=== PATIENT | female | born 1975 | race African-American/Black ===

== ENCOUNTER 2019-07-18 19:41 | Inpatient (IN) | payer OTHER ==
[~2019-07-18 19:41] MED LIST: PROPOFOL 10 MG/ML 20 ML VIAL IV ONE; SUCCINYLCHOLINE CHLORIDE VIAL 200 MG/10 ML VIAL IV ONE
[2019-07-18] MEDS ORDERED: KETOROLAC 30 MG/ML 1 ML VIAL IVP STA (23:50)
--- NOTE | 2019-07-19 00:37 | P.HPIM ---
History of Present Illness H&P Date: 07/18/19 Chief Complaint: cough SOB I was wearing full PPE during this encounter including N95 mask, face shield, double gloves, gown, and head cover. patient had a surgical mask on during my entire interview. i maintained 6 feet distance with the patient who verbalized understanding about these precautionary measures. except for during my physical exam where i had to be close to the patient. 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 Patient denies any recent traveling. Patient was hospitalized briefly on July 05 when she initially presented to [facility]. No recent surgeries no history of blood clots She went back to the hospital today due to increased work of breathing she was found to be hypoxic 87% on room air she was started on supplemental oxygen and currently satting 100% on 5 L nasal cannula Otherwise patient denies any other medical history Patient doesn't take any medications at home Significant blood work from [facility] Covid positive Chest x-ray showed diffuse bilateral infiltrates White BC count 16 Platelets 511 Lymphocytes 3.14 D-dimer 2.7 this is for prognostic evaluation of Covid and this is not done due to suspicion of underlying blood clots ProBNP negative Troponins negative Review of Systems Pertinent positives as noted in HPI. All other systems were reviewed and are negative Past Medical History Past Medical History: Fibromyalgia History of Any Multi-Drug Resistant Organisms: None Reported Past Surgical History: Hysterectomy, Tonsillectomy Additional Past Surgical History / Comment(s): Tubes tied, emergency D+C, breast reduction Past Anesthesia/Blood Transfusion Reactions: No Reported Reaction Past Psychological History: No Psychological Hx Reported Smoking Status: Never smoker Past Alcohol Use History: None Reported Past Drug Use History: None Reported - Past Family History Family Family Medical History: No Reported History Medications and Allergies Allergies Allergy/AdvReac Type Severity Reaction Status Date / Time No Known Allergies Allergy Verified 07/18/19 23:49 Physical Exam Vitals: Vital Signs Temp Pulse Resp BP Pulse Ox 07/18/19 22:14 102.7 F H 134 H 14 125/71 94 L Intake and Output 07/18/19 07/18/19 07/19/19 14:59 22:59 06:59 Output Total 200 Balance -200 Output: Urine 200 Other: # Voids 1 Weight 78 kg Limited exam was done during this encounter, to decrease spread of the disease and infection health care workers as patient is confirmed Kovic positive patient Constitutional: No acute distress, conversant, pleasant, and nasal cannula Eyes: Anicteric sclerae, Pupils equal round ENMT: NC/AT Neck: Supple, FROM, Lungs: Normal respiratory effort, no accessory muscle use Cardiovascular: No peripheral edema Abdominal: Soft Nontender, no guarding, rebound or rigidity Abdomen moving with respiration No palpable mass Skin: Visible portion of the skin Normal temperature, tone, texture, turgor Extremities: No digital cyanosis Capillary refill immediate No calf tenderness Psychiatric: Alert and oriented to person, place and time Appropriate affect fair judgement Neuro patient is moving all extremities Lymphatics: Deferred Thrombosis Risk Factor Assmnt - Choose All That Apply Any of the Below Risk Factors Present?: No Other Risk Factors: No Other congenital or acquired thrombophilia - If yes, enter type in comment: No Thrombosis Risk Factor Assessment Level: Very Low Risk Assessment and Plan Assessment: 44-year-old female with fibromyalgia Patient was transferred from [facility] for covid 19 pneumonia, this was confirmed by blood work resulted on July 16. Anticipated length of stay more than 2 midnights Acute hypoxic respiratory failure Atypical Pneumonia secondary to Covid positive cannot rule out underlying bacterial infection D-dimer is elevated this is of poor prognostic factor with Covid patient's Start patient on plaque renal Rocephin for suspected bacterial infection pneumonia Doxycycline for suspected atypical pneumonia Check CRP, LDH, pro calcitonin, CPK, check ferritin. This is for prognostic evaluation Check blood culture Check influenza Fever control with Tylenol Pain control with Toradol zinc pO Preformed a thorough record review from recent hospitalization [facility] reviewed transfer paper work Supplemental oxygen to keep both sides more than 92% CODE STATUS:ful code DVT prophylaxis: heparin sc tid Discussed with: Patient, ER, RN Anticipated length of stay > than [address]: [facility] A total of 60 minutes was spent on the care of this complex patient more than 50% of the time was spent in counseling and care coordination.
[2019-07-19] MEDS ORDERED: ACETAMINOPHEN TAB 325 MG TAB PO PRN (00:38)
[2019-07-19] MEDS ORDERED: NALOXONE 0.4 MG/ML 1 ML VIAL IV PRN (00:38)
--- NOTE | 2019-07-19 01:46 | XR ---
EXAMINATION TYPE: XR chest 1V DATE OF EXAM: 07/19/2019 COMPARISON: NONE HISTORY: Fever. Short of breath TECHNIQUE: FINDINGS: Heart and mediastinum appear normal. There is patchy pulmonary edema. There is coalescent d ensity in both lower lobes. There are chest leads. IMPRESSION: Patchy pulmonary edema could relate to RDS or acute heart failure.
[2019-07-19] MEDS: DOXYCYCLINE 100 MG CAP PO SCH ×3 (02:09→21:48)
[2019-07-19] MEDS: HYDROXYCHLOROQUINE SULFATE 200 MG TAB PO SCH ×3 (02:09→21:48)
[2019-07-19 03:24] LABS: C Reactive Protein 188.9 mg/L (<10.0)
[2019-07-19] MEDS: HEPARIN SODIUM,PORCINE 5,000 UNIT/ML 1 ML VIAL SQ SCH ×2 (07:06→16:34)
[2019-07-19] MEDS: KETOROLAC 30 MG/ML 1 ML VIAL IVP PRN (07:06)
[2019-07-19] MEDS: ZINC SULFATE 220 MG CAP PO SCH (07:06)
[2019-07-19 10:22] LABS: Basophils % (A) 0 %; Eosinophils # (A) 0.1 k/uL (0-0.7); Eosinophils % (A) 1 %; HCT 36.6 % (34.0-46.0); HGB 11.4 gm/dL (11.4-16.0); Lymphocytes # (A) 1.3 k/uL (1.0-4.8); Lymphocytes % (A) 7 %; MCH 30.1 pg (25.0-35.0); MCHC 31.3 g/dL (31.0-37.0); MCV 96.2 fL (80.0-100.0); Mean Platelet Volume 7.6; Monocytes # (A) 1.3 k/uL (0-1.0); Monocytes % (A) 6 %; Neutrophils # (A) 16.7 k/uL (1.3-7.7); Neutrophils % (A) 84 %; Platelet Count 510 k/uL (150-450); RDW 12.6 % (11.5-15.5); WBC 19.9 k/uL (3.8-10.6)
[2019-07-19 11:25] LABS: Ferritin 953.2 ng/mL (10.0-291.0)
[2019-07-19 11:47] LABS: ABG Base Excess 2.6 mmol/L; ABG HCO3 27 mmol/L (21-25); ABG Oxygen Saturation 96.7 % (94-97); ABG PCO2 40 mmHg (35-45); ABG PH 7.44 (7.35-7.45); ABG PO2 86 mmHg (83-108); ABG TCO2 28 mmol/L (19-24); Allen Test Performed? Yes
[2019-07-19] MEDS ORDERED: ACETAMINOPHEN IV (For NPO) 1,000 MG in EMPTY BAG 1 BAG IVPB ONE (12:12)
--- NOTE | 2019-07-19 13:58 | P.CNPUL ---
<Dominga Roman M - Last Filed: 07/19/19 13:58> History of Present Illness Consult date: 07/19/19 Reason for consult: dyspnea History of present illness: 44-year-old -[place] female a resident of [place], who was a transfer from [facility] yesterday on 07/18/2019. Patient presented with 2 week history of progressive worsening coughing, generalized weakness, intermittent fevers, generalized body aches and chest discomfort across the chest, mainly on the left side. Patient was unsure about loss of taste or smell sensation. Denied any GI symptoms, no abdominal pain, denied any known Clovid exposure. However patient started a new job and she had some traveling back and forth from [place]. She had a recent visit to the hospital o n July 05 and she was tested for COVID and the test came back positive on July 16. On presentation yesterday on 07/18/2019 patient was hypoxic, short of breath, with increased work of breathing, her pulse ox was 87% on room air, x- ray showing diffuse bilateral infiltrates, labs showing leukocytosis with white blood cell count of 19.9 hemoglobin of 11.4, lactic acid was 1.2, ferritin was 953.2, LDH was 1327, CK was 67, CRP was 188.9, influenza screen was negative. Chest x-ray shows patchy pulmonary infiltrates that could relate to ARDS. Possibility of pulmonary edema, heart failure is less likely given the positive history of Covid 19 infection. Review of Systems All systems: negative Constitutional: Denies chills, Denies fever Eyes: denies blurred vision, denies pain Ears, nose, mouth and throat: Denies headache, Denies sore throat Cardiovascular: Denies chest pain, Denies shortness of breath Respiratory: Reports dyspnea, Denies cough Gastrointestinal: Denies abdominal pain, Denies diarrhea, Denies nausea, Denies vomiting Genitourinary: Denies dysuria, Denies hematuria Musculoskeletal: Denies myalgias Integumentary: Denies pruritus, Denies rash Neurological: Denies numbness, Denies weakness Psychiatric: Denies anxiety, Denies depression Endocrine: Denies fatigue, Denies weight change Past Medical History Past Medical History: Fibromyalgia History of Any Multi-Drug Resistant Organisms: None Reported Past Surgical History: Hysterectomy, Tonsillectomy Additional Past Surgical History / Comment(s): Tubes tied, emergency D+C, breast reduction Past Anesthesia/Blood Transfusion Reactions: No Reported Reaction Past Psychological History: No Psychological Hx Reported Smoking Status: Never smoker Past Alcohol Use History: None Reported Past Drug Use History: None Reported - Past Family History Family Family Medical History: No Reported History Medications and Allergies Home Medications Medication Instructions Recorded Confirmed Type Albuterol Inhaler [Ventolin Hfa 1 - 2 puff INHALATION RT-Q4H PRN 07/19/19 07/19/19 History Inhaler] Ipratropium-Albuterol Nebulize 3 ml INHALATION RT-QID PRN 07/19/19 07/19/19 History [Duoneb 0.5 mg-3 mg/3 ml Soln] Allergies Allergy/AdvReac Type Severity Reaction Status Date / Time No Known Allergies Allergy Verified 07/19/19 08:59 Physical Exam Vitals: Vital Signs Temp Pulse Resp BP Pulse Ox 07/19/19 10:58 97.9 F 54 L 26 H 109/71 100 07/19/19 08:00 54 L 22 07/19/19 07:00 98.5 F 126 H 22 100/69 98 07/19/19 03:26 98.2 F 112 H 14 101/61 98 07/18/19 22:14 102.7 F H 134 H 14 125/71 94 L Intake and Output 07/18/19 07/19/19 07/19/19 22:59 06:59 14:59 Intake Total 50 Output Total 400 Balance -350 Intake: Intake, IV Titration 50 Amount cefTRIAXone 1 gm In 50 Sodium Chloride 0.9% 50 ml @ 100 mls/hr IVPB Q24H [facility] Rx#:[id number] Output: Urine 400 Other: Voiding Method Toilet Toilet # Voids 1 Weight 78 kg GENERAL EXAM: Alert, very pleasant, 42 mechanical female, mildly tachypneic, on 5 L of oxygen comfortable in no apparent distress. Mildly dyspneic, and complaining of some discomfort in her left chest with deep breathing and coughing HEAD: Normocephalic/atraumatic. EYES: Normal reaction of pupils, equal size. Conjunctiva pink, sclera white. NOSE: Clear with pink turbinates. THROAT: No erythema or exudates. NECK: No masses, no JVD, no thyroid enlargement, no adenopathy. CHEST: No chest wall deformity. Symmetrical expansion. LUNGS: Equal air entry with no crackles, wheeze, rhonchi or dullness. CVS: Regular rate and rhythm, normal S1 and S2, no gallops, no murmurs, no rubs ABDOMEN: Soft, nontender. No hepatosplenomegaly, normal bowel sounds, no guarding or rigidity. EXTREMITIES: No clubbing, no edema, no cyanosis, 2+ pulses and upper and lower extremities. MUSCULOSKELETAL: Muscle strength and tone normal. SPINE: No scoliosis or deformity SKIN: No rashes CENTRAL NERVOUS SYSTEM: Alert and oriented -3. No focal deficits, tone is normal in all 4 extremities. PSYCHIATRIC: Alert and oriented -3. Appropriate affect. Intact judgment and insight. Results - Laboratory Findings CBC and BMP: 07/19/19 09:52 ABG ABG pH 7.44 (7.35-7.45) 07/19/19 11:43 ABG pCO2 40 mmHg (35-45) 07/19/19 11:43 ABG pO2 86 mmHg (83-108) 07/19/19 11:43 ABG O2 Saturation 96.7 % (94-97) 07/19/19 11:43 Abnormal lab findings: Abnormal Labs 07/19/19 07/19/19 07/19/19 01:31 09:52 11:43 WBC 19.9 H Plt Count 510 H Neutrophils # 16.7 H Monocytes # 1.3 H ABG HCO3 27 H ABG Total CO2 28 H Ferritin 953.2 H Lactate Dehydrogenase 1327 H C-Reactive Protein 188.9 H - Diagnostic Findings Chest x-ray: report reviewed, image reviewed Assessment and Plan Plan: Assessment: #1. Acute hypercapnic respiratory failure related to acute COVID19 infection related ARDS, possibility of acute congestive heart failure is less likely given the history of COVID 19 infection #2. Elevated d-dimer, LDH, CRP, ferritin, related to acute Covid 19 infection #3. Intermittent fevers, cough, shortness of breath related to the above #4. History of fibromyalgia #5. Never smoker #6. History of tubal ligation, breast reduction, and emergency D&C Plan: Blood gas has been obtained and reviewed, patient has been seen and evaluated by Dr. Hough. She is mildly dyspneic, she is currently on 5 L of oxygen, we will continue to monitor her on selective care, in case her oxygen demand increases, we will transfer to the intensive care unit, and likely place her on mechanical ventilator, she is mildly dyspneic, but no acute distress right now, she can continue to be monitored on the floor. Her lab work has been reviewed, she is already on a combination of hydroxychloroquine, Rocephin, doxycycline and zinc. Chest x-ray has been reviewed, findings are consistent with ARDS limited to Covid 19 infection. Continue to closely monitor her clinical course I performed a history & physical examination of the patient and discussed their management with my nurse practitioner, Dominga Roman. I reviewed the nurse practitioner's note and agree with the documented findings and plan of care. Lung sounds are positive for diminished breath sounds. The findings and the impression was discussed with the patient. I attest to the documentation by the nurse practitioner. Time with Patient: Greater than 30 <Ida Hough - Last Filed: 07/19/19 13:59> Physical Exam Vitals: Vital Signs Temp Pulse Resp BP Pulse Ox 07/19/19 10:58 97.9 F 54 L 26 H 109/71 100 07/19/19 08:00 54 L 22 07/19/19 07:00 98.5 F 126 H 22 100/69 98 07/19/19 03:26 98.2 F 112 H 14 101/61 98 07/18/19 22:14 102.7 F H 134 H 14 125/71 94 L Intake and Output 07/18/19 07/19/19 07/19/19 22:59 06:59 14:59 Intake Total 50 Output Total 400 Balance -350 Intake: Intake, IV Titration 50 Amount cefTRIAXone 1 gm In 50 Sodium Chloride 0.9% 50 ml @ 100 mls/hr IVPB Q24H [facility] Rx#:[id number] Output: Urine 400 Other: Voiding Method Toilet Toilet # Voids 1 Weight 78 kg Results - Laboratory Findings CBC and BMP: 07/19/19 09:52 ABG ABG pH 7.44 (7.35-7.45) 07/19/19 11:43 ABG pCO2 40 mmHg (35-45) 07/19/19 11:43 ABG pO2 86 mmHg (83-108) 07/19/19 11:43 ABG O2 Saturation 96.7 % (94-97) 07/19/19 11:43 Abnormal lab findings: Abnormal Labs 07/19/19 07/19/19 07/19/19 01:31 09:52 11:43 WBC 19.9 H Plt Count 510 H Neutrophils # 16.7 H Monocytes # 1.3 H ABG HCO3 27 H ABG Total CO2 28 H Ferritin 953.2 H Lactate Dehydrogenase 1327 H C-Reactive Protein 188.9 H Assessment and Plan Plan: This is a joint evaluation that was done with the nurse practitioner. The patient we will monitored very closely. She is on 4 L of oxygen by nasal cannula. Blood gases was noted. Chest x-ray was noted. She will likely need to be transferred to the intensive care unit if her condition gets worse. We'll follow.
[2019-07-19] MEDS: ACETAMINOPHEN TAB 500 MG TAB PO PRN ×2 (16:34→21:45)
--- NOTE | 2019-07-19 20:44 | P.PN ---
Subjective Progress Note Date: 07/19/19 (delayed charting seen at 1115) Principal diagnosis: shortness of breath Patient is a 44-year-old -[place] female past medical history of fibromyalgia who presented as a transfer from [facility] as part of the Covid 19 relief process. Patient had been having symptoms starting on July 05 and she was tested for Covid which came back on July 16 as positive. She init ially been hospitalized for one day. She went back to the hospital on 07/18/2019 due to increased work of breathing. She was found to be hypoxic at 87% on room air, chest x-ray showed diffuse bilateral infiltrates, white blood cell count 16, platelets 511, lymphocytes 3.14, d-dimer 2.5 and BNP and troponins were negative. She was subsequently transferred here. She was started on hydroxychloroquine, doxycycline for possible atypical pneumonia and Rocephin for possible secondary bacterial infection. Patient seen and examined at bedside. She complains of shortness of breath, fatigue, chest pain. She states she is just feeling tired and having a hard time staying awake. She states that her chest discomfort is increasing. She denies any nausea, vomiting, or diarrhea. Objective - Vital Signs Vital signs: Vital Signs Temp 98.7 F 07/19/19 15:00 Pulse 112 H 07/19/19 15:49 Resp 24 07/19/19 15:49 BP 99/60 07/19/19 15:00 Pulse Ox 96 07/19/19 15:00 Intake & Output 07/19/19 07/19/19 07/20/19 06:59 18:59 06:59 Intake Total 50 500 Output Total 400 200 Balance -350 300 Weight 78 kg Intake: Intake, IV Titration 50 100 Amount ACETAMINOPHEN IV (For NPO 100 ) 1,000 mg In Empty Bag 1 bag @ 400 mls/hr IVPB ONCE ONE Rx#:[id number] cefTRIAXone 1 gm In 50 Sodium Chloride 0.9% 50 ml @ 100 mls/hr IVPB Q24H [facility] Rx#:[id number] Oral 400 Output: Urine 400 200 Other: Voiding Method Toilet Toilet # Voids 1 3 - Exam General: ill appearing, mild distress, appears at stated age Derm: warm, dry Head: atraumatic, normocephalic, symmetric Eyes: EOMI, no lid lag, anicteric sclera Mouth: no lip lesion, mucus membranes moist Cardiovascular: S1S2 reg, no murmur, positive posterior tibial pulse bilateral, Lungs: course bs bilateral, + accessory muscle use, + 2 word conversation dyspnea Abdominal: soft, nontender to palpation, no guarding, no appreciable organomegaly Ext: no gross muscle atrophy, no edema, no contractures Neuro: CN II-XI grossly intact, no focal neuro deficits Psych: Alert, oriented, appropriate affect - Labs CBC & Chem 7: 07/19/19 09:52 Labs: Abnormal Lab Results - Last 24 Hours (Table) 07/19/19 07/19/19 07/19/19 Range/Units 01:31 01:31 09:52 WBC 19.9 H (3.8-10.6) k/uL Plt Count 510 H (150-450) k/uL Neutrophils # 16.7 H (1.3-7.7) k/uL Monocytes # 1.3 H (0-1.0) k/uL ABG HCO3 (21-25) mmol/L ABG Total CO2 (19-24) mmol/L Ferritin 953.2 H (10.0-291.0) ng/mL Lactate Dehydrogenase 1327 H (313-618) U/L C-Reactive Protein 188.9 H (<10.0) mg/L Procalcitonin >100.00 H (0.02-0.09) ng/mL 07/19/19 Range/Units 11:43 WBC (3.8-10.6) k/uL Plt Count (150-450) k/uL Neutrophils # (1.3-7.7) k/uL Monocytes # (0-1.0) k/uL ABG HCO3 27 H (21-25) mmol/L ABG Total CO2 28 H (19-24) mmol/L Ferritin (10.0-291.0) ng/mL Lactate Dehydrogenase (313-618) U/L C-Reactive Protein (<10.0) mg/L Procalcitonin (0.02-0.09) ng/mL Assessment and Plan Assessment: Bilateral pneumonia which is atypical, COVID-19 positive infection, acute hypoxic respiratory failure, sepsis -Cannot rule out secondary bacterial infection currently on Doxy and Rocephin -Follow CRP, LDH, pro-calcitonin, CPK, and ferritin. -Influenza negative -Procalcitonin greatly positive -Chest x-ray shows patchy pulmonary edema related to acute heart failure or RDS - BNP in AM - Stat ABG obtained - Pulm consulted - hydorxychloriquine, zinc Costochondritis -Tylenol and Toradol for pain control Fibromyalgia Supportive care DVT prophylaxis: Heparin Discussed with: patient, nursing, Dr Hough Anticipated discharge: 5-[address]: home A total of 45 minutes was spent on the care of this complex patient more than 50% of the time was spent in counseling and care coordination.
[2019-07-19] MEDS: SODIUM CHLORIDE 0.9% 1,000 ML IV SCH (21:49)
--- NOTE | 2019-07-19 23:19 | P.CONS ---
History of Present Illness - Reason for Consult Consult date: 07/19/19 COVID 19 PNEUMONIA Requesting physician: John Paul Johnson - Chief Complaint Shortness of breath and cogh x days - History of Present Illness Patient is a 44-year-old female with a past medical history significant for fibromyalgia presented to [facility] with worsening cough generalized weakness and body aches patient was noticed to be hypoxic with an O2 sats of 87% on room air requiring supplemental oxygen patient had did have a COVID-19 testing which came back positive chest x-ray shows diffuse bilateral infiltrate patient subsequently has been transferred to [facility] for further management of underlying COVID-19 infection. On examination patient T-max is 102 F she is currently satting 96% on 5 L nasal cannula Lung examination did shows decrease intensity of breath sounds with mild wheeze Chest x-ray with patchy pulmonary infiltrate A/P--- patient with acute COVID-19 pneumonia patient will be treated with Plaquenil zinc may benefit from low-dose steroids along with supplemental oxygen prognosis remains to be guarded with concern for worsening respiratory distress and ARDS that need to be monitored closely Past Medical History Past Medical History: Fibromyalgia History of Any Multi-Drug Resistant Organisms: None Reported Past Surgical History: Hysterectomy, Tonsillectomy Additional Past Surgical History / Comment(s): Tubes tied, emergency D+C, breast reduction Past Anesthesia/Blood Transfusion Reactions: No Reported Reaction Past Psychological History: No Psychological Hx Reported Smoking Status: Never smoker Past Alcohol Use History: None Reported Past Drug Use History: None Reported - Past Family History Family Family Medical History: No Reported History Medications and Allergies Home Medications Medication Instructions Recorded Confirmed Type Albuterol Inhaler [Ventolin Hfa 1 - 2 puff INHALATION RT-Q4H PRN 07/19/19 07/19/19 History Inhaler] Ipratropium-Albuterol Nebulize 3 ml INHALATION RT-QID PRN 07/19/19 07/19/19 History [Duoneb 0.5 mg-3 mg/3 ml Soln] Allergies Allergy/AdvReac Type Severity Reaction Status Date / Time No Known Allergies Allergy Verified 07/19/19 08:59 Physical Exam Vitals: Vital Signs Temp Pulse Resp BP Pulse Ox 07/19/19 10:58 97.9 F 54 L 26 H 109/71 100 07/19/19 08:00 54 L 22 07/19/19 07:00 98.5 F 126 H 22 100/69 98 07/19/19 03:26 98.2 F 112 H 14 101/61 98 07/18/19 22:14 102.7 F H 134 H 14 125/71 94 L Intake and Output 07/19/19 07/19/19 07/19/19 06:59 14:59 22:59 Intake Total 50 Output Total 400 Balance -350 Intake: Intake, IV Titration 50 Amount cefTRIAXone 1 gm In 50 Sodium Chloride 0.9% 50 ml @ 100 mls/hr IVPB Q24H [facility] Rx#:[id number] Output: Urine 400 Other: Voiding Method Toilet Toilet # Voids 1 Results CBC & Chem 7: 07/19/19 09:52 Labs: Abnormal Lab Results - Last 24 Hours (Table) 07/19/19 07/19/19 07/19/19 Range/Units 01:31 01:31 09:52 WBC 19.9 H (3.8-10.6) k/uL Plt Count 510 H (150-450) k/uL Neutrophils # 16.7 H (1.3-7.7) k/uL Monocytes # 1.3 H (0-1.0) k/uL ABG HCO3 (21-25) mmol/L ABG Total CO2 (19-24) mmol/L Ferritin 953.2 H (10.0-291.0) ng/mL Lactate Dehydrogenase 1327 H (313-618) U/L C-Reactive Protein 188.9 H (<10.0) mg/L Procalcitonin >100.00 H (0.02-0.09) ng/mL 07/19/19 Range/Units 11:43 WBC (3.8-10.6) k/uL Plt Count (150-450) k/uL Neutrophils # (1.3-7.7) k/uL Monocytes # (0-1.0) k/uL ABG HCO3 27 H (21-25) mmol/L ABG Total CO2 28 H (19-24) mmol/L Ferritin (10.0-291.0) ng/mL Lactate Dehydrogenase (313-618) U/L C-Reactive Protein (<10.0) mg/L Procalcitonin (0.02-0.09) ng/mL
[2019-07-20] MEDS ORDERED: SODIUM CHLORIDE 0.9% 500 ML 500 ML IV ONE (00:08)
[2019-07-20] MEDS: KETOROLAC 30 MG/ML 1 ML VIAL IVP PRN ×3 (00:13→19:35)
[2019-07-20] MEDS: HEPARIN SODIUM,PORCINE 5,000 UNIT/ML 1 ML VIAL SQ SCH ×4 (00:14→23:54)
[2019-07-20 07:53] LABS: Basophils % (A) 0 %; Eosinophils # (A) 0.1 k/uL (0-0.7); Eosinophils % (A) 1 %; HCT 32.5 % (34.0-46.0); Hypochromasia Slight; Lymphocytes # (A) 1.1 k/uL (1.0-4.8); Lymphocytes % (A) 5 %; MCH 29.7 pg (25.0-35.0); MCHC 30.7 g/dL (31.0-37.0); MCV 96.6 fL (80.0-100.0); Mean Platelet Volume 7.7; Monocytes % (A) 4 %; Neutrophils # (A) 20.4 k/uL (1.3-7.7); Neutrophils % (A) 89 %; Platelet Count 474 k/uL (150-450); RBC 3.36 m/uL (3.80-5.40); RDW 12.9 % (11.5-15.5)
[2019-07-20 08:10] LABS: ALT 18 U/L (4-34); AST 24 U/L (14-36); African American GFR (CKD) >90 (>60 ml/min/1.73 sqM); Albumin 2.8 g/dL (3.5-5.0); Alkaline Phosphatase 84 U/L (38-126); Anion Gap 6 mmol/L; Blood Urea Nitrogen 12 mg/dL (7-17); Calcium 8.5 mg/dL (8.4-10.2); Carbon Dioxide 25 mmol/L (22-30); Chloride 105 mmol/L (98-107); Creatine Kinase 63 U/L (30-135); Glucose 101 mg/dL (74-99); LDH 995 U/L (313-618); Non-African American GFR(CKD) >90 (>60 ml/min/1.73 sqM); Potassium 4.4 mmol/L (3.5-5.1); Sodium 136 mmol/L (137-145); Total Bilirubin 0.7 mg/dL (0.2-1.3); Total Protein 6.1 g/dL (6.3-8.2)
[2019-07-20] MEDS: DOXYCYCLINE 100 MG CAP PO SCH (08:12)
[2019-07-20] MEDS: ZINC SULFATE 220 MG CAP PO SCH (08:12)
[2019-07-20] MEDS: HYDROXYCHLOROQUINE SULFATE 200 MG TAB PO SCH ×2 (08:12→21:05)
[2019-07-20 08:52] LABS: C Reactive Protein 349.8 mg/L (<10.0)
--- NOTE | 2019-07-20 10:01 | XR ---
EXAMINATION TYPE: XR chest 1V portable DATE OF EXAM: 07/20/2019 HISTORY: PNEUMONIA, covid. REFERENCE: Previous study dated 07/19/2019. FINDINGS: There are patchy peripheral infiltrates. There is lobar consolidation in the left lower lob e. Heart size is upper limits of normal. There is blunting of the left CP angle. I could not exclude a left effusion. The overall appearance may have worsened slightly from previous. IMPRESSION: SLIGHT WORSENING IN THE APPEARANCE OF THE CHEST COMPARED TO THE PREVIOUS STUDY.
[2019-07-20] MEDS ORDERED: SODIUM CHLORIDE 0.9% 1,000 ML IV ONE ×2 (10:13→11:40)
[2019-07-20] MEDS: ACETAMINOPHEN TAB 500 MG TAB PO PRN ×2 (11:08→19:45)
[2019-07-20] MEDS ORDERED: VANCOMYCIN IV PER PHARMACY 1 EACH MISC MISCELLANE PRN (11:29)
[2019-07-20] MEDS: PIPERACILLIN-TAZOBACTAM 3.375 GM in SODIUM CHLORIDE 0.9% 100 ML IVPB SCH ×2 (11:40→21:05)
[2019-07-20] MEDS ORDERED: VANCOMYCIN 1,500 MG in SODIUM CHLORIDE 0.9% 250 ML IVPB ONE (12:00)
--- NOTE | 2019-07-20 13:13 | P.PN ---
Subjective Progress Note Date: 07/20/19 Principal diagnosis: Acute hypoxemic respiratory failure secondary to an acute covert 19 infection related to ARDS 44-year-old -[place] female a resident of [place], who was a transfer from [facility] yesterday on 07/18/2019. Patient presented with 2 week history of progressive worsening coughing, generalized weakness, intermittent fevers, generalized body aches and chest discomfort across the chest, mainly on the left side. Patient was unsure about loss of taste or smell sensation. Denied any GI symptoms, no abdominal pain, denied any known Clovid exposure. However patient started a new job and she had some traveling back and forth from [place]. She had a recent visit to the hospital on July 05 and she was tested for COVID and the test came back positive on July 16. On presentation yesterday on 07/18/2019 patient was hypoxic, short of breath, with increased work of breathing, her pulse ox was 87% on room air, x- ray showing diffuse bilateral infiltrates, labs showing leukocytosis with white blood cell count of 19.9 hemoglobin of 11.4, lactic acid was 1.2, ferritin was 953.2, LDH was 1327, CK was 67, CRP was 188.9, influenza screen was negative. Chest x-ray shows patchy pulmonary infiltrates that could relate to ARDS. Pos sibility of pulmonary edema, heart failure is less likely given the positive history of Covid 19 infection. The patient is seen today 07/20/2019 in follow-up on the regular medical floor. She is currently resting fairly comfortably in bed. She is still short of breath with exertion. Still with a dry nonproductive cough. She is currently on 3 L/m per nasal cannula and maintaining O2 saturations at 97%. She is febrile this morning at 100.3. Tachycardic. Blood pressure stable. White count 23.0. Hemoglobin 10.0. D-dimer 2.36. Sodium 136. Potassium 4.4. Creatinine 0.61. AST 24. ALT 18. C-reactive protein 350. Albumin 2.8. Chest x-ray shows worsening consolidation in the left lower lobe. Blood culture reveals no growth. She is currently on ceftriaxone. She is being treated with Plaquenil and zinc. Objective - Vital Signs Vital signs: Vital Signs Temp 100.3 F H 07/20/19 11:00 Pulse 145 H 07/20/19 11:00 Resp 17 07/20/19 11:00 BP 127/70 07/20/19 11:00 Pulse Ox 97 07/20/19 11:00 Intake & Output 07/19/19 07/20/19 07/20/19 18:59 06:59 18:59 Intake Total 500 Output Total 200 Balance 300 Intake: Intake, IV Titration 100 Amount ACETAMINOPHEN IV (For NPO 100 ) 1,000 mg In Empty Bag 1 bag @ 400 mls/hr IVPB ONCE ONE Rx#:[id number] Oral 400 Output: Urine 200 Other: Voiding Method Toilet Toilet # Voids 3 1 - Exam GENERAL EXAM: Alert, very pleasant, 44 year-old -[place] female, mildly tachypneic, on 3 L of oxygen comfortable in no acute distress. Mildly dyspneic, and complaining of some discomfort in her left chest with deep breathing and co ughing HEAD: Normocephalic/atraumatic. EYES: Normal reaction of pupils, equal size. Conjunctiva pink, sclera white. NOSE: Clear with pink turbinates. THROAT: No erythema or exudates. NECK: No masses, no JVD, no thyroid enlargement, no adenopathy. CHEST: No chest wall deformity. Symmetrical expansion. LUNGS: Equal air entry with bilateral rhonchi, crackles in the left base. CVS: Regular rate and rhythm, normal S1 and S2, no gallops, no murmurs, no rubs ABDOMEN: Soft, nontender. No hepatosplenomegaly, normal bowel sounds, no guarding or rigidity. EXTREMITIES: No clubbing, no edema, no cyanosis, 2+ pulses and upper and lower extremities. MUSCULOSKELETAL: Muscle strength and tone normal. SPINE: No scoliosis or deformity SKIN: No rashes CENTRAL NERVOUS SYSTEM: No focal deficits, tone is normal in all 4 extremities. PSYCHIATRIC: Alert and oriented -3. Appropriate affect. Intact judgment and insight. - Labs CBC & Chem 7: 07/20/19 07:24 07/20/19 07:24 Labs: Abnormal Lab Results - Last 24 Hours (Table) 07/19/19 07/20/19 07/20/19 Range/Units 01:31 07:24 07:24 WBC 23.0 H (3.8-10.6) k/uL RBC 3.36 L (3.80-5.40) m/uL Hgb 10.0 L (11.4-16.0) gm/dL Hct 32.5 L (34.0-46.0) % MCHC 30.7 L (31.0-37.0) g/dL Plt Count 474 H (150-450) k/uL Neutrophils # 20.4 H (1.3-7.7) k/uL D-Dimer (<0.60) mg/L FEU Sodium 136 L (137-145) mmol/L Glucose 101 H (74-99) mg/dL Lactate Dehydrogenase 995 H (313-618) U/L C-Reactive Protein 349.8 H (<10.0) mg/L Total Protein 6.1 L (6.3-8.2) g/dL Albumin 2.8 L (3.5-5.0) g/dL Procalcitonin >100.00 H (0.02-0.09) ng/mL 07/20/19 Range/Units 07:24 WBC (3.8-10.6) k/uL RBC (3.80-5.40) m/uL Hgb (11.4-16.0) gm/dL Hct (34.0-46.0) % MCHC (31.0-37.0) g/dL Plt Count (150-450) k/uL Neutrophils # (1.3-7.7) k/uL D-Dimer 2.36 H (<0.60) mg/L FEU Sodium (137-145) mmol/L Glucose (74-99) mg/dL Lactate Dehydrogenase (313-618) U/L C-Reactive Protein (<10.0) mg/L Total Protein (6.3-8.2) g/dL Albumin (3.5-5.0) g/dL Procalcitonin (0.02-0.09) ng/mL Microbiology - Last 24 Hours (Table) 07/19/19 01:31 Blood Culture - Preliminary Blood No Growth after 24 hours Assessment and Plan Assessment: #1. Acute hypercapnic respiratory failure related to acute COVID19 infection related ARDS, possibility of acute congestive heart failure is less likely given the history of COVID 19 infection. Today's chest x-ray shows worsening consolidation in the left lower lung #2. Elevated d-dimer, LDH, CRP, ferritin, related to acute Covid 19 infection #3. Intermittent fevers, cough, shortness of breath related to the above #4. History of fibromyalgia #5. Never smoker #6. History of tubal ligation, breast reduction, and emergency D&C Plan: The patient was seen and evaluated by Dr. Hough Chest x-ray does show worsening left lower lobe consolidation Probable secondary infection on top of Covid 19 Antibiotics changed from ceftriaxone and doxycycline to vancomycin and Zosyn Continue Plaquenil and zinc Repeat chest x-ray in a.m. Monitor oxygenation closely We will continue to follow make further recommendations based on her clinical status I, the cosigning physician, performed a history & physical examination of the patient. Lungs sounds with bilateral scattered rhonchi crackles in left base. Maintaining good O2 saturations in the 90s on 3 L/m per nasal cannula. I discussed the assessment and plan of care with my nurse practitioner, Antonieta Murguia. I attest to the above note as dictated by her.
--- NOTE | 2019-07-20 17:12 | P.PN ---
Subjective Progress Note Date: 07/20/19 (delayed charting see at 0900) Principal diagnosis: shortness of breath Patient is a 44-year-old -[place] female past medical history of fibromyalgia who presented as a transfer from [facility] as part of the Covid 19 relief process. Patient had been having symptoms starting on July 05 and she was tested for Covid which came back on July 16 as positive. She initi ally been hospitalized for one day. She went back to the hospital on 07/18/2019 due to increased work of breathing. She was found to be hypoxic at 87% on room air, chest x-ray showed diffuse bilateral infiltrates, white blood cell count 16, platelets 511, lymphocytes 3.14, d-dimer 2.5 and BNP and troponins were negative. She was subsequently transferred here. She was started on hydroxychloroquine, doxycycline for possible atypical pneumonia and Rocephin for possible secondary bacterial infection. On her O2 requirements increased and pul was consulted they agreed with plan of care. On the morning of she was having increased work of breathing and her heart rate was up to 154. She was given 2 1L bolus with good result. WBC increasing and CXR with more consolidation her ABX were changed to zosyn and vanco. Patient seen and examined at bedside. She complains of shortness of breath, fatigue, chest pain. She states she is just feeling tired and having a hard time staying awake. She states that her chest discomfort is increasing. She denies any nausea, vomiting, or diarrhea. Objective - Vital Signs Vital signs: Vital Signs Temp 97.7 F 07/20/19 15:00 Pulse 114 H 07/20/19 15:00 Resp 17 07/20/19 15:00 BP 112/76 07/20/19 15:00 Pulse Ox 100 07/20/19 15:00 Intake & Output 07/19/19 07/20/19 07/20/19 18:59 06:59 18:59 Intake Total 500 2470 Output Total 200 Balance 300 2470 Intake: Intake, IV Titration 100 2350 Amount ACETAMINOPHEN IV (For NPO 100 ) 1,000 mg In Empty Bag 1 bag @ 400 mls/hr IVPB ONCE ONE Rx#:[id number] Piperacillin-Tazobactam 3 100 .375 gm In Sodium Chloride 0.9% 100 ml @ 25 mls/hr IVPB Q8H [facility] Rx#: [id number] Sodium Chloride 0.9% 1, 1000 000 ml @ 999 mls/hr IV . Q1H1M ONE Rx#:[id number] Sodium Chloride 0.9% 1, 1000 000 ml @ 999 mls/hr IV . Q1H1M ONE Rx#:[id number] Vancomycin 1,500 mg In 250 Sodium Chloride 0.9% 250 ml @ 125 mls/hr IVPB Q12HR [facility] Rx#:[id number] Oral 400 120 Output: Urine 200 Other: Voiding Method Toilet Toilet # Voids 3 1 - Exam General: ill appearing, mild distress, appears at stated age Derm: warm, diaphoretic Head: atraumatic, normocephalic, symmetric Eyes: EOMI, no lid lag, anicteric sclera Mouth: no lip lesion, mucus membranes moist Cardiovascular: S1S2 tachy, no murmur, positive posterior tibial pulse bilateral, Lungs: course bs bilateral, + accessory muscle use, + 2 word conversational dyspnea Abdominal: soft, nontender to palpation, no guarding, no appreciable organomeg torrey Ext: no gross muscle atrophy, no edema, no contractures Neuro: CN II-XI grossly intact, no focal neuro deficits Psych: Alert, oriented, appropriate affect - Labs CBC & Chem 7: 07/20/19 07:24 07/20/19 07:24 Labs: Abnormal Lab Results - Last 24 Hours (Table) 07/20/19 07/20/19 07/20/19 Range/Units 07:24 07:24 07:24 WBC 23.0 H (3.8-10.6) k/uL RBC 3.36 L (3.80-5.40) m/uL Hgb 10.0 L (11.4-16.0) gm/dL Hct 32.5 L (34.0-46.0) % MCHC 30.7 L (31.0-37.0) g/dL Plt Count 474 H (150-450) k/uL Neutrophils # 20.4 H (1.3-7.7) k/uL D-Dimer 2.36 H (<0.60) mg/L FEU Sodium 136 L (137-145) mmol/L Glucose 101 H (74-99) mg/dL Lactate Dehydrogenase 995 H (313-618) U/L C-Reactive Protein 349.8 H (<10.0) mg/L Total Protein 6.1 L (6.3-8.2) g/dL Albumin 2.8 L (3.5-5.0) g/dL Microbiology - Last 24 Hours (Table) 07/19/19 01:31 Blood Culture - Preliminary Blood No Growth after 24 hours Assessment and Plan Assessment: left lower lobe pneumonia with bilateral pneumonitis suspect secondary bacterial infection with COVID-19 positive infection, acute hypoxic respiratory failure, sepsis -Cannot rule out secondary bacterial infection Doxy and Rocephin increased to vanco and zosyn -Follow CRP, LDH, pro-calcitonin, CPK, and ferritin. -Influenza negative -Procalcitonin greatly positive - follow CXR - BNP in AM - Pulm recs appreciated - hydorxychloriquine, zinc - 2L bolus Costochondritis -Tylenol and Toradol for pain control Fibromyalgia Supportive care DVT prophylaxis: Heparin Discussed with: patient, nursing, Dr Hough Anticipated discharge: 5-[address]: home A total of 35 minutes was spent on the care of this complex patient more than 50% of the time was spent in counseling and care coordination.
[2019-07-20] MEDS ORDERED: guaiFENesin-Coden 100-10MG/5ML 10 ML CUP PO PRN (17:47)
[2019-07-20 18:34] LABS: ABG Base Excess -2.1 mmol/L; ABG HCO3 22 mmol/L (21-25); ABG Oxygen Saturation 94.2 % (94-97); ABG PCO2 33 mmHg (35-45); ABG PH 7.43 (7.35-7.45); ABG PO2 70 mmHg (83-108); ABG TCO2 23 mmol/L (19-24); Allen Test Performed? Yes
[2019-07-20] MEDS: SODIUM CHLORIDE 0.9% 1,000 ML IV SCH ×2 (19:34→23:54)
[2019-07-20 20:06] LABS: Glucose,Whole Blood 99 mg/dL (75-99)
--- NOTE | 2019-07-20 20:54 | XR ---
EXAMINATION TYPE: XR chest 1V DATE OF EXAM: 07/20/2019 COMPARISON: Today HISTORY: Pneumonia. Chest pain TECHNIQUE: FINDINGS: There is airspace consolidation left lower lobe involving entire left lower lobe. There is also mild infiltrate right lower lobe. There is pulmonary vascular congestion. Heart is enlarged. The re are chest leads. IMPRESSION: Bilateral pneumonia much worse on the left side unchanged compared to exam this morning. Congestive heart failure is possible.
[2019-07-20] MEDS: VANCOMYCIN 1,500 MG in SODIUM CHLORIDE 0.9% 250 ML IVPB SCH (21:05)
[2019-07-20 23:22] LABS: Ferritin 787.5 ng/mL (10.0-291.0)
[2019-07-21] MEDS: PIPERACILLIN-TAZOBACTAM 3.375 GM in SODIUM CHLORIDE 0.9% 100 ML IVPB SCH ×3 (04:50→19:47)
[2019-07-21 05:29] LABS: Basophils % (A) 0 %; Eosinophils % (A) 0 %; HCT 23.6 % (34.0-46.0); HGB 8.7 gm/dL (11.4-16.0); Hypochromasia Marked; Lymphocytes # (A) 1.3 k/uL (1.0-4.8); Lymphocytes % (A) 6 %; MCH 37.1 pg (25.0-35.0); MCHC 36.9 g/dL (31.0-37.0); MCV 100.6 fL (80.0-100.0); Mean Platelet Volume 7.6; Monocytes # (A) 1.2 k/uL (0-1.0); Monocytes % (A) 6 %; Neutrophils # (A) 18.2 k/uL (1.3-7.7); Neutrophils % (A) 86 %; Platelet Count 458 k/uL (150-450); RBC 2.35 m/uL (3.80-5.40)
[2019-07-21 05:34] LABS: ALT 15 U/L (4-34); AST 32 U/L (14-36); African American GFR (CKD) >90 (>60 ml/min/1.73 sqM); Albumin 2.6 g/dL (3.5-5.0); Alkaline Phosphatase 136 U/L (38-126); Anion Gap 8 mmol/L; Blood Urea Nitrogen 8 mg/dL (7-17); Calcium 7.8 mg/dL (8.4-10.2); Carbon Dioxide 19 mmol/L (22-30); Chloride 110 mmol/L (98-107); Creatine Kinase 120 U/L (30-135); Glucose 81 mg/dL (74-99); LDH 1877 U/L (313-618); Magnesium 2.1 mg/dL (1.6-2.3); Non-African American GFR(CKD) >90 (>60 ml/min/1.73 sqM); Potassium 4.8 mmol/L (3.5-5.1); Sodium 137 mmol/L (137-145); Total Bilirubin 0.8 mg/dL (0.2-1.3)
--- NOTE | 2019-07-21 06:53 | XR ---
EXAMINATION TYPE: XR chest 1V DATE OF EXAM: 07/21/2019 HISTORY: LLL pneumonia. REFERENCE: Previous study dated 07/20/2019. FINDINGS: There is continuing bilateral airspace disease, worse on the left than the right. This may have worsened slightly on the right. Heart size is obscured. I suspect a left effusion. IMPRESSION: 1. BIBASILAR INFILTRATES. 2. I CANNOT EXCLUDE SLIGHT WORSENING IN THE PATIENT'S RIGHT BASILAR AIRSPACE DISEASE.
[2019-07-21 07:13] LABS: C Reactive Protein 414.9 mg/L (<10.0)
--- NOTE | 2019-07-21 08:05 | PN ---
PROGRESS NOTE DATE OF SERVICE: 07/20/2019 REASON FOR FOLLOWUP: Acute COVID-19 pneumonia. INTERVAL HISTORY: The patient has been running a fever in this patient noticed to have slightly increased shortness of breath this morning. The patient denies having any chest pain. She did have a cough, not bringing up any sputum. No nausea, no vomiting. No abdominal pain or any diarrhea. PHYSICAL EXAMINATION: Blood pressure is 130/73 with a pulse of 150, temperature 102.7. She is 98% on 6 L nasal cannula. General description is a middle-aged female lying in bed in no distress. Respiratory system: Unlabored breathing, decreased breath sounds in the base, with no wheeze. Heart S1, S2. Regular rate and rhythm. Abdomen soft, no tenderness. LABS: Hemoglobin is 10, white count 3000, BUN of 12, creatinine 0.61. DIAGNOSTIC IMPRESSION AND PLAN: Patient with acute respiratory failure which is likely multifactorial in this patient who did have a component of acute COVID-19 pneumonia, positive, now with worsening infiltrate with concern for possibly pneumonia. The patient has been started on broad spectrum antibiotic, vanco with Zosyn to continue. Will try to obtain a sputum to narrow down antibiotics and monitor clinical course closely. Overall prognosis remains to be guarded. MMODL / IJN: [id number] /
[2019-07-21] MEDS ORDERED: ACETAMINOPHEN IV (For NPO) 1,000 MG in EMPTY BAG 1 BAG IVPB STA (08:41)
[2019-07-21] MEDS: fentaNYL (PF) 1,000 MCG in SODIUM CHLORIDE 0.9% 80 ML IV SCH ×3 (08:59→22:06)
[2019-07-21] MEDS: CISATRACURIUM 2 MG/ML 5 ML VIAL IV ONE ×2 (09:01→09:28)
[2019-07-21] MEDS: KETOROLAC 30 MG/ML 1 ML VIAL IVP PRN (09:17)
[2019-07-21 09:52] LABS: ABG Base Excess -5.1 mmol/L; ABG HCO3 20 mmol/L (21-25); ABG PCO2 32 mmHg (35-45); ABG PO2 320 mmHg (83-108); ABG TCO2 21 mmol/L (19-24); Allen Test Performed? Yes
[2019-07-21] MEDS: HEPARIN SODIUM,PORCINE 5,000 UNIT/ML 1 ML VIAL SQ SCH ×3 (09:54→23:49)
--- NOTE | 2019-07-21 09:54 | XR ---
EXAMINATION TYPE: XR chest 1V portable DATE OF EXAM: 07/21/2019 HISTORY: intubated. REFERENCE: Previous study dated 07/21/2019. FINDINGS: The patient has been intubated.R ET tube is in satisfactory position 6 cm above the guillermo. There are patchy infiltrates throughout both lungs. There is confluent airspace disease the left lung base. There are small bilateral effusions, greater on the left than the right. Heart size is obscure d. IMPRESSION: 1. SATISFACTORY ET TUBE PLACEMENT. 2. DIFFUSE INFILTRATES THROUGHOUT BOTH LUNGS MOST MARKED AT THE LEFT LUNG BASE WITH SMALL, CONCOMITAN T EFFUSIONS.
[2019-07-21] MEDS: HYDROXYCHLOROQUINE SULFATE 200 MG TAB PO SCH ×2 (09:55→19:52)
[2019-07-21] MEDS: VANCOMYCIN 1,500 MG in SODIUM CHLORIDE 0.9% 250 ML IVPB SCH ×3 (09:55→23:56)
[2019-07-21] MEDS: ZINC SULFATE 220 MG CAP PO SCH (09:56)
[2019-07-21] MEDS ORDERED: CISATRACURIUM 2 MG/ML 5 ML VIAL IV ONE (10:38)
[2019-07-21] MEDS ORDERED: ARTIFICIAL TEARS-HYPROMELLOSE DROPS 15 ML BTL BOTH EYES PRN (10:38)
[2019-07-21] MEDS ORDERED: PROPOFOL 1,000 MG in EMPTY BAG 1 BAG IV SCH (11:00)
[2019-07-21] MEDS: CISATRACURIUM 200 MG in SODIUM CHLORIDE 0.9% 180 ML IV SCH (11:05)
[2019-07-21] MEDS: PROPOFOL 1,000 MG in EMPTY BAG 1 BAG IV SCH ×2 (11:08→15:42)
[2019-07-21] MEDS: SODIUM CHLORIDE 0.9% 1,000 ML IV SCH ×2 (13:37→19:50)
--- NOTE | 2019-07-21 13:55 | P.PN ---
Subjective Progress Note Date: 07/21/19 44-year-old -Citizen Of [place] female a resident of [place], who was a transfer from [facility] yesterday on 07/18/2019. Patient presented with 2 week history of progressive worsening coughing, generalized weakness, intermittent fevers, generalized body aches and chest discomfort acr oss the chest, mainly on the left side. Patient was unsure about loss of taste or smell sensation. Denied any GI symptoms, no abdominal pain, denied any known Clovid exposure. However patient started a new job and she had some traveling back and forth from [place]. She had a recent visit to the hospital on July 05 and she was tested for COVID and the test came back positive on July 16. On pr esentation yesterday on 07/18/2019 patient was hypoxic, short of breath, with increased work of breathing, her pulse ox was 87% on room air, x-ray showing diffuse bilateral infiltrates, labs showing leukocytosis with white blood cell count of 19.9 hemoglobin of 11.4, lactic acid was 1.2, ferritin was 953.2, LDH was 1327, CK was 67, CRP was 188.9, influenza screen was negative. Chest x-ray shows patchy pulmonary infiltrates that could relate to ARDS. Possibility of pulmonary edema, heart failure is less likely given the positive history of Covid 19 infection. The patient is seen today 07/20/2019 in follow-up on the regular medical floor. She is currently resting fairly comfortably in bed. She is still short of breath with exertion. Still with a dry nonproductive cough. She is currently on 3 L/m per nasal cannula and maintaining O2 saturations at 97%. She is febrile this morning at 100.3. Tachycardic. Blood pressure stable. White count 23.0. Hemoglobin 10.0. D-dimer 2.36. Sodium 136. Potassium 4.4. Creatinine 0.61. AST 24. ALT 18. C-reactive protein 350. Albumin 2.8. Chest x-ray shows worsening consolidation in the left lower lobe. Blood culture reveals no growth. She is currently on ceftriaxone. She is being treated with Plaquenil and zinc. On 07/21/2019, the patient's breathing decompensated and the patient became progressively more tachypneic and she was brought into the intensive care unit with severe respiratory distress and hypoxemia earlier this morning. Note that the patient is a case of acute Covid 19 pneumonia and the patient is suspected t o have a left lower lobe bacterial pneumonia at the left lower lobe was quite consolidated and the patient had elevated for pro-calcitonin level and the patient was being cheered for a hospital-acquired pneumonia utilizing a combination of Zosyn and vancomycin. The patient was on 6 L of oxygen by nasal cannula and progressively her oxygen requirements went up and she ultimately had to be intubated and placed on a mechanical ventilator. She is still spiking high-grade fever with a temperature max of 103 earlier today. In terms of Covid 19 treatment, the patient is on a combination of Plaquenil and zinc sulfate. The patient is also on Zosyn and Levaquin regarding left lower lobe pneumonia. Cultures are still pending for now. Meanwhile, the white cell count is elevated at 21 with a 86% neutrophilia. The LDH level is 1877. CPK is at 120. CRP level is at 414 which is elevated compared to yesterday. Pro-calcitonin level was more than 100. Ferritin level is pending for now. Based on all this, the patient was brought into the ICU and the patient was intubated and placed on a mechanical ventilator. I put this patient on assist control mode with a rate of 26 with a tidal volume of 400 and FiO2 of 100% with a PEEP of 15. Peptic. Pressure was 35 with a steady given a pressure of 33. Post intubation blood gas showed improvement in the patient's oxygenation. Her pH is at 7.4 with a pCO2 of 32 and pO2 of 320. The chest x-ray post intubation showed satisfactory ET tube placement. There was diffuse infiltrates throughout both lungs most markedly in left lower lobe which seems to be more consolidated. An effusion in the left lower lobe cannot be completely ruled out. The patient was given IV fluid boluses the patient was becoming hypotensive. Her overall fluid balance is 3.7 L positive for now. Triple-lumen catheter was established in the right femoral vein and an outlying catheter was also established. Sputum Gram stain and culture is to be collected. The d-dimer today is at 2.25. Objective - Vital Signs Vital signs: Vital Signs Temp 99.9 F H 07/21/19 12:00 Pulse 94 07/21/19 12:15 Resp 26 H 07/21/19 12:15 BP 85/54 07/21/19 12:15 Pulse Ox 98 04/05/20 12:15 Intake & Output 07/20/19 07/21/19 07/21/19 18:59 06:59 18:59 Intake Total 2470 1900 589.478 Output Total 600 480 Balance 2470 1300 109.478 Weight 81 kg Intake: IV 900 500 .9 900 500 Intake, IV Titration 2350 1000 89.478 Amount Piperacillin-Tazobactam 3 100 .375 gm In Sodium Chloride 0.9% 100 ml @ 25 mls/hr IVPB Q8H [facility] Rx#: [id number] Propofol 1,000 mg In 46.008 Empty Bag 1 bag @ Titrate IV .Q0M [facility] Rx#: [id number] Sodium Chloride 0.9% 1, 1000 000 ml @ 999 mls/hr IV . Q1H1M [facility] Rx#:[id number] Sodium Chloride 0.9% 1, 1000 1000 000 ml @ 999 mls/hr IV . Q1H1M [facility] Rx#:[id number] Vancomycin 1,500 mg In 250 Sodium Chloride 0.9% 250 ml @ 125 mls/hr IVPB Q12HR [facility] Rx#:[id number] fentaNYL (PF) 1,000 mcg 43.470 In Sodium Chloride 0.9% 80 ml @ 1 MCG/KG/HR 8.1 mls/hr IV .[id number] [facility] Rx #:[id number] Oral 120 Output: Urine 600 480 ABP, PAP, CO, CI - Last Documented Arterial Blood Pressure 92/47 - Exam Gen. appearance the patient is currently sedated and calm and comfortable intubated on a mechanical ventilator and orogastric and orotracheal tube are both in place. HEAD: Normocephalic/atraumatic. EYES: Normal reaction of pupils, equal size. Conjunctiva pink, sclera white. NOSE: Clear with pink turbinates. THROAT: No erythema or exudates. NECK: No masses, no JVD, no thyroid enlargement, no adenopathy. CHEST: No chest wall deformity. Symmetrical expansion. LUNGS: Equal air entry with bilateral rhonchi, crackles in the left base. The patient symptoms the mechanical ventilator for now. CVS: Regular rate and rhythm, normal S1 and S2, no gallops, no murmurs, no rubs ABDOMEN: Soft, nontender. No hepatosplenomegaly, normal bowel sounds, no guarding or rigidity. EXTREMITIES: No clubbing, no edema, no cyanosis, 2+ pulses and upper and lower extremities. MUSCULOSKELETAL: Muscle strength and tone normal. SPINE: No scoliosis or deformity SKIN: No rashes CENTRAL NERVOUS SYSTEM: The patient is well sedated and the patient is calm and comfortable for now. She was moving all 4 extremities prior to the intubation process. Pupils are equal and reactive to light. No focal neurological deficit. - Labs CBC & Chem 7: 07/21/19 04:11 07/21/19 04:11 Labs: Abnormal Lab Results - Last 24 Hours (Table) 07/20/19 07/20/19 07/21/19 Range/Units 07:24 18:30 04:11 WBC 21.0 H (3.8-10.6) k/uL RBC 2.35 L (3.80-5.40) m/uL Hgb 8.7 L (11.4-16.0) gm/dL Hct 23.6 L (34.0-46.0) % MCV 100.6 H (80.0-100.0) fL MCH 37.1 H (25.0-35.0) pg Plt Count 458 H (150-450) k/uL Neutrophils # 18.2 H (1.3-7.7) k/uL Monocytes # 1.2 H (0-1.0) k/uL D-Dimer (<0.60) mg/L FEU ABG pCO2 33 L (35-45) mmHg ABG pO2 70 L (83-108) mmHg ABG HCO3 (21-25) mmol/L ABG O2 Saturation (94-97) % Chloride (98-107) mmol/L Carbon Dioxide (22-30) mmol/L Creatinine (0.52-1.04) mg/dL Calcium (8.4-10.2) mg/dL Ferritin 787.5 H (10.0-291.0) ng/mL Alkaline Phosphatase (38-126) U/L Lactate Dehydrogenase (313-618) U/L C-Reactive Protein (<10.0) mg/L Total Protein (6.3-8.2) g/dL Albumin (3.5-5.0) g/dL 07/21/19 07/21/19 07/21/19 Range/Units 04:11 04:11 09:45 WBC (3.8-10.6) k/uL RBC (3.80-5.40) m/uL Hgb (11.4-16.0) gm/dL Hct (34.0-46.0) % MCV (80.0-100.0) fL MCH (25.0-35.0) pg Plt Count (150-450) k/uL Neutrophils # (1.3-7.7) k/uL Monocytes # (0-1.0) k/uL D-Dimer 2.25 H (<0.60) mg/L FEU ABG pCO2 32 L (35-45) mmHg ABG pO2 320 H (83-108) mmHg ABG HCO3 20 L (21-25) mmol/L ABG O2 Saturation 100.0 H (94-97) % Chloride 110 H (98-107) mmol/L Carbon Dioxide 19 L (22-30) mmol/L Creatinine 0.50 L (0.52-1.04) mg/dL Calcium 7.8 L (8.4-10.2) mg/dL Ferritin (10.0-291.0) ng/mL Alkaline Phosphatase 136 H (38-126) U/L Lactate Dehydrogenase 1877 H (313-618) U/L C-Reactive Protein 414.9 H (<10.0) mg/L Total Protein 6.0 L (6.3-8.2) g/dL Albumin 2.6 L (3.5-5.0) g/dL Microbiology - Last 24 Hours (Table) 07/19/19 01:31 Blood Culture - Preliminary Blood No Growth after 48 hours Assessment and Plan Plan: 1 acute hypoxic respiratory failure, currently intubated on a mechanical ventilator. The patient was on 6 L of oxygen by nasal cannula and the patient progressive decompensated and she became quite short of breath or Neck and tachycardic and hypoxic, placed in the 100% nonrebreather facemask and subsequently she was intubated and placed on mechanical ventilator. 2 acute COVID 19 pneumonia with elevated LDH, CRP and ferritin. D-dimer is also elevated at 2.25 3 left lower lobe bacterial pneumonia is suspected as the patient has developed a new onset consolidation of left lung base and addition to significant elevation of the pro-calcitonin level and the white cell count came up to 21. Note that the patient was in the hospital where she stayed around a week prior to her arriving to our hospital. As such, healthcare acid pneumonia cannot be completely ruled out and the patient is covered with a combination of Zosyn and vancomycin pending further cultures. 4 leukocytosis 5 anemia with a drop in hemoglobin down to 8.7, normocytic, no evidence of any acute bleed 6 fever secondary to above 7 fibromyalgia, history of Plan Continue vent support and keep the patient on tidal volume of 400 with a rate of 26 and drop the FiO2 down to 40% Monitor PF ratio Monitor inflammatory markers including LDH, CRP, and d-dimer was Continue Zosyn and vancomycin for hospital-acquired pneumonia Continue Plaquenil and zinc sulfate IV Solu-Medrol 1 mg per KG divided 2 different doses for the next 3-7 days Heparin subcu for DVT prophylaxis IV Protonix Combination of sedation including propofol and fentanyl Established a lumen catheter Establish arterial line Initiate enteral feeding for nutritional support Condition is critical We'll continue to follow make further recommendations based on her progress. Physical to care evaluation that was on a more than 30 minutes. Time with Patient: Greater than 30
--- NOTE | 2019-07-21 13:57 | P.PCN ---
Date of Procedure: 07/21/19 Preoperative Diagnosis: Acute bilateral pneumonia, acute hypoxic respiratory failure Postoperative Diagnosis: Same Procedure(s) Performed: Insertion of a central line catheter and arterial line catheter Anesthesia: local Surgeon: Ida Hough Estimated Blood Loss (ml): 0 Pathology: none sent Condition: critical Disposition: ICU Operative Findings: Indication: Hemodynamic monitoring/Intravenous access. A time-out was completed verifying correct patient, procedure, site, positioning, and implant(s) or special equipment if applicable. The patient was placed in a dependent position appropriate for central line placement based on the vein to be cannulated. The patient right groin was prepped and draped in sterile fashion. 1% Lidocaine was used to anesthetize the surrounding skin area. A triple lumen 9F Cordis catheter was introduced into the right common femoral vein using Seldinger technique. The catheter was threaded smoothly over the guide wire and appropriate blood return was obtained. Each lumen of the catheter was evacuated of air and flushed with sterile saline. The catheter was then sutured in place to the skin and a sterile dressing applied. Perfusion to the extremity distal to the point of catheter insertion was checked and found to be adequate. The patient tolerated the procedure well and there were no complications. Indication: Hemodynamic monitoring. A time-out was completed verifying correct patient, procedure, site, positioni ng, and implant(s) or special equipment if applicable. Allens test was performed to ensure adequate perfusion. The patient right groin was prepped and draped in sterile fashion. 1% Lidocaine was used to anesthetize the area. An 18G Arrow arterial line was introduced into the femoral artery. The catheter was threaded over the guide wire and the needle was removed with appropriate pulsatile blood return. Blood loss was minimal. The catheter was then sutured in place to the skin and a sterile dressing applied. Perfusion to the extremity distal to the point of catheter insertion was checked and found to be adequate. The patient tolerated the procedure well and there were no complications.
[2019-07-21] MEDS: methylPREDNISolone SOD SUCCI 40 MG/ML 1 ML VIAL IV SCH ×2 (16:39→19:49)
[2019-07-21] MEDS: CHLORHEXIDINE GLUCONATE 15 ML CUP MUCOUS MEM SCH (19:47)
--- NOTE | 2019-07-21 20:18 | P.PN ---
Subjective Progress Note Date: 07/21/19 Principal diagnosis: shortness of breath Patient is a 44-year-old -Portuguese female past medical history of fibromyalgia who presented as a transfer from [facility] as part of the Covid 19 relief process. Patient had been having symptoms starting on July 05 and she was tested for Covid which came back on July 16 as positive. She initially been hospitalized for one day. She went back to the hospital on 07/18/2019 due to increased work of breathing. She was found to be hypoxic at 87% on room air, chest x-ray showed diffuse bilateral infiltrates, white blood cell count 16, platelets 511, lymphocytes 3.14, d-dimer 2.5 and BNP and troponins were negative. She was subsequently transferred here. She was started on hydroxychloroquine, doxycycline for possible atypical pneumonia and Rocephin for possible secondary bacterial infection. On her O2 requirements increased and pul was consulted they agreed with plan of care. On the morning of she was having increased work of breathing and her heart rate was up to 154. She was given 2 1L bolus with good result. WBC increasing and CXR with more consolidation her ABX were changed to zosyn and vanco. She had worsening respiratory distress. She was subsequently transferred to the ICU. She was int ubated on the morning of 07/21/2019. She was started on a Nimbex, propofol, and fentanyl. She was requiring large amounts of sedation. Patient seen and examined at bedside. Currently sedated and paralyzed on vent. Discussed with nursing. Patient intubated this morning at approximately 9:30. Had central line and arterial line placed. Objective - Vital Signs Vital signs: Vital Signs Temp 98.1 F 07/21/19 17:00 Pulse 84 07/21/19 19:15 Resp 26 H 07/21/19 19:15 BP 115/81 07/21/19 19:15 Pulse Ox 100 07/21/19 19:15 Intake & Output 07/21/19 07/21/19 07/22/19 06:59 18:59 06:59 Intake Total 1900 1827.143 100 Output Total 600 760 100 Balance 1300 1067.143 0 Weight 81 kg Intake: IV 900 1700 100 .9 900 1100 100 Zosyn 100 vancomycin 500 Intake, IV Titration 1000 127.143 Amount Propofol 1,000 mg In 81.243 Empty Bag 1 bag @ Titrate IV .Q0M [facility] Rx#: [id number] Sodium Chloride 0.9% 1, 1000 000 ml @ 999 mls/hr IV . Q1H1M [facility] Rx#:[id number] fentaNYL (PF) 1,000 mcg 45.900 In Sodium Chloride 0.9% 80 ml @ 1 MCG/KG/HR 8.1 mls/hr IV .[id number] [facility] Rx #:[id number] Output: Urine 600 760 100 Other: Voiding Method Indwelling Catheter ABP, PAP, CO, CI - Last Documented Arterial Blood Pressure 133/62 - Exam General: ill appearing, no distress, appears at stated age Derm: warm, diaphoretic Head: atraumatic, normocephalic, symmetric Eyes: No lip lesion anicteric sclera Mouth: no lip lesion, mucus membranes moist Cardiovascular: S1S2 tachy, no murmur, positive posterior tibial pulse bilateral, Lungs: course bs bilateral, on vent Abdominal: soft, nontender to palpation, no guarding, no appreciable organomegaly Ext: no gross muscle atrophy, no edema, no contractures Neuro: Paralyzed on vent, [id number] intact Psych: Sedated on vent - Labs CBC & Chem 7: 07/21/19 04:11 07/21/19 04:11 Labs: Abnormal Lab Results - Last 24 Hours (Table) 07/20/19 07/21/19 07/21/19 Range/Units 07:24 04:11 04:11 WBC 21.0 H (3.8-10.6) k/uL RBC 2.35 L (3.80-5.40) m/uL Hgb 8.7 L (11.4-16.0) gm/dL Hct 23.6 L (34.0-46.0) % MCV 100.6 H (80.0-100.0) fL MCH 37.1 H (25.0-35.0) pg Plt Count 458 H (150-450) k/uL Neutrophils # 18.2 H (1.3-7.7) k/uL Monocytes # 1.2 H (0-1.0) k/uL D-Dimer 2.25 H (<0.60) mg/L FEU ABG pCO2 (35-45) mmHg ABG pO2 (83-108) mmHg ABG HCO3 (21-25) mmol/L ABG O2 Saturation (94-97) % Chloride (98-107) mmol/L Carbon Dioxide (22-30) mmol/L Creatinine (0.52-1.04) mg/dL Calcium (8.4-10.2) mg/dL Ferritin 787.5 H (10.0-291.0) ng/mL Alkaline Phosphatase (38-126) U/L Lactate Dehydrogenase (313-618) U/L C-Reactive Protein (<10.0) mg/L Total Protein (6.3-8.2) g/dL Albumin (3.5-5.0) g/dL 07/21/19 07/21/19 Range/Units 04:11 09:45 WBC (3.8-10.6) k/uL RBC (3.80-5.40) m/uL Hgb (11.4-16.0) gm/dL Hct (34.0-46.0) % MCV (80.0-100.0) fL MCH (25.0-35.0) pg Plt Count (150-450) k/uL Neutrophils # (1.3-7.7) k/uL Monocytes # (0-1.0) k/uL D-Dimer (<0.60) mg/L FEU ABG pCO2 32 L (35-45) mmHg ABG pO2 320 H (83-108) mmHg ABG HCO3 20 L (21-25) mmol/L ABG O2 Saturation 100.0 H (94-97) % Chloride 110 H (98-107) mmol/L Carbon Dioxide 19 L (22-30) mmol/L Creatinine 0.50 L (0.52-1.04) mg/dL Calcium 7.8 L (8.4-10.2) mg/dL Ferritin (10.0-291.0) ng/mL Alkaline Phosphatase 136 H (38-126) U/L Lactate Dehydrogenase 1877 H (313-618) U/L C-Reactive Protein 414.9 H (<10.0) mg/L Total Protein 6.0 L (6.3-8.2) g/dL Albumin 2.6 L (3.5-5.0) g/dL Microbiology - Last 24 Hours (Table) 07/19/19 01:31 Blood Culture - Preliminary Blood No Growth after 48 hours Assessment and Plan Assessment: left lower lobe pneumonia with bilateral pneumonitis suspect secondary bacterial infection with COVID-19 positive infection, acute hypoxic respiratory failure, sepsis, ARDS -Darvin day #2 -Follow CRP, LDH, pro-calcitonin, CPK, and ferritin. -Influenza negative -Procalcitonin greatly positive - follow CXR -Vent management per pulmonary - hydorxychloriquine, zinc -Gentle IV fluids Anemia, worsening -Suspect dilutional, MCV and MCH increasing -Check B12 and folic acid Thrombocytosis -Suspect reactive -Follow CBC Costochondritis -Tylenol and Toradol for pain control Fibromyalgia -Supportive care DVT prophylaxis: Heparin Discussed with: patient, nursing, Dr Hough Anticipated discharge: Undetermined Anticipated discharge place: home A total of 35 minutes was spent on the care of this complex patient more than 50% of the time was spent in counseling and care coordination.
--- NOTE | 2019-07-21 21:27 | PN ---
PROGRESS NOTE DATE OF SERVICE: 07/21/2019 REASON FOR FOLLOWUP: Acute COVID-19 pneumonia. INTERVAL HISTORY: The patient did go into respiratory distress last night. The patient ended up getting intubated. The patient did spike a fever of 103 around 9 this morning. She is afebrile since then. Hemodynamically stable. Not requiring any pressor support. FiO2 is currently stable at 40% and no significant purulent secretions through the ET or diarrhea has been reported by the nursing staff. PHYSICAL EXAMINATION: Blood pressure 127/59, pulse of 84, temperature 98.1. She is 100% on 40% FiO2. General description is a middle-aged female lying in bed in no distress. Respiratory system: Unlabored breathing, decreased breath sounds at the base. No wheeze. Heart S1, S2. Regular rate and rhythm. Abdomen soft, no tenderness. LABS: Hemoglobin 8.7, white count 21,000. BUN of 8, creatinine 0.50. DIAGNOSTIC IMPRESSION AND PLAN: Patient with acute respiratory failure which is likely multifactorial. Did have Covid- 19 pneumonia, now with persistent fever with concern for underlying bacterial pneumonias. Sputum culture will be ordered. The patient is currently covered with Plaquenil, Solu-Medrol, vancomycin and Zosyn in view of the high risk of nephrotoxicity with vancomycin and Zosyn. Antibiotic adjusted to cefepime and Vanco and adjusted further based on the clinical response and culture. Continue supportive care. MMODL / IJN: [id number] /
[2019-07-21] MEDS: CEFEPIME 2 GM in SODIUM CHLORIDE 0.9% 100 ML IVPB SCH (22:07)
[2019-07-22 05:14] LABS: Basophils % (A) 0 %; Eosinophils % (A) 0 %; HCT 24.5 % (34.0-46.0); HGB 7.4 gm/dL (11.4-16.0); Hypochromasia Moderate; Lymphocytes # (A) 0.7 k/uL (1.0-4.8); Lymphocytes % (A) 3 %; MCH 29.3 pg (25.0-35.0); MCHC 30.4 g/dL (31.0-37.0); MCV 96.7 fL (80.0-100.0); Mean Platelet Volume 7.3; Monocytes # (A) 0.5 k/uL (0-1.0); Monocytes % (A) 2 %; Neutrophils # (A) 20.6 k/uL (1.3-7.7); Neutrophils % (A) 93 %; Platelet Count 521 k/uL (150-450); RBC 2.53 m/uL (3.80-5.40); RDW 13.2 % (11.5-15.5); WBC 22.1 k/uL (3.8-10.6)
[2019-07-22 05:21] LABS: ABG HCO3 19 mmol/L (21-25); ABG Oxygen Saturation 99.6 % (94-97); ABG PCO2 30 mmHg (35-45); ABG PO2 175 mmHg (83-108); ABG TCO2 20 mmol/L (19-24)
[2019-07-22 05:23] LABS: Allen Test Performed? no
[2019-07-22] MEDS: PROPOFOL 1,000 MG in EMPTY BAG 1 BAG IV SCH ×4 (05:43→21:07)
[2019-07-22] MEDS: fentaNYL (PF) 1,000 MCG in SODIUM CHLORIDE 0.9% 80 ML IV SCH ×3 (05:43→22:07)
[2019-07-22] MEDS: CISATRACURIUM 200 MG in SODIUM CHLORIDE 0.9% 180 ML IV SCH ×2 (05:43→21:07)
[2019-07-22 05:53] LABS: ALT 15 U/L (4-34); AST 21 U/L (14-36); African American GFR (CKD) >90 (>60 ml/min/1.73 sqM); Albumin 2.4 g/dL (3.5-5.0); Alkaline Phosphatase 133 U/L (38-126); Anion Gap 10 mmol/L; Blood Urea Nitrogen 9 mg/dL (7-17); Carbon Dioxide 18 mmol/L (22-30); Chloride 111 mmol/L (98-107); Creatine Kinase 57 U/L (30-135); Glucose 113 mg/dL (74-99); LDH 828 U/L (313-618); Non-African American GFR(CKD) >90 (>60 ml/min/1.73 sqM); Potassium 4.2 mmol/L (3.5-5.1); Sodium 139 mmol/L (137-145); Total Bilirubin 0.7 mg/dL (0.2-1.3); Total Protein 5.5 g/dL (6.3-8.2)
[2019-07-22 06:40] LABS: C Reactive Protein 345.2 mg/L (<10.0)
[2019-07-22 06:57] LABS: Glucose,Whole Blood 124 mg/dL (75-99)
[2019-07-22] MEDS ORDERED: VANCOMYCIN TROUGH DUE 1 EACH MISC MISCELLANE ONE (07:00)
--- NOTE | 2019-07-22 08:09 | XR ---
EXAMINATION TYPE: XR chest 1V portable DATE OF EXAM: 07/22/2019 COMPARISON: 07/21/2019 HISTORY: Ventilatory dependent respiratory failure TECHNIQUE: Single frontal view of the chest is obtained. FINDINGS: Improved aeration of the lungs, particularly within the right lung with right infrahilar a nd perihilar interstitial opacity remaining. More confluent airspace disease is seen in the left lung within the left lung base and left midlung silhouetting the hemidiaphragm and obscuring the costophr enic angle. Endotracheal tube is similar in position of the prior and could be advanced approximately 2 cm for more optimal placement. Enteric tube has been placed terminating off the distal end of the [id number], an appropriately positioned. IMPRESSION: 1. Improvement in the right perihilar and infrahilar interstitial airspace disease. 2. Persistent confluent left midlung and left basilar opacity with suspected trace to small left pleu ral effusion. 3. Endotracheal tube appears slightly cephalad in position approximately 6 cm from the guillermo, this c ould be advanced 2 cm for more optimal placement.
[2019-07-22] MEDS: CEFEPIME 2 GM in SODIUM CHLORIDE 0.9% 100 ML IVPB SCH ×2 (08:19→21:06)
[2019-07-22] MEDS: SODIUM CHLORIDE 0.9% 1,000 ML IV SCH ×2 (08:19→21:08)
[2019-07-22] MEDS: HEPARIN SODIUM,PORCINE 5,000 UNIT/ML 1 ML VIAL SQ SCH ×2 (08:19→15:21)
[2019-07-22] MEDS: VANCOMYCIN 1,500 MG in SODIUM CHLORIDE 0.9% 250 ML IVPB SCH ×2 (08:19→15:21)
[2019-07-22] MEDS: CHLORHEXIDINE GLUCONATE 15 ML CUP MUCOUS MEM SCH ×2 (08:20→21:06)
[2019-07-22] MEDS: methylPREDNISolone SOD SUCCI 40 MG/ML 1 ML VIAL IV SCH ×2 (08:20→21:06)
[2019-07-22] MEDS: PANTOPRAZOLE 40 MG/10 ML VIAL IVP SCH (08:20)
[2019-07-22] MEDS: HYDROXYCHLOROQUINE SULFATE 200 MG TAB PO SCH (08:20)
[2019-07-22] MEDS: ZINC SULFATE 220 MG CAP PO SCH (08:20)
[2019-07-22 11:50] LABS: Glucose,Whole Blood 127 mg/dL (75-99)
[2019-07-22 12:42] LABS: Ferritin 1267.7 ng/mL (10.0-291.0)
[2019-07-22 13:14] LABS: Ferritin 1239.4 ng/mL (10.0-291.0)
--- NOTE | 2019-07-22 14:36 | P.PN ---
Subjective Progress Note Date: 07/22/19 Principal diagnosis: Shortness of breath, acute Covid 19 pneumonia, ARDS Patient is a 44-year-old -[place] female past medical history of fibromyalgia who presented as a transfer from [facility] as part of the Covid 19 relief process. Patient had been having symptoms starting on July 05 and she was tested for Covid which came back on July 16 as positive. She ini tiay been hospitalized for one day. She went back to the hospital on 07/18/2019 due to increased work of breathing. She was found to be hypoxic at 87% on room air, chest x-ray showed diffuse bilateral infiltrates, white blood cell count 16, platelets 511, lymphocytes 3.14, d-dimer 2.5 and BNP and troponins were negative. She was subsequently transferred here. She was started on hydroxychloroquine, doxycycline for possible atypical pneumonia and Rocephin for possible secondary bacterial infection. On her O2 requirements increased and pul was consulted they agreed with plan of care. On the morning of she was having increased work of breathing and her heart rate was up to 154. She was given 2 1L bolus with good result. WBC increasing and CXR with more consolidation her ABX were changed to zosyn and vanco. She had worsening respiratory distress. She was subsequently transferred to the ICU. She was intubated on the morning of 07/21/2019. She was started on a Nimbex, propofol, and fentanyl. She was requiring large amounts of sedation. Patient seen and examined at bedside. Currently sedated and paralyzed on vent. Discussed with nursing. Patient intubated this morning at approximately 9:30. Had central line and arterial line placed. On 07/22/2019 patient seen in follow-up in the intensive care unit. She is sedated, intubated, on mechanical ventilator, current vent settings are assist- control with a rate of 26, tidal vital 400, FiO2 40% and PEEP of 5, this morning his blood gases revealed pO2 175, pCO2 of 30, pH of 7.40, this was done on FiO2 of 40%. Today's blood work shows persistent leukocytosis, with white blood cell count of 22.1, hemoglobin is 7.4, lymphopenia with lymphocyte count is 0.7, neutrophilia with neutrophil count of 20.6, d-dimer slightly trending down, 2.04, sodium is 139, potassium is 4.2, chloride is 111, CO2 is 18, BUN of 9, creatinine 0.48. Ferritin remains elevated at 1267, CRP down slightly, at 345, pro-calcitonin was greater than 100. Influenza screen was negative. Blood cultures were negative, sputum culture is pending. Fever pattern has improved, and last episode of fever was yesterday in the afternoon with a temp of 99.9F, afebrile overnight. Patient is currently on combination of cefepime, and vancomycin for antibiotic coverage, continues on IV Solu-Medrol, hydroxychloroquine. Today's chest x-ray shows some improvement in the right perihilar and infrahilar interstitial airspace disease, and persistent confluent left midlung and left basilar opacity with suspected trace to small left pleural effusion. Current IVs include 0.9 normal saline at a rate of 100 ML per hour, Diprivan is a 40 mics per kilo per minute, fentanyl at 1.5 mics per kilo per minute, Nimbex is at 2 mics per kilo per minute. No vasoactive drips. Objective - Vital Signs Vital signs: Vital Signs Temp 98.2 F 07/22/19 08:00 Pulse 80 07/22/19 10:00 Resp 26 H 07/22/19 10:00 BP 115/81 07/21/19 19:15 Pulse Ox 99 07/22/19 10:00 Intake & Output 07/21/19 07/22/19 07/22/19 18:59 06:59 18:59 Intake Total 1592.113 1640.373 713.527 Output Total 760 950 125 Balance 1067.143 921.373 588.527 Weight 84.1 kg 84.1 kg Intake: IV 1700 1200 700 .9 1100 1200 350 Cefepime 2 gm In Sodium 100 Chloride 0.9% 100 ml @ 200 mls/hr IVPB Q12HR [facility] Rx#:[id number] Vancomycin 1,500 mg In 250 Sodium Chloride 0.9% 250 ml @ 125 mls/hr IVPB Q8HR [facility] Rx#:[id number] Zosyn 100 vancomycin 500 Intake, IV Titration 127.143 671.373 13.527 Amount Cefepime 2 gm In Sodium 100 Chloride 0.9% 100 ml @ 200 mls/hr IVPB Q12HR [facility] Rx#:[id number] Cisatracurium 200 mg In 90.558 13.527 Sodium Chloride 0.9% 180 ml @ 1 MCG/KG/MIN 4.86 mls/hr IV .Q24H [facility] Rx#: [id number] Propofol 1,000 mg In 81.243 100 Empty Bag 1 bag @ Titrate IV .Q0M [facility] Rx#: [id number] Vancomycin 1,500 mg In 250 Sodium Chloride 0.9% 250 ml @ 125 mls/hr IVPB Q8HR [facility] Rx#:[id number] fentaNYL (PF) 1,000 mcg 45.900 130.815 In Sodium Chloride 0.9% 80 ml @ 1 MCG/KG/HR 8.1 mls/hr IV .[id number] [facility] Rx #:[id number] Output: Urine 760 950 125 Other: Voiding Method Indwelling Catheter Indwelling Catheter Indwelling Catheter ABP, PAP, CO, CI - Last Documented Arterial Blood Pressure 137/64 - Exam GENERAL EXAM: Sedated, intubated, 44-year-old -[place] female, currently on vent settings of before meals 26, tidal and 400, FiO2 of 40%, and PEEP of 15, comfortable in no apparent distress. HEAD: Normocephalic/atraumatic. EYES: Normal reaction of pupils, equal size. Conjunctiva pink, sclera white. NOSE: Clear with pink turbinates. THROAT: No erythema or exudates. NECK: No masses, no JVD, no thyroid enlargement, no adenopathy. CHEST: No chest wall deformity. Symmetrical expansion. LUNGS: Equal air entry with no crackles, wheeze, rhonchi or dullness. CVS: Regular rate and rhythm, normal S1 and S2, no gallops, no murmurs, no rubs ABDOMEN: Soft, nontender. No hepatosplenomegaly, normal bowel sounds, no guarding or rigidity. EXTREMITIES: No clubbing, no edema, no cyanosis, 2+ pulses and upper and lower extremities. MUSCULOSKELETAL: Muscle strength and tone normal. SPINE: No scoliosis or deformity SKIN: No rashes CENTRAL NERVOUS SYSTEM: Sedated, intubated. No focal deficits, tone is normal in all 4 extremities. - Labs CBC & Chem 7: 07/22/19 04:45 07/22/19 04:45 Labs: Abnormal Lab Results - Last 24 Hours (Table) 07/21/19 07/22/19 07/22/19 Range/Units 04:11 04:45 04:45 WBC 22.1 H (3.8-10.6) k/uL RBC 2.53 L (3.80-5.40) m/uL Hgb 7.4 L (11.4-16.0) gm/dL Hct 24.5 L (34.0-46.0) % MCHC 30.4 L (31.0-37.0) g/dL Plt Count 521 H (150-450) k/uL Neutrophils # 20.6 H (1.3-7.7) k/uL Lymphocytes # 0.7 L (1.0-4.8) k/uL D-Dimer 2.04 H (<0.60) mg/L FEU ABG pCO2 (35-45) mmHg ABG pO2 (83-108) mmHg ABG HCO3 (21-25) mmol/L ABG O2 Saturation (94-97) % Chloride (98-107) mmol/L Carbon Dioxide (22-30) mmol/L Creatinine (0.52-1.04) mg/dL Glucose (74-99) mg/dL POC Glucose (mg/dL) (75-99) mg/dL Calcium (8.4-10.2) mg/dL Ferritin 1239.4 H (10.0-291.0) ng/mL Alkaline Phosphatase (38-126) U/L Lactate Dehydrogenase (313-618) U/L C-Reactive Protein (<10.0) mg/L Total Protein (6.3-8.2) g/dL Albumin (3.5-5.0) g/dL 07/22/19 07/22/19 07/22/19 Range/Units 04:45 05:15 06:55 WBC (3.8-10.6) k/uL RBC (3.80-5.40) m/uL Hgb (11.4-16.0) gm/dL Hct (34.0-46.0) % MCHC (31.0-37.0) g/dL Plt Count (150-450) k/uL Neutrophils # (1.3-7.7) k/uL Lymphocytes # (1.0-4.8) k/uL D-Dimer (<0.60) mg/L FEU ABG pCO2 30 L (35-45) mmHg ABG pO2 175 H (83-108) mmHg ABG HCO3 19 L (21-25) mmol/L ABG O2 Saturation 99.6 H (94-97) % Chloride 111 H (98-107) mmol/L Carbon Dioxide 18 L (22-30) mmol/L Creatinine 0.48 L (0.52-1.04) mg/dL Glucose 113 H (74-99) mg/dL POC Glucose (mg/dL) 124 H (75-99) mg/dL Calcium 8.0 L (8.4-10.2) mg/dL Ferritin 1267.7 H (10.0-291.0) ng/mL Alkaline Phosphatase 133 H (38-126) U/L Lactate Dehydrogenase 828 H (313-618) U/L C-Reactive Protein 345.2 H (<10.0) mg/L Total Protein 5.5 L (6.3-8.2) g/dL Albumin 2.4 L (3.5-5.0) g/dL 07/22/19 Range/Units 11:49 WBC (3.8-10.6) k/uL RBC (3.80-5.40) m/uL Hgb (11.4-16.0) gm/dL Hct (34.0-46.0) % MCHC (31.0-37.0) g/dL Plt Count (150-450) k/uL Neutrophils # (1.3-7.7) k/uL Lymphocytes # (1.0-4.8) k/uL D-Dimer (<0.60) mg/L FEU ABG pCO2 (35-45) mmHg ABG pO2 (83-108) mmHg ABG HCO3 (21-25) mmol/L ABG O2 Saturation (94-97) % Chloride (98-107) mmol/L Carbon Dioxide (22-30) mmol/L Creatinine (0.52-1.04) mg/dL Glucose (74-99) mg/dL POC Glucose (mg/dL) 127 H (75-99) mg/dL Calcium (8.4-10.2) mg/dL Ferritin (10.0-291.0) ng/mL Alkaline Phosphatase (38-126) U/L Lactate Dehydrogenase (313-618) U/L C-Reactive Protein (<10.0) mg/L Total Protein (6.3-8.2) g/dL Albumin (3.5-5.0) g/dL Microbiology - Last 24 Hours (Table) 07/21/19 21:04 Sputum Culture - Preliminary Sputum 07/19/19 01:31 Blood Culture - Preliminary Blood No Growth after 72 hours Assessment and Plan Plan: Assessment: #1. Acute hypoxemic and hypercapnic respiratory failure related to acute COVID19 infection related ARDS, possibility of acute congestive heart failure is less likely given the history of COVID 19 infection. Patient progressively decompensated and required intubation and placement on mechanical ventilator on all 07/21/2019, current vent settings on 07/22/2019 are assist-control with a rate of 26, 400, FiO2 40% and PEEP of 15 #2. Acute Covid 19 pneumonia with elevated LDH, CRP and ferritin, d-dimer was also elevated at 2.25 #3. Left lower lobe bacterial pneumonia, patient developed a new onset consoli dation of left lung base in addition to significant elevation of the pro- calcitonin level and the white blood cell count of 22,000. Consideration is being given to healthcare acquired pneumonia as the patient was recently hospitalized a week ago, and she is being treated with a combination of cefepime and vancomycin pending further cultures #4. Leukocytosis related to the above #5. Anemia with a drop in hemoglobin, with no evidence of acute bleeding, and patient remains hemodynamics are stable #6. Fever secondary to acute pneumonia and Covid 19 infection #7. History of fibromyalgia #8. Never smoker #9. History of tubal ligation, breast reduction, and emergency D&C Plan: Continue current medical treatments, antibiotics per ID service recommendation, patient is on a combination of cefepime and vancomycin, sputum and blood cultures are pending, fever pattern has improved, today's chest x-ray still shows left lower lobe consolidation. Today's blood gas has been reviewed and PEEP will be dropped down to 12 cm of water. Continue with tube feedings, patient was given a paralytic holiday, and with that she developed cough and dyssynchrony with the ventilator, and she will be placed back on paralytic with [id number] monitoring. Continue with sedation including Diprivan and fentanyl. Patient is on IV Solu-Medrol, antibiotics, Plaquenil. Repeat chest x-ray, blood work in the morning. Repeat pro-calcitonin in the morning. We'll continue to closely follow I performed a history & physical examination of the patient and discussed their management with my nurse practitioner, Dominga Roman. I reviewed the nurse practitioner's note and agree with the documented findings and plan of care. Lung sounds are positive for diminished breath sounds. The findings and the impression was discussed with the patient. I attest to the documentation by the nurse practitioner. Time with Patient: Greater than 30
--- NOTE | 2019-07-22 17:14 | P.PN ---
Subjective Progress Note Date: 07/22/19 Principal diagnosis: COVID 19 pneumonia Patient is a 44-year-old -[place] female past medical history of fibromyalgia who presented as a transfer from [facility] as part of the Covid 19 relief process. Patient had been having symptoms starting on July 05 and she was tested for Covid which came back on July 16 as positive. She initially been hospitalized for one day. She went back to the hospital on 07/18/2019 due to increased work of breathing. She was found to be hypoxic at 87% on room air, chest x-ray showed diffuse bilateral infiltrates, white blood cell count 16, platelets 511, lymphocytes 3.14, d-dimer 2.5 and BNP and troponins were negative. She was subsequently transferred here. She was started on hydroxychloroquine, doxycycline for possible atypical pneumonia and Rocephin for possible secondary bacterial infection. On her O2 requirements increased and pul was consulted they agreed with plan of care. On the morning of she was having increased work of breathing and her heart rate was up to 154. She was given 2 1L bolus with good result. WBC increasing and CXR with more consolidation her ABX were changed to zosyn and vanco. She had worsening respiratory distress. She was subsequently transferred to the ICU. She was in tubated on the morning of 07/21/2019. She was started on a Nimbex, propofol, and fentanyl. She was requiring large amounts of sedation. Patient was seen and examined. Currently sedated on ventilator. Discussed with nursing, no reported events. Rate is 26. Tidal volume 400. FiO2 40%. PEEP of 12. Objective - Vital Signs Vital signs: Vital Signs Temp 99.0 F 07/22/19 12:00 Pulse 77 07/22/19 16:00 Resp 26 H 07/22/19 16:00 BP 126/77 07/22/19 13:00 Pulse Ox 98 07/22/19 16:00 Intake & Output 07/21/19 07/22/19 07/22/19 18:59 06:59 18:59 Intake Total 2666.359 0395.373 1163.527 Output Total 760 950 385 Balance 1067.143 921.373 778.527 Weight 84.1 kg 84.1 kg Intake: IV 1700 1200 950 .9 1100 1200 600 Cefepime 2 gm In Sodium 100 Chloride 0.9% 100 ml @ 200 mls/hr IVPB Q12HR [facility] Rx#:[id number] Vancomycin 1,500 mg In 250 Sodium Chloride 0.9% 250 ml @ 125 mls/hr IVPB Q8HR [facility] Rx#:[id number] Zosyn 100 vancomycin 500 Intake, IV Titration 127.143 671.373 213.527 Amount Cefepime 2 gm In Sodium 100 Chloride 0.9% 100 ml @ 200 mls/hr IVPB Q12HR [facility] Rx#:[id number] Cisatracurium 200 mg In 90.558 13.527 Sodium Chloride 0.9% 180 ml @ 1 MCG/KG/MIN 4.86 mls/hr IV .Q24H [facility] Rx#: [id number] Propofol 1,000 mg In 81.243 100 100 Empty Bag 1 bag @ Titrate IV .Q0M [facility] Rx#: [id number] Vancomycin 1,500 mg In 250 Sodium Chloride 0.9% 250 ml @ 125 mls/hr IVPB Q8HR [facility] Rx#:[id number] fentaNYL (PF) 1,000 mcg 45.900 130.815 100.000 In Sodium Chloride 0.9% 80 ml @ 1 MCG/KG/HR 8.1 mls/hr IV .[id number] [facility] Rx #:[id number] Output: Urine 760 950 385 Other: Voiding Method Indwelling Catheter Indwelling Catheter Indwelling Catheter ABP, PAP, CO, CI - Last Documented Arterial Blood Pressure 138/65 - Exam General: [non toxic], [intubated], [appears at stated age] Derm: [warm], [dry] Head: [atraumatic], [normocephalic], [symmetric] Eyes: [EOMI], [no lid lag], [anicteric sclera] Mouth: [no lip lesion], [mucus membranes moist] Cardiovascular: [S1S2 reg], [no murmur], [positive DP pulse bilateral], Lungs: [Coarse breath sounds bilateral], [no rhonchi, no rales] , [no accessory muscle use] Abdominal: [soft], [ nontender to palpation], [no guarding], [no appreciable organomegaly] Ext: [no gross muscle atrophy], [no edema], [no contractures] Neuro: [Unable to determine] Psych: [Unable to determine] - Labs CBC & Chem 7: 07/22/19 04:45 07/22/19 04:45 Labs: Abnormal Lab Results - Last 24 Hours (Table) 07/21/19 07/22/19 07/22/19 Range/Units 04:11 04:45 04:45 WBC 22.1 H (3.8-10.6) k/uL RBC 2.53 L (3.80-5.40) m/uL Hgb 7.4 L (11.4-16.0) gm/dL Hct 24.5 L (34.0-46.0) % MCHC 30.4 L (31.0-37.0) g/dL Plt Count 521 H (150-450) k/uL Neutrophils # 20.6 H (1.3-7.7) k/uL Lymphocytes # 0.7 L (1.0-4.8) k/uL D-Dimer 2.04 H (<0.60) mg/L FEU ABG pCO2 (35-45) mmHg ABG pO2 (83-108) mmHg ABG HCO3 (21-25) mmol/L ABG O2 Saturation (94-97) % Chloride (98-107) mmol/L Carbon Dioxide (22-30) mmol/L Creatinine (0.52-1.04) mg/dL Glucose (74-99) mg/dL POC Glucose (mg/dL) (75-99) mg/dL Calcium (8.4-10.2) mg/dL Ferritin 1239.4 H (10.0-291.0) ng/mL Alkaline Phosphatase (38-126) U/L Lactate Dehydrogenase (313-618) U/L C-Reactive Protein (<10.0) mg/L Total Protein (6.3-8.2) g/dL Albumin (3.5-5.0) g/dL 07/22/19 07/22/19 07/22/19 Range/Units 04:45 05:15 06:55 WBC (3.8-10.6) k/uL RBC (3.80-5.40) m/uL Hgb (11.4-16.0) gm/dL Hct (34.0-46.0) % MCHC (31.0-37.0) g/dL Plt Count (150-450) k/uL Neutrophils # (1.3-7.7) k/uL Lymphocytes # (1.0-4.8) k/uL D-Dimer (<0.60) mg/L FEU ABG pCO2 30 L (35-45) mmHg ABG pO2 175 H (83-108) mmHg ABG HCO3 19 L (21-25) mmol/L ABG O2 Saturation 99.6 H (94-97) % Chloride 111 H (98-107) mmol/L Carbon Dioxide 18 L (22-30) mmol/L Creatinine 0.48 L (0.52-1.04) mg/dL Glucose 113 H (74-99) mg/dL POC Glucose (mg/dL) 124 H (75-99) mg/dL Calcium 8.0 L (8.4-10.2) mg/dL Ferritin 1267.7 H (10.0-291.0) ng/mL Alkaline Phosphatase 133 H (38-126) U/L Lactate Dehydrogenase 828 H (313-618) U/L C-Reactive Protein 345.2 H (<10.0) mg/L Total Protein 5.5 L (6.3-8.2) g/dL Albumin 2.4 L (3.5-5.0) g/dL 07/22/19 Range/Units 11:49 WBC (3.8-10.6) k/uL RBC (3.80-5.40) m/uL Hgb (11.4-16.0) gm/dL Hct (34.0-46.0) % MCHC (31.0-37.0) g/dL Plt Count (150-450) k/uL Neutrophils # (1.3-7.7) k/uL Lymphocytes # (1.0-4.8) k/uL D-Dimer (<0.60) mg/L FEU ABG pCO2 (35-45) mmHg ABG pO2 (83-108) mmHg ABG HCO3 (21-25) mmol/L ABG O2 Saturation (94-97) % Chloride (98-107) mmol/L Carbon Dioxide (22-30) mmol/L Creatinine (0.52-1.04) mg/dL Glucose (74-99) mg/dL POC Glucose (mg/dL) 127 H (75-99) mg/dL Calcium (8.4-10.2) mg/dL Ferritin (10.0-291.0) ng/mL Alkaline Phosphatase (38-126) U/L Lactate Dehydrogenase (313-618) U/L C-Reactive Protein (<10.0) mg/L Total Protein (6.3-8.2) g/dL Albumin (3.5-5.0) g/dL Microbiology - Last 24 Hours (Table) 07/21/19 21:04 Gram Stain - Preliminary Sputum Sputum Culture - Preliminary 07/19/19 01:31 Blood Culture - Preliminary Blood No Growth after 72 hours Assessment and Plan Assessment: left lower lobe pneumonia with bilateral pneumonitis suspect secondary bacterial infection with COVID-19 positive infection, acute hypoxic respiratory failure, sepsis, ARDS -Vanco and cefepime for concerns of hospital-acquired pneumonia -Trend CRP, LDH, pro-calcitonin, CPK, and ferritin. -Influenza negative -Procalcitonin greatly positive -Daily CXR -Vent management per pulmonary, will attempt to wean off sedation - hydorxychloriquine, zinc -Gentle IV fluids Anemia, worsening -Suspect dilutional, MCV and MCH increasing Thrombocytosis -Suspect reactive -Follow CBC Costochondritis -Tylenol and Toradol for pain control Fibromyalgia -Supportive care DVT prophylaxis: Heparin Discussed with: nursing Anticipated discharge: Undetermined Anticipated discharge place: home A total of 35 minutes was spent on the care of this complex patient more than 50% of the time was spent in counseling and care coordination.
[2019-07-22 17:26] LABS: Glucose,Whole Blood 114 mg/dL (75-99)
[2019-07-22] MEDS: HYDROXYCHLOROQUINE ORAL SUSP 200 MG/8 ML ORAL.SYRG PO SCH (21:07)
[2019-07-23] MEDS: VANCOMYCIN 1,500 MG in SODIUM CHLORIDE 0.9% 250 ML IVPB SCH ×4 (00:09→23:31)
[2019-07-23] MEDS: PROPOFOL 1,000 MG in EMPTY BAG 1 BAG IV SCH ×7 (00:10→23:21)
[2019-07-23] MEDS: HEPARIN SODIUM,PORCINE 5,000 UNIT/ML 1 ML VIAL SQ SCH ×4 (00:10→23:30)
[2019-07-23 00:21] LABS: Glucose,Whole Blood 151 mg/dL (75-99)
[2019-07-23] MEDS: fentaNYL (PF) 1,000 MCG in SODIUM CHLORIDE 0.9% 80 ML IV SCH ×4 (04:38→21:23)
[2019-07-23 05:12] LABS: HCT 22.4 % (34.0-46.0); Hypochromasia Slight; MCH 29.6 pg (25.0-35.0); MCHC 31.3 g/dL (31.0-37.0); MCV 94.4 fL (80.0-100.0); Mean Platelet Volume 7.3; Platelet Count 506 k/uL (150-450); RBC 2.37 m/uL (3.80-5.40); RDW 13.6 % (11.5-15.5); WBC 20.4 k/uL (3.8-10.6)
[2019-07-23 05:26] LABS: African American GFR (CKD) >90 (>60 ml/min/1.73 sqM); Anion Gap 6 mmol/L; Blood Urea Nitrogen 14 mg/dL (7-17); Carbon Dioxide 20 mmol/L (22-30); Chloride 112 mmol/L (98-107); Glucose 136 mg/dL (74-99); LDH 707 U/L (313-618); Non-African American GFR(CKD) >90 (>60 ml/min/1.73 sqM); Potassium 4.1 mmol/L (3.5-5.1); Sodium 138 mmol/L (137-145)
[2019-07-23 05:41] LABS: C Reactive Protein 167.4 mg/L (<10.0)
--- NOTE | 2019-07-23 06:09 | PN ---
PROGRESS NOTE DATE OF SERVICE: 07/22/2019. REASON FOR FOLLOWUP: Acute COVID-19 pneumonia. INTERVAL HISTORY: The patient is currently afebrile. The patient is hemodynamically stable. The patient's FiO2 is currently stable at 40%. No significant purulent secretions through the ET or diarrhea has been reported by the nursing staff. PHYSICAL EXAMINATION: Blood pressure 134/65 with a pulse of 75, temperature 99. She is 96% on 40% FiO2. General description is a middle-aged female lying in bed in no distress. RESPIRATORY SYSTEM: Unlabored breathing. Decreased intensity of breath sounds. No wheeze. HEART: S1, S2. Regular rate and rhythm. ABDOMEN: Soft. No tenderness. LABS: Hemoglobin is 7.4, white count 22.1. BUN of 9, creatinine 0.48. Sputum culture is currently pending. Blood culture so far negative. DIAGNOSTIC IMPRESSION AND PLAN: Patient with acute respiratory failure, which is likely multifactorial in this patient who did have a component of acute COVID-19 pneumonia plus/minus bacterial infection. The patient's chest x-ray did show some improvement. Sputum culture is currently pending. Fever resolved. To continue with Plaquenil, cefepime, vancomycin and monitor clinical course closely. Continue with supportive care. MMODL / IJN: [id number] /
[2019-07-23] MEDS: INSULIN ASPART (NovoLOG) 100 UNIT/ML VIAL SQ SCH ×4 (06:17→23:30)
[2019-07-23 06:23] LABS: ABG Base Excess -2.7 mmol/L; ABG HCO3 21 mmol/L (21-25); ABG Oxygen Saturation 99.3 % (94-97); ABG PCO2 31 mmHg (35-45); ABG PH 7.45 (7.35-7.45); ABG PO2 138 mmHg (83-108); ABG TCO2 22 mmol/L (19-24)
[2019-07-23 06:25] LABS: Allen Test Performed? no
--- NOTE | 2019-07-23 08:07 | XR ---
EXAMINATION TYPE: XR chest 1V portable DATE OF EXAM: 07/23/2019 Comparison: 07/22/2019 Clinical History: 44 year-old female tube placement Findings: ET tube tip remains at the level of the medial clavicular heads. NG tube courses below the diaphragm. Left heart margin shows increasing obscuration with a slight increasing moderate left pleural effusi on with underlying capacity. Interstitial density persists on both sides. Impression: 1. Continued moderate left pleural effusion with adjacent atelectasis and/or consolidation, slightly worsened in the interval. 2. Background of mild interstitial density relatively similar.
[2019-07-23] MEDS ORDERED: FUROSEMIDE 10 MG/ML 4 ML VIAL IV STA (08:56)
[2019-07-23] MEDS: methylPREDNISolone SOD SUCCI 40 MG/ML 1 ML VIAL IV SCH ×2 (10:11→20:42)
[2019-07-23] MEDS: ZINC SULFATE 220 MG CAP PO SCH (10:11)
[2019-07-23] MEDS: CHLORHEXIDINE GLUCONATE 15 ML CUP MUCOUS MEM SCH ×2 (10:12→20:42)
[2019-07-23] MEDS: PANTOPRAZOLE 40 MG/10 ML VIAL IVP SCH (10:12)
[2019-07-23] MEDS: CEFEPIME 2 GM in SODIUM CHLORIDE 0.9% 100 ML IVPB SCH ×2 (10:13→20:42)
[2019-07-23] MEDS: HYDROXYCHLOROQUINE ORAL SUSP 200 MG/8 ML ORAL.SYRG PO SCH (10:16)
[2019-07-23 11:58] LABS: Glucose,Whole Blood 160 mg/dL (75-99)
[2019-07-23 12:35] LABS: Glucose,Whole Blood 157 mg/dL (75-99)
[2019-07-23] MEDS: CISATRACURIUM 200 MG in SODIUM CHLORIDE 0.9% 180 ML IV SCH (12:48)
--- NOTE | 2019-07-23 13:35 | P.PN ---
Subjective Progress Note Date: 07/23/19 Principal diagnosis: Acute hypoxic and hypercapnic respiratory failure secondary to acute covid 19 pneumonitis. Patient is a 44-year-old -[place] female past medical history of fibromyalgia who presented as a transfer from [facility] as part of the Covid 19 relief process. Patient had been having symptoms starting on July 05 and she was tested for Covid which came back on July 16 as positive. She initially been hospitalized for one day. She went back to the hospital on 07/18/2019 due to increased work of breathing. She was found to be hypoxic at 87% on room air, chest x-ray showed diffuse bilateral infiltrates, white blood cell count 16, platelets 511, lymphocytes 3.14, d-dimer 2.5 and BNP and troponins were negative. She was subsequently transferred here. She was started on hydroxychloroquine, doxycycline for possible atypical pneumonia and Rocephin for possible secondary bacterial infection. On her O2 requirements increased and pul was consulted they agreed with plan of care. On the morning of she was having increased work of breathing and her heart rate was up to 154. She was given 2 1L bolus with good result. WBC increasing and CXR with more consolidation her ABX were changed to zosyn and vanco. She had worsening respiratory distress. She was subsequently transferred to the ICU. She was intubated on the morning of 07/21/2019. She was started on a Nimbex, propofol, and fentanyl. She was requiring large amounts of sedation. Patient seen and examined at bedside. Currently sedated and paralyzed on vent. Discussed with nursing. Patient intubated this morning at approximately 9:30. Had central line and arterial line placed. On 07/22/2019 patient seen in follow-up in the intensive care unit. She is sedated, intubated, on mechanical ventilator, current vent settings are assist- control with a rate of 26, tidal vital 400, FiO2 40% and PEEP of 5, this morning his blood gases revealed pO2 175, pCO2 of 30, pH of 7.40, this was done on FiO2 of 40%. Today's blood work shows persistent leukocytosis, with white blood cell count of 22.1, hemoglobin is 7.4, lymphopenia with lymphocyte count is 0.7, neutrophilia with neutrophil count of 20.6, d-dimer slightly trending down, 2.04, sodium is 139, potassium is 4.2, chloride is 111, CO2 is 18, BUN of 9, creatinine 0.48. Ferritin remains elevated at 1267, CRP down slightly, at 345, pro-calcitonin was greater than 100. Influenza screen was negative. Blood cult ures were negative, sputum culture is pending. Fever pattern has improved, and last episode of fever was yesterday in the afternoon with a temp of 99.9F, afebrile overnight. Patient is currently on combination of cefepime, and vancomycin for antibiotic coverage, continues on IV Solu-Medrol, hydro xychloroquine. Today's chest x-ray shows some improvement in the right perihilar and infrahilar interstitial airspace disease, and persistent confluent left midlung and left basilar opacity with suspected trace to small left pleural effusion. Current IVs include 0.9 normal saline at a rate of 100 ML per hour, Diprivan is a 40 mics per kilo per minute, fentanyl at 1.5 mics per kilo per minute, Nimbex is at 2 mics per kilo per minute. No vasoactive drips. Reevaluated today on 07/23/19, patient remains in the intensive care unit, intubated and mechanically ventilated. Present vent settings are assist control rate of 26 tidal volume 400 FiO2 40% and PEEP is 12. Patient has a peak airway pressure of 35 plateau pressure of 27. Patient is still on fentanyl Nimbex and on propofol. Propofol is at 60 mcg/kg/m, fentanyl is at 2 mcg/kg/h, and Nimbex is at 1 mcg/kg. Her FiO2 was decreased down to 35%. And I plan to wean and possibly discontinue Nimbex today. CBC continues to show leukocytosis with WBC count of 20.4 hemoglobin is 7 and I plan to give the patient a unit of packed RBCs. Her ABG showed a pO2 of 138 pCO2 of 31 pH of 7.45. FiO2 was decreased down to 35%. Basic metabolic profile is normal renal profile is normal. LDH is down to 707 C-reactive protein is 167 pro-calcitonin is high, hence patient is being covered with antibiotics for superimposed bacterial infection. Chest x- ray continues to show significant left lower lobe consolidation, possibly associated with pleural effusion hence we will likely recommend ultrasound of the chest if does not improve in the next 24 hours. Objective - Vital Signs Vital signs: Vital Signs Temp 97.9 F 07/23/19 12:00 Pulse 71 07/23/19 12:00 Resp 26 H 07/23/19 12:00 BP 126/76 07/23/19 08:00 Pulse Ox 97 07/23/19 12:00 Intake & Output 07/22/19 07/23/19 07/23/19 18:59 06:59 18:59 Intake Total 1548.823 7943.566 1428.131 Output Total 836 750 3510 Balance 145.902 9943.566 -1136.869 Weight 84.1 kg 82.4 kg 82.4 kg Intake: IV 1150 870 868 .9 800 520 350 Cefepime 2 gm In Sodium 100 100 250 Chloride 0.9% 100 ml @ 200 mls/hr IVPB Q12HR [facility] Rx#:[id number] Vancomycin 1,500 mg In 250 250 250 Sodium Chloride 0.9% 250 ml @ 125 mls/hr IVPB Q8HR [facility] Rx#:[id number] pressure bag 18 Intake, IV Titration 291.287 620.566 330.131 Amount Cisatracurium 200 mg In 13.527 115.344 146.367 Sodium Chloride 0.9% 180 ml @ 1 MCG/KG/MIN 4.86 mls/hr IV .Q24H [facility] Rx#: [id number] Propofol 1,000 mg In 177.76 337.889 83.764 Empty Bag 1 bag @ Titrate IV .Q0M [facility] Rx#: [id number] Propofol 1,000 mg In 0 Empty Bag 1 bag @ Titrate IV .Q0M [facility] Rx#: [id number] fentaNYL (PF) 1,000 mcg 100.000 167.333 100 In Sodium Chloride 0.9% 80 ml @ 1 MCG/KG/HR 8.1 mls/hr IV .[id number] [facility] Rx #:[id number] Tube Feeding 60 320 230 Other 90 Output: Urine 247 588 2789 Other: Voiding Method Indwelling Catheter Indwelling Catheter Indwelling Catheter # Voids 1 ABP, PAP, CO, CI - Last Documented Arterial Blood Pressure 136/70 - Exam GENERAL EXAM: Sedated, intubated, 44-year-old -[place] female, intubated and on mechanical ventilation. HEENT: PERRLA, EOMI, no icterus, no neck masses, no JVD, no stridor, endotracheal tube and orogastric tube are intact. NECK: No masses, no JVD, no thyroid enlargement, no adenopathy. CHEST: No chest wall deformity. Symmetrical expansion. LUNGS: Equal air entry with no crackles, wheeze, rhonchi or dullness. CVS: Regular rate and rhythm, normal S1 and S2, no gallops, no murmurs, no rubs ABDOMEN: Soft, nontender. No hepatosplenomegaly, normal bowel sounds, no guarding or rigidity. EXTREMITIES: No clubbing, no edema, no cyanosis, 2+ pulses and upper and lower extremities. SPINE: No scoliosis or deformity SKIN: No rashes CENTRAL NERVOUS SYSTEM: Sedated, intubated. Cannot be assessed. Psychiatric: Cannot be assessed. - Labs CBC & Chem 7: 07/23/19 04:45 07/23/19 12:30 Labs: Abnormal Lab Results - Last 24 Hours (Table) 07/22/19 07/23/19 07/23/19 Range/Units 17:24 00:19 04:45 WBC (3.8-10.6) k/uL RBC (3.80-5.40) m/uL Hgb (11.4-16.0) gm/dL Hct (34.0-46.0) % Plt Count (150-450) k/uL D-Dimer (<0.60) mg/L FEU ABG pCO2 (35-45) mmHg ABG pO2 (83-108) mmHg ABG O2 Saturation (94-97) % Chloride (98-107) mmol/L Carbon Dioxide (22-30) mmol/L Creatinine (0.52-1.04) mg/dL Glucose (74-99) mg/dL POC Glucose (mg/dL) 114 H 151 H (75-99) mg/dL Calcium (8.4-10.2) mg/dL Lactate Dehydrogenase (313-618) U/L C-Reactive Protein (<10.0) mg/L Procalcitonin 13.43 H (0.02-0.09) ng/mL 07/23/19 07/23/19 07/23/19 Range/Units 04:45 04:45 04:45 WBC 20.4 H (3.8-10.6) k/uL RBC 2.37 L (3.80-5.40) m/uL Hgb 7.0 L (11.4-16.0) gm/dL Hct 22.4 L (34.0-46.0) % Plt Count 506 H (150-450) k/uL D-Dimer 2.19 H (<0.60) mg/L FEU ABG pCO2 (35-45) mmHg ABG pO2 (83-108) mmHg ABG O2 Saturation (94-97) % Chloride 112 H (98-107) mmol/L Carbon Dioxide 20 L (22-30) mmol/L Creatinine 0.48 L (0.52-1.04) mg/dL Glucose 136 H (74-99) mg/dL POC Glucose (mg/dL) (75-99) mg/dL Calcium 8.0 L (8.4-10.2) mg/dL Lactate Dehydrogenase 707 H (313-618) U/L C-Reactive Protein 167.4 H (<10.0) mg/L Procalcitonin (0.02-0.09) ng/mL 07/23/19 07/23/19 07/23/19 Range/Units 06:18 11:56 12:33 WBC (3.8-10.6) k/uL RBC (3.80-5.40) m/uL Hgb (11.4-16.0) gm/dL Hct (34.0-46.0) % Plt Count (150-450) k/uL D-Dimer (<0.60) mg/L FEU ABG pCO2 31 L (35-45) mmHg ABG pO2 138 H (83-108) mmHg ABG O2 Saturation 99.3 H (94-97) % Chloride (98-107) mmol/L Carbon Dioxide (22-30) mmol/L Creatinine (0.52-1.04) mg/dL Glucose (74-99) mg/dL POC Glucose (mg/dL) 160 H 157 H (75-99) mg/dL Calcium (8.4-10.2) mg/dL Lactate Dehydrogenase (313-618) U/L C-Reactive Protein (<10.0) mg/L Procalcitonin (0.02-0.09) ng/mL Microbiology - Last 24 Hours (Table) 07/19/19 01:31 Blood Culture - Preliminary Blood No Growth after 96 hours 07/21/19 21:04 Gram Stain - Preliminary Sputum Sputum Culture - Preliminary Assessment and Plan Assessment: Impression: Acute hypoxic and hypercapnic respiratory failure secondary to covid 19 pneumonitis, requiring intubation and mechanical ventilation. Acute covid 19 pneumonitis with elevated inflammatory markers including LDH C-reactive protein ferritin and d-dimer. Left lower lobe consolidation, possible left pleural effusion with elevated pro calcitonin level, possible superimposed bacterial infection, may consider ultrasound and thoracentesis if possible. Anemia with drop in her hemoglobin to 7, no evidence of active GI bleeding, we'll continue GI prophylaxis. History of fibromyalgia. History of tubal ligation and breast reduction. Recommendation: Continue ventilatory support. Hold narcotics today and sedatives address and assess mental status. Continue enteral feeding. Continue GI and DVT prophylaxis. Continue antibiotics. Empirically, sputum cultures are nondiagnostic so far. Daily interruption of sedation and assessment of mental status. Transfusions with 1 unit of packed RBCs. Prognosis is extremely poor and guarded, patient is critically ill. Critical care time is 35 minutes. Time with Patient: Greater than 30
[2019-07-23] MEDS ORDERED: Potassium Replacement Protocol 1 EACH MISC MISCELLANE PRN ×2 (14:03→18:51)
[2019-07-23] MEDS ORDERED: POTASSIUM BICARBONATE/CIT AC 20 MEQ TABLET.EFF NG-TUBE SCH ×2 (15:00→19:00)
--- NOTE | 2019-07-23 15:30 | P.PN ---
Subjective Progress Note Date: 07/23/19 Principal diagnosis: COVID 19 pneumonia Patient is a 44-year-old -[place] female past medical history of fibromyalgia who presented as a transfer from [facility] as part of the Covid 19 relief process. Patient had been having symptoms starting on July 05 and she was tested for Covid which came back on July 16 as positive. She initially been hospitalized for one day. She went back to the hospital on 07/18/2019 due to increased work of breathing. She was found to be hypoxic at 87% on room air, chest x-ray showed diffuse bilateral infiltrates, white blood cell count 16, platelets 511, lymphocytes 3.14, d-dimer 2.5 and BNP and troponins were negative. She was subsequently transferred here. She was started on hydroxychloroquine, doxycycline for possible atypical pneumonia and Rocephin for possible secondary bacterial infection. On her O2 requirements increased and pul was consulted they agreed with plan of care. On the morning of she was having increased work of breathing and her heart rate was up to 154. She was given 2 1L bolus with good result. WBC increasing and CXR with more consolidation her ABX were changed to zosyn and vanco. She had worsening respiratory distress. She was subsequently transferred to the ICU. She was in tubated on the morning of 07/21/2019. She was started on a Nimbex, propofol, and fentanyl. She was requiring large amounts of sedation. Patient was seen and examined. Currently sedated on ventilator. Discussed with nursing, no reported events. PEEP slightly decreased from 15-12. Given 40 mg of Lasix IV today. Attempted sedation weaning which was unsuccessful. Occult blood of gastric contents positive patient given 1 PRBC for anemia. Objective - Vital Signs Vital signs: Vital Signs Temp 98.0 F 07/23/19 14:56 Pulse 64 07/23/19 15:00 Resp 26 H 07/23/19 15:00 BP 159/83 07/23/19 14:56 Pulse Ox 99 07/23/19 15:00 Intake & Output 07/22/19 07/23/19 07/23/19 18:59 06:59 18:59 Intake Total 6947.748 4259.566 1678.818 Output Total 274 082 8117 Balance 806.590 6611.566 -1186.182 Weight 84.1 kg 82.4 kg 82.4 kg Intake: IV 1150 870 974 .9 800 520 450 Cefepime 2 gm In Sodium 100 100 250 Chloride 0.9% 100 ml @ 200 mls/hr IVPB Q12HR [facility] Rx#:[id number] Vancomycin 1,500 mg In 250 250 250 Sodium Chloride 0.9% 250 ml @ 125 mls/hr IVPB Q8HR [facility] Rx#:[id number] pressure bag 24 Intake, IV Titration 291.287 620.566 394.818 Amount Cisatracurium 200 mg In 13.527 115.344 146.367 Sodium Chloride 0.9% 180 ml @ 1 MCG/KG/MIN 4.86 mls/hr IV .Q24H [facility] Rx#: [id number] Propofol 1,000 mg In 177.76 337.889 148.451 Empty Bag 1 bag @ Titrate IV .Q0M [facility] Rx#: [id number] Propofol 1,000 mg In 0 Empty Bag 1 bag @ Titrate IV .Q0M [facility] Rx#: [id number] fentaNYL (PF) 1,000 mcg 100.000 167.333 100 In Sodium Chloride 0.9% 80 ml @ 1 MCG/KG/HR 8.1 mls/hr IV .[id number] [facility] Rx #:[id number] Tube Feeding 60 320 310 Blood Product 0 Rc As-1 Unit 0 [id number] Other 90 Output: Urine 890 308 2909 Other: Voiding Method Indwelling Catheter Indwelling Catheter Indwelling Catheter # Voids 1 ABP, PAP, CO, CI - Last Documented Arterial Blood Pressure 159/84 - Exam General: [non toxic], [intubated], [appears at stated age] Derm: [warm], [dry] Head: [atraumatic], [normocephalic], [symmetric] Eyes: [EOMI], [no lid lag], [anicteric sclera] Mouth: [no lip lesion], [mucus membranes moist] Cardiovascular: [S1S2 reg], [no murmur], [positive DP pulse bilateral], Lungs: [Coarse breath sounds bilateral], [no rhonchi, no rales] , [no accessory muscle use] Abdominal: [soft], [ nontender to palpation], [no guarding], [no appreciable organomegaly] Ext: [no gross muscle atrophy], [no edema], [no contractures] Neuro: [Unable to determine] Psych: [Unable to determine] - Labs CBC & Chem 7: 07/23/19 04:45 07/23/19 12:30 Labs: Abnormal Lab Results - Last 24 Hours (Table) 07/22/19 07/23/19 07/23/19 Range/Units 17:24 00:19 04:45 WBC (3.8-10.6) k/uL RBC (3.80-5.40) m/uL Hgb (11.4-16.0) gm/dL Hct (34.0-46.0) % Plt Count (150-450) k/uL D-Dimer (<0.60) mg/L FEU ABG pCO2 (35-45) mmHg ABG pO2 (83-108) mmHg ABG O2 Saturation (94-97) % Chloride (98-107) mmol/L Carbon Dioxide (22-30) mmol/L Creatinine (0.52-1.04) mg/dL Glucose (74-99) mg/dL POC Glucose (mg/dL) 114 H 151 H (75-99) mg/dL Calcium (8.4-10.2) mg/dL Lactate Dehydrogenase (313-618) U/L C-Reactive Protein (<10.0) mg/L Procalcitonin 13.43 H (0.02-0.09) ng/mL Crossmatch 07/23/19 07/23/19 07/23/19 Range/Units 04:45 04:45 04:45 WBC 20.4 H (3.8-10.6) k/uL RBC 2.37 L (3.80-5.40) m/uL Hgb 7.0 L (11.4-16.0) gm/dL Hct 22.4 L (34.0-46.0) % Plt Count 506 H (150-450) k/uL D-Dimer 2.19 H (<0.60) mg/L FEU ABG pCO2 (35-45) mmHg ABG pO2 (83-108) mmHg ABG O2 Saturation (94-97) % Chloride 112 H (98-107) mmol/L Carbon Dioxide 20 L (22-30) mmol/L Creatinine 0.48 L (0.52-1.04) mg/dL Glucose 136 H (74-99) mg/dL POC Glucose (mg/dL) (75-99) mg/dL Calcium 8.0 L (8.4-10.2) mg/dL Lactate Dehydrogenase 707 H (313-618) U/L C-Reactive Protein 167.4 H (<10.0) mg/L Procalcitonin (0.02-0.09) ng/mL Crossmatch 07/23/19 07/23/19 07/23/19 Range/Units 06:18 11:56 12:30 WBC (3.8-10.6) k/uL RBC (3.80-5.40) m/uL Hgb (11.4-16.0) gm/dL Hct (34.0-46.0) % Plt Count (150-450) k/uL D-Dimer (<0.60) mg/L FEU ABG pCO2 31 L (35-45) mmHg ABG pO2 138 H (83-108) mmHg ABG O2 Saturation 99.3 H (94-97) % Chloride (98-107) mmol/L Carbon Dioxide (22-30) mmol/L Creatinine (0.52-1.04) mg/dL Glucose (74-99) mg/dL POC Glucose (mg/dL) 160 H (75-99) mg/dL Calcium (8.4-10.2) mg/dL Lactate Dehydrogenase (313-618) U/L C-Reactive Protein (<10.0) mg/L Procalcitonin (0.02-0.09) ng/mL Crossmatch See Detail 07/23/19 Range/Units 12:33 WBC (3.8-10.6) k/uL RBC (3.80-5.40) m/uL Hgb (11.4-16.0) gm/dL Hct (34.0-46.0) % Plt Count (150-450) k/uL D-Dimer (<0.60) mg/L FEU ABG pCO2 (35-45) mmHg ABG pO2 (83-108) mmHg ABG O2 Saturation (94-97) % Chloride (98-107) mmol/L Carbon Dioxide (22-30) mmol/L Creatinine (0.52-1.04) mg/dL Glucose (74-99) mg/dL POC Glucose (mg/dL) 157 H (75-99) mg/dL Calcium (8.4-10.2) mg/dL Lactate Dehydrogenase (313-618) U/L C-Reactive Protein (<10.0) mg/L Procalcitonin (0.02-0.09) ng/mL Crossmatch Microbiology - Last 24 Hours (Table) 07/19/19 01:31 Blood Culture - Preliminary Blood No Growth after 96 hours 07/21/19 21:04 Gram Stain - Preliminary Sputum Sputum Culture - Preliminary Assessment and Plan Assessment: left lower lobe pneumonia with bilateral pneumonitis suspect secondary bacterial infection with COVID-19 positive infection, acute hypoxic respiratory failure, sepsis, ARDS -Vanco and cefepime for concerns of hospital-acquired pneumonia -Trend CRP, LDH, pro-calcitonin, CPK, and ferritin. (Pro-calcitonin, LDH and CRP all decreasing from yesterday) -Influenza negative -Procalcitonin greatly positive -Daily CXR -Vent management per pulmonary, attempt to wean off sedation when appropriate - hydorxychloriquine, zinc -Gentle IV fluids Anemia, worsening - Transfused 1 unit PRBC today -Suspect dilutional, MCV and MCH increasing Thrombocytosis -Suspect reactive -Follow CBC Costochondritis -Tylenol and Toradol for pain control Fibromyalgia -Supportive care DVT prophylaxis: Heparin Discussed with: nursing Anticipated discharge: Undetermined Anticipated discharge place: home A total of 35 minutes was spent on the care of this complex patient more than 50% of the time was spent in counseling and care coordination.
[2019-07-23] MEDS: SODIUM CHLORIDE 0.9% 1,000 ML IV SCH (16:52)
[2019-07-23 18:02] LABS: Glucose,Whole Blood 142 mg/dL (75-99)
[2019-07-23 18:43] LABS: HGB 8.4 gm/dL (11.4-16.0); Hypochromasia Slight; MCH 29.9 pg (25.0-35.0); MCHC 32.2 g/dL (31.0-37.0); MCV 92.9 fL (80.0-100.0); Mean Platelet Volume 7.4; Platelet Count 531 k/uL (150-450); Poikilocytosis Slight; WBC 19.6 k/uL (3.8-10.6)
--- NOTE | 2019-07-23 22:06 | PN ---
PROGRESS NOTE DATE OF SERVICE: 07/23/2019 REASON FOR FOLLOWUP: Acute COVID-19 pneumonia. INTERVAL HISTORY: The patient is currently afebrile. The patient is hemodynamically stable. FiO2 is currently stable at 35%. No other change has been reported by the nursing staff. PHYSICAL EXAMINATION: Blood pressure 154/81 with a pulse of 63, temperature of 98. She is 97% on 35% FiO2. General description is a middle-aged female intubated on the vent. RESPIRATORY SYSTEM: Unlabored breathing. No significant wheeze or crackle has been reported by the nursing staff concurrent with the assessment. Detailed physical exam was deferred. LABS: Hemoglobin 8.4, white count 19.6. Sputum culture is currently pending. DIAGNOSTIC IMPRESSION AND PLAN: Patient with acute respiratory failure which is likely multifactorial in this patient with confirmed acute COVID-19 pneumonia with concern for possible secondary bacterial infection. The patient is currently covered with cefepime and vancomycin in addition to the Plaquenil and Solu-Medrol; to continue. Cultures will be followed. Clinical course will be followed. Continue with supportive care. MMAYDENL / IGORN: [id number] /
[2019-07-23 23:30] LABS: Glucose,Whole Blood 162 mg/dL (75-99)
[2019-07-24] MEDS: fentaNYL (PF) 1,000 MCG in SODIUM CHLORIDE 0.9% 80 ML IV SCH ×5 (01:20→23:59)
[2019-07-24] MEDS: PROPOFOL 1,000 MG in EMPTY BAG 1 BAG IV SCH ×6 (01:20→18:27)
[2019-07-24] MEDS: CISATRACURIUM 200 MG in SODIUM CHLORIDE 0.9% 180 ML IV SCH ×2 (03:14→19:55)
[2019-07-24 04:31] LABS: HCT 26.5 % (34.0-46.0); HGB 8.3 gm/dL (11.4-16.0); Hypochromasia Slight; MCH 29.2 pg (25.0-35.0); MCHC 31.2 g/dL (31.0-37.0); MCV 93.7 fL (80.0-100.0); Mean Platelet Volume 7.5; Platelet Count 503 k/uL (150-450); Poikilocytosis Slight; RBC 2.82 m/uL (3.80-5.40); RDW 14.3 % (11.5-15.5); WBC 20.5 k/uL (3.8-10.6)
[2019-07-24 04:43] LABS: ALT 17 U/L (4-34); AST 26 U/L (14-36); African American GFR (CKD) >90 (>60 ml/min/1.73 sqM); Albumin 2.5 g/dL (3.5-5.0); Alkaline Phosphatase 116 U/L (38-126); Anion Gap 6 mmol/L; Blood Urea Nitrogen 14 mg/dL (7-17); C Reactive Protein 64.3 mg/L (<10.0); Carbon Dioxide 23 mmol/L (22-30); Chloride 112 mmol/L (98-107); Creatine Kinase 38 U/L (30-135); Glucose 158 mg/dL (74-99); LDH 783 U/L (313-618); Non-African American GFR(CKD) >90 (>60 ml/min/1.73 sqM); Potassium 3.9 mmol/L (3.5-5.1); Sodium 141 mmol/L (137-145); Total Bilirubin 0.6 mg/dL (0.2-1.3); Total Protein 5.7 g/dL (6.3-8.2)
[2019-07-24] MEDS ORDERED: POTASSIUM BICARBONATE/CIT AC 20 MEQ TABLET.EFF PO ONE (04:50)
[2019-07-24] MEDS: INSULIN ASPART (NovoLOG) 100 UNIT/ML VIAL SQ SCH ×4 (05:22→23:50)
[2019-07-24] MEDS ORDERED: VANCOMYCIN TROUGH DUE 1 EACH MISC MISCELLANE ONE (07:00)
[2019-07-24 07:07] LABS: ABG Base Excess -0.2 mmol/L; ABG HCO3 24 mmol/L (21-25); ABG PCO2 33 mmHg (35-45); ABG PH 7.46 (7.35-7.45); ABG PO2 95 mmHg (83-108); ABG TCO2 25 mmol/L (19-24)
[2019-07-24 07:13] LABS: Allen Test Performed? no
--- NOTE | 2019-07-24 07:24 | XR ---
EXAMINATION TYPE: XR chest 1V portable DATE OF EXAM: 07/24/2019 COMPARISON: 07/23/2019 HISTORY: SOB, Follow Up FINDINGS: Indwelling tubes and catheters are unchanged. Persistent dense opacification left lower lobe felt to reflect a combination of infiltrate, atelecta sis and pleural effusion. Left upper lobe as well as scattered right lung infiltrates persist. Overal l no change appreciated. Stable appearance of the cardio-mediastinal structures at this time. Pleural effusion unchanged. IMPRESSION: 1. Stable portable chest. Clinical correlation and follow up until resolution is recommended.
[2019-07-24] MEDS ORDERED: FUROSEMIDE 10 MG/ML 4 ML VIAL IV STA (08:51)
[2019-07-24] MEDS: PANTOPRAZOLE 40 MG/10 ML VIAL IVP SCH (09:18)
[2019-07-24] MEDS: methylPREDNISolone SOD SUCCI 40 MG/ML 1 ML VIAL IV SCH ×2 (09:18→19:55)
[2019-07-24] MEDS: HEPARIN SODIUM,PORCINE 5,000 UNIT/ML 1 ML VIAL SQ SCH ×3 (09:18→23:58)
[2019-07-24] MEDS: VANCOMYCIN 1,500 MG in SODIUM CHLORIDE 0.9% 250 ML IVPB SCH (09:19)
[2019-07-24] MEDS: CEFEPIME 2 GM in SODIUM CHLORIDE 0.9% 100 ML IVPB SCH ×2 (09:19→19:55)
[2019-07-24] MEDS: CHLORHEXIDINE GLUCONATE 15 ML CUP MUCOUS MEM SCH ×2 (09:19→19:55)
--- NOTE | 2019-07-24 10:06 | US ---
EXAMINATION TYPE: US chest DATE OF EXAM: 07/24/2019 COMPARISON: x-ray 07/24/2019 CLINICAL HISTORY: left pleural effusion. ICU patient on a vent TECHNIQUE: Targeted ultrasound of the posterior lower left hemithorax EXAM MEASUREMENTS: Left Pleural Effusion pocket size: 8.2 cm Left skin surface to fluid distance: 3.1 cm Left side marked for possible thoracentesis outside the dept. Fluid appear thickened with debris Pulmonologists are able to review the images in the patient?s EMR. IMPRESSIONS: As above
[2019-07-24 11:09] LABS: Ferritin 1325.7 ng/mL (10.0-291.0)
[2019-07-24 11:41] LABS: Glucose,Whole Blood 147 mg/dL (75-99)
[2019-07-24] MEDS: SODIUM CHLORIDE 0.9% 1,000 ML IV SCH (11:45)
[2019-07-24] MEDS: ZINC SULFATE 220 MG CAP PO SCH (11:45)
[2019-07-24 12:21] LABS: Glucose,Whole Blood 158 mg/dL (75-99)
--- NOTE | 2019-07-24 13:22 | P.PN ---
Subjective Progress Note Date: 07/24/19 Principal diagnosis: Acute hypoxic and hypercapnic respiratory failure secondary to acute covid 19 pneumonitis. Patient is a 44-year-old -Citizen Of [place] female past medical history of fibromyalgia who presented as a transfer from [facility] as part of the Covid 19 relief process. Patient had been having symptoms starting on July 05 and she was tested for Covid which came back on July 16 as positive. She initially been hospitalized for one day. She went back to the hospital on 07/18/2019 due to increased work of breathing. She was found to be hypoxic at 87% on room air, chest x-ray showed diffuse bilateral infiltrates, white blood cell count 16, platelets 511, lymphocytes 3.14, d-dimer 2.5 and BNP and troponins were negative. She was subsequently transferred here. She was started on hydroxychloroquine, doxycycline for possible atypical pneumonia and Rocephin for possible secondary bacterial infection. On her O2 requirements increased and pul was consulted they agreed with plan of care. On the morning of she was having increased work of breathing and her heart rate was up to 154. She was given 2 1L bolus with good result. WBC increasing and CXR with more consolidation her ABX were changed to zosyn and vanco. She had worsening respiratory distress. She was subsequently transferred to the ICU. She was intubated on the morning of 07/21/2019. She was started on a Nimbex, propofol, and fentanyl. She was requiring large amounts of sedation. Patient seen and examined at bedside. Currently sedated and paralyzed on vent. Discussed with nursing. Patient intubated this morning at approximately 9:30. Had central line and arterial line placed. On 07/22/2019 patient seen in follow-up in the intensive care unit. She is sedated, intubated, on mechanical ventilator, current vent settings are assist- control with a rate of 26, tidal vital 400, FiO2 40% and PEEP of 5, this morning his blood gases revealed pO2 175, pCO2 of 30, pH of 7.40, this was done on FiO2 of 40%. Today's blood work shows persistent leukocytosis, with white blood cell count of 22.1, hemoglobin is 7.4, lymphopenia with lymphocyte count is 0.7, neutrophilia with neutrophil count of 20.6, d-dimer slightly trending down, 2.04, sodium is 139, potassium is 4.2, chloride is 111, CO2 is 18, BUN of 9, creatinine 0.48. Ferritin remains elevated at 1267, CRP down slightly, at 345, pro-calcitonin was greater than 100. Influenza screen was negative. Blood cult ures were negative, sputum culture is pending. Fever pattern has improved, and last episode of fever was yesterday in the afternoon with a temp of 99.9F, afebrile overnight. Patient is currently on combination of cefepime, and vancomycin for antibiotic coverage, continues on IV Solu-Medrol, hydro xychloroquine. Today's chest x-ray shows some improvement in the right perihilar and infrahilar interstitial airspace disease, and persistent confluent left midlung and left basilar opacity with suspected trace to small left pleural effusion. Current IVs include 0.9 normal saline at a rate of 100 ML per hour, Diprivan is a 40 mics per kilo per minute, fentanyl at 1.5 mics per kilo per minute, Nimbex is at 2 mics per kilo per minute. No vasoactive drips. Reevaluated today on 07/23/19, patient remains in the intensive care unit, intubated and mechanically ventilated. Present vent settings are assist control rate of 26 tidal volume 400 FiO2 40% and PEEP is 12. Patient has a peak airway pressure of 35 plateau pressure of 27. Patient is still on fentanyl Nimbex and on propofol. Propofol is at 60 mcg/kg/m, fentanyl is at 2 mcg/kg/h, and Nimbex is at 1 mcg/kg. Her FiO2 was decreased down to 35%. And I plan to wean and possibly discontinue Nimbex today. CBC continues to show leukocytosis with WBC count of 20.4 hemoglobin is 7 and I plan to give the patient a unit of packed RBCs. Her ABG showed a pO2 of 138 pCO2 of 31 pH of 7.45. FiO2 was decreased down to 35%. Basic metabolic profile is normal renal profile is normal. LDH is down to 707 C-reactive protein is 167 pro-calcitonin is high, hence patient is being covered with antibiotics for superimposed bacterial infection. Chest x- ray continues to show significant left lower lobe consolidation, possibly associated with pleural effusion hence we will likely recommend ultrasound of the chest if does not improve in the next 24 hours. Reevaluated today on 07/24/19, patient remains in the ICU, intubated and mechanically ventilated. Ventilator settings are assist control of 26 tidal volume 400 FiO2 is 35% PEEP is at 12. Decreased down to 8. Her markers are basically about the same. Chest x-ray continues to show dense consolidation in the left lower lobe, possible pleural effusion. However ultrasound of the chest did not show the effusion isn't large enough or safe the Pap at this point. Hence I recommended no thoracentesis at this point. ABG today showed a pO2 of 95 pCO2 of 33 pH of 7.46. And this was on 35% FiO2 and PEEP of 12. WBC count is 20.5 hemoglobin is 8.3 electrolytes in the upper profile are normal. Ferritin remains elevated at 1325 LDH is 783, improving, C-reactive protein is 64.3. Pro-calcitonin remains high at 8.04. Patient remains on cefepime and vancomycin. Today the patient remains on Nimbex fentanyl and propofol at 60 mcg/kg/m, Nimbex is at 2 mcg/kg/m, and fentanyl is 2 mcg/kg/h. Remains on IV fluid of 0.9 normal saline S3 0 mL per hour. The ventilator settings changes today included increase FiO2 to 40% and decrease PEEP to 8. Planning to hold Nimbex, however the patient did not tolerate being off Nimbex, had to be placed back on Nimbex because of extreme agitation and tachypnea and could not be properly ventilated off Nimbex Objective - Vital Signs Vital signs: Vital Signs Temp 97.9 F 07/24/19 08:00 Pulse 70 07/24/19 12:00 Resp 26 H 07/24/19 12:00 BP 161/87 07/23/19 15:55 Pulse Ox 97 07/24/19 12:00 Intake & Output 07/23/19 07/24/19 07/24/19 18:59 06:59 18:59 Intake Total 2416.497 2444.830 1166.342 Output Total 3465 1200 2025 Balance -2350.706 9028.830 -858.658 Weight 82.4 kg 88.2 kg 88.2 kg Intake: IV 1133 923 618 .9 600 540 250 Cefepime 2 gm In Sodium 250 100 100 Chloride 0.9% 100 ml @ 200 mls/hr IVPB Q12HR [facility] Rx#:[id number] Vancomycin 1,500 mg In 250 250 250 Sodium Chloride 0.9% 250 ml @ 125 mls/hr IVPB Q8HR [facility] Rx#:[id number] pressure bag 33 33 18 Intake, IV Titration 532.497 870.830 263.342 Amount Cisatracurium 200 mg In 146.367 197.802 32.562 Sodium Chloride 0.9% 180 ml @ 1 MCG/KG/MIN 4.86 mls/hr IV .Q24H [facility] Rx#: [id number] Propofol 1,000 mg In 200.000 410.318 100.000 Empty Bag 1 bag @ Titrate IV .Q0M [facility] Rx#: [id number] Propofol 1,000 mg In 0 Empty Bag 1 bag @ Titrate IV .Q0M [facility] Rx#: [id number] fentaNYL (PF) 1,000 mcg 186.13 262.710 130.780 In Sodium Chloride 0.9% 80 ml @ 1 MCG/KG/HR 8.1 mls/hr IV .[id number] [facility] Rx #:[id number] Tube Feeding 441 561 255 Blood Product 310 Rc As-1 Unit 310 [id number] Other 90 30 Output: Urine 3465 1200 2025 Other: Voiding Method Indwelling Catheter Indwelling Catheter # Voids 1 ABP, PAP, CO, CI - Last Documented Arterial Blood Pressure 153/75 - Exam GENERAL EXAM: Sedated, intubated, 44-year-old -Citizen Of [place] female, intubated and on mechanical ventilation. HEENT: PERRLA, EOMI, no icterus, no neck masses, no JVD, no stridor, endotracheal tube and orogastric tube are intact. NECK: No masses, no JVD, no thyroid enlargement, no adenopathy. CHEST: No chest wall deformity. Symmetrical expansion. LUNGS: Equal air entry with no crackles, wheeze, rhonchi or dullness. CVS: Regular rate and rhythm, normal S1 and S2, no gallops, no murmurs, no rubs ABDOMEN: Soft, nontender. No hepatosplenomegaly, normal bowel sounds, no guarding or rigidity. EXTREMITIES: No clubbing, no edema, no cyanosis, 2+ pulses and upper and lower extremities. SPINE: No scoliosis or deformity SKIN: No rashes CENTRAL NERVOUS SYSTEM: Sedated, intubated. Cannot be assessed. Psychiatric: Cannot be assessed. - Labs CBC & Chem 7: 07/24/19 04:15 07/24/19 04:15 Labs: Abnormal Lab Results - Last 24 Hours (Table) 07/23/19 07/23/19 07/23/19 Range/Units 12:30 17:59 18:25 WBC 19.6 H (3.8-10.6) k/uL RBC 2.80 L (3.80-5.40) m/uL Hgb 8.4 L (11.4-16.0) gm/dL Hct 26.0 L (34.0-46.0) % Plt Count 531 H (150-450) k/uL D-Dimer (<0.60) mg/L FEU ABG pH (7.35-7.45) ABG pCO2 (35-45) mmHg ABG Total CO2 (19-24) mmol/L ABG O2 Saturation (94-97) % Chloride (98-107) mmol/L Creatinine (0.52-1.04) mg/dL Glucose (74-99) mg/dL POC Glucose (mg/dL) 142 H (75-99) mg/dL Calcium (8.4-10.2) mg/dL Ferritin (10.0-291.0) ng/mL Lactate Dehydrogenase (313-618) U/L C-Reactive Protein (<10.0) mg/L Total Protein (6.3-8.2) g/dL Albumin (3.5-5.0) g/dL Procalcitonin (0.02-0.09) ng/mL Crossmatch See Detail 07/23/19 07/24/19 07/24/19 Range/Units 23:28 04:15 04:15 WBC 20.5 H (3.8-10.6) k/uL RBC 2.82 L (3.80-5.40) m/uL Hgb 8.3 L (11.4-16.0) gm/dL Hct 26.5 L (34.0-46.0) % Plt Count 503 H (150-450) k/uL D-Dimer (<0.60) mg/L FEU ABG pH (7.35-7.45) ABG pCO2 (35-45) mmHg ABG Total CO2 (19-24) mmol/L ABG O2 Saturation (94-97) % Chloride (98-107) mmol/L Creatinine (0.52-1.04) mg/dL Glucose (74-99) mg/dL POC Glucose (mg/dL) 162 H (75-99) mg/dL Calcium (8.4-10.2) mg/dL Ferritin (10.0-291.0) ng/mL Lactate Dehydrogenase (313-618) U/L C-Reactive Protein (<10.0) mg/L Total Protein (6.3-8.2) g/dL Albumin (3.5-5.0) g/dL Procalcitonin 8.04 H (0.02-0.09) ng/mL Crossmatch 07/24/19 07/24/19 07/24/19 Range/Units 04:15 04:15 07:05 WBC (3.8-10.6) k/uL RBC (3.80-5.40) m/uL Hgb (11.4-16.0) gm/dL Hct (34.0-46.0) % Plt Count (150-450) k/uL D-Dimer 2.25 H (<0.60) mg/L FEU ABG pH 7.46 H (7.35-7.45) ABG pCO2 33 L (35-45) mmHg ABG Total CO2 25 H (19-24) mmol/L ABG O2 Saturation 98.0 H (94-97) % Chloride 112 H (98-107) mmol/L Creatinine 0.45 L (0.52-1.04) mg/dL Glucose 158 H (74-99) mg/dL POC Glucose (mg/dL) (75-99) mg/dL Calcium 8.0 L (8.4-10.2) mg/dL Ferritin 1325.7 H (10.0-291.0) ng/mL Lactate Dehydrogenase 783 H (313-618) U/L C-Reactive Protein 64.3 H (<10.0) mg/L Total Protein 5.7 L (6.3-8.2) g/dL Albumin 2.5 L (3.5-5.0) g/dL Procalcitonin (0.02-0.09) ng/mL Crossmatch 07/24/19 07/24/19 Range/Units 11:39 12:19 WBC (3.8-10.6) k/uL RBC (3.80-5.40) m/uL Hgb (11.4-16.0) gm/dL Hct (34.0-46.0) % Plt Count (150-450) k/uL D-Dimer (<0.60) mg/L FEU ABG pH (7.35-7.45) ABG pCO2 (35-45) mmHg ABG Total CO2 (19-24) mmol/L ABG O2 Saturation (94-97) % Chloride (98-107) mmol/L Creatinine (0.52-1.04) mg/dL Glucose (74-99) mg/dL POC Glucose (mg/dL) 147 H 158 H (75-99) mg/dL Calcium (8.4-10.2) mg/dL Ferritin (10.0-291.0) ng/mL Lactate Dehydrogenase (313-618) U/L C-Reactive Protein (<10.0) mg/L Total Protein (6.3-8.2) g/dL Albumin (3.5-5.0) g/dL Procalcitonin (0.02-0.09) ng/mL Crossmatch Microbiology - Last 24 Hours (Table) 07/21/19 21:04 Gram Stain - Final Sputum Sputum Culture - Final 07/19/19 01:31 Blood Culture - Preliminary Blood No Growth after 120 hours Assessment and Plan Assessment: Impression: Acute hypoxic and hypercapnic respiratory failure secondary to covid 19 pneumonitis, requiring intubation and mechanical ventilation. Acute covid 19 pneumonitis with elevated inflammatory markers including LDH C- reactive protein ferritin and d-dimer. Left lower lobe consolidation, possible left pleural effusion with elevated pro calcitonin level, possible superimposed bacterial infection, ultrasound of the chest did not show significant enlargement fluid to warrant safe thoracentesis Anemia with drop in her hemoglobin to 7, no evidence of active GI bleeding, we'll continue GI prophylaxis. Hemoglobin today is 8.3. History of fibromyalgia. History of tubal ligation and breast reduction. Recommendation: Continue ventilatory support. FiO2 is now at 40%, PEEP is at 8 instead of 12 remains on assist control rate of 26 on tidal volume is 400. Attempted taking the patient of Nimbex, and kept her on fentanyl and propofol, but that did not seem to work. Mental status was noted to be appropriate off Nimbex but clearly the patient could not be weaned off Nimbex mostly because of extreme agitation and tachypnea. Continue enteral feeding. Continue GI and DVT prophylaxis. Continue antibiotics. Daily interruption of sedation and assessment of mental status. Monitor CBC daily basis. Prognosis is extremely poor and guarded, patient is critically ill. Critical care time is 36 minutes. Time with Patient: Greater than 30
[2019-07-24] MEDS ORDERED: VANCOMYCIN 1,750 MG in SODIUM CHLORIDE 0.9% 500 ML 500 ML IVPB SCH (16:00)
--- NOTE | 2019-07-24 16:16 | P.PN ---
Subjective Progress Note Date: 07/24/19 Principal diagnosis: COVID 19 pneumonia Patient is a 44-year-old -[place] female past medical history of fibromyalgia who presented as a transfer from [facility] as part of the Covid 19 relief process. Patient had been having symptoms starting on July 05 and she was tested for Covid which came back on July 16 as positive. She initially been hospitalized for one day. She went back to the hospital on 07/18/2019 due to increased work of breathing. She was found to be hypoxic at 87% on room air, chest x-ray showed diffuse bilateral infiltrates, white blood cell count 16, platelets 511, lymphocytes 3.14, d-dimer 2.5 and BNP and troponins were negative. She was subsequently transferred here. She was started on hydroxychloroquine, doxycycline for possible atypical pneumonia and Rocephin for possible secondary bacterial infection. On her O2 requirements increased and pul was consulted they agreed with plan of care. On the morning of she was having increased work of breathing and her heart rate was up to 154. She was given 2 1L bolus with good result. WBC increasing and CXR with more consolidation her ABX were changed to zosyn and vanco. She had worsening respiratory distress. She was subsequently transferred to the ICU. She was in tubated on the morning of 07/21/2019. She was started on a Nimbex, propofol, and fentanyl. She was requiring large amounts of sedation. Patient was seen and examined. Currently sedated on ventilator. Discussed with nursing, no reported events. PEEP decreased to 8. Given 40 mg of Lasix IV today. Attempted sedation weaning which was unsuccessful due to agitation but apparently patient was following commands. Hemoglobin improved after one PRBC from 7-8.4. Chest x-ray is stable. Chest ultrasound shows 8.2 cm pocket size effusion on the left side. Plans for possible thoracentesis by pulmonology. Objective - Vital Signs Vital signs: Vital Signs Temp 97.9 F 07/24/19 08:00 Pulse 76 07/24/19 15:00 Resp 26 H 07/24/19 15:00 BP 161/87 07/23/19 15:55 Pulse Ox 98 07/24/19 15:00 Intake & Output 07/23/19 07/24/19 07/24/19 18:59 06:59 18:59 Intake Total 2416.497 2444.830 1503.562 Output Total 3465 1200 2375 Balance -8472.435 7165.830 -871.438 Weight 82.4 kg 88.2 kg 88.2 kg Intake: IV 1133 923 724 .9 600 540 350 Cefepime 2 gm In Sodium 250 100 100 Chloride 0.9% 100 ml @ 200 mls/hr IVPB Q12HR [facility] Rx#:[id number] Vancomycin 1,500 mg In 250 250 250 Sodium Chloride 0.9% 250 ml @ 125 mls/hr IVPB Q8HR [facility] Rx#:[id number] pressure bag 33 33 24 Intake, IV Titration 532.497 870.830 432.562 Amount Cisatracurium 200 mg In 146.367 197.802 32.562 Sodium Chloride 0.9% 180 ml @ 1 MCG/KG/MIN 4.86 mls/hr IV .Q24H [facility] Rx#: [id number] Propofol 1,000 mg In 200.000 410.318 200.000 Empty Bag 1 bag @ Titrate IV .Q0M [facility] Rx#: [id number] Propofol 1,000 mg In 0 Empty Bag 1 bag @ Titrate IV .Q0M [facility] Rx#: [id number] fentaNYL (PF) 1,000 mcg 186.13 262.710 200.000 In Sodium Chloride 0.9% 80 ml @ 1 MCG/KG/HR 8.1 mls/hr IV .[id number] [facility] Rx #:[id number] Tube Feeding 441 561 317 Blood Product 310 Rc As-1 Unit 310 [id number] Other 90 30 Output: Urine 3465 1200 2375 Other: Voiding Method Indwelling Catheter Indwelling Catheter Indwelling Catheter # Voids 1 ABP, PAP, CO, CI - Last Documented Arterial Blood Pressure 151/77 - Exam General: [non toxic], [intubated], [appears at stated age] Derm: [warm], [dry] Head: [atraumatic], [normocephalic], [symmetric] Eyes: [EOMI], [no lid lag], [anicteric sclera] Mouth: [no lip lesion], [mucus membranes moist] Cardiovascular: [S1S2 reg], [no murmur], [positive DP pulse bilateral], Lungs: [Coarse breath sounds bilateral], [no rhonchi, no rales] , [no accessory muscle use] Abdominal: [soft], [ nontender to palpation], [no guarding], [no appreciable organomegaly] Ext: [no gross muscle atrophy], [no edema], [no contractures] Neuro: [Unable to determine] Psych: [Unable to determine] - Labs CBC & Chem 7: 07/24/19 04:15 07/24/19 04:15 Labs: Abnormal Lab Results - Last 24 Hours (Table) 07/23/19 07/23/19 07/23/19 Range/Units 17:59 18:25 23:28 WBC 19.6 H (3.8-10.6) k/uL RBC 2.80 L (3.80-5.40) m/uL Hgb 8.4 L (11.4-16.0) gm/dL Hct 26.0 L (34.0-46.0) % Plt Count 531 H (150-450) k/uL D-Dimer (<0.60) mg/L FEU ABG pH (7.35-7.45) ABG pCO2 (35-45) mmHg ABG Total CO2 (19-24) mmol/L ABG O2 Saturation (94-97) % Chloride (98-107) mmol/L Creatinine (0.52-1.04) mg/dL Glucose (74-99) mg/dL POC Glucose (mg/dL) 142 H 162 H (75-99) mg/dL Calcium (8.4-10.2) mg/dL Ferritin (10.0-291.0) ng/mL Lactate Dehydrogenase (313-618) U/L C-Reactive Protein (<10.0) mg/L Total Protein (6.3-8.2) g/dL Albumin (3.5-5.0) g/dL Procalcitonin (0.02-0.09) ng/mL 07/24/19 07/24/19 07/24/19 Range/Units 04:15 04:15 04:15 WBC 20.5 H (3.8-10.6) k/uL RBC 2.82 L (3.80-5.40) m/uL Hgb 8.3 L (11.4-16.0) gm/dL Hct 26.5 L (34.0-46.0) % Plt Count 503 H (150-450) k/uL D-Dimer 2.25 H (<0.60) mg/L FEU ABG pH (7.35-7.45) ABG pCO2 (35-45) mmHg ABG Total CO2 (19-24) mmol/L ABG O2 Saturation (94-97) % Chloride (98-107) mmol/L Creatinine (0.52-1.04) mg/dL Glucose (74-99) mg/dL POC Glucose (mg/dL) (75-99) mg/dL Calcium (8.4-10.2) mg/dL Ferritin (10.0-291.0) ng/mL Lactate Dehydrogenase (313-618) U/L C-Reactive Protein (<10.0) mg/L Total Protein (6.3-8.2) g/dL Albumin (3.5-5.0) g/dL Procalcitonin 8.04 H (0.02-0.09) ng/mL 07/24/19 07/24/19 07/24/19 Range/Units 04:15 07:05 11:39 WBC (3.8-10.6) k/uL RBC (3.80-5.40) m/uL Hgb (11.4-16.0) gm/dL Hct (34.0-46.0) % Plt Count (150-450) k/uL D-Dimer (<0.60) mg/L FEU ABG pH 7.46 H (7.35-7.45) ABG pCO2 33 L (35-45) mmHg ABG Total CO2 25 H (19-24) mmol/L ABG O2 Saturation 98.0 H (94-97) % Chloride 112 H (98-107) mmol/L Creatinine 0.45 L (0.52-1.04) mg/dL Glucose 158 H (74-99) mg/dL POC Glucose (mg/dL) 147 H (75-99) mg/dL Calcium 8.0 L (8.4-10.2) mg/dL Ferritin 1325.7 H (10.0-291.0) ng/mL Lactate Dehydrogenase 783 H (313-618) U/L C-Reactive Protein 64.3 H (<10.0) mg/L Total Protein 5.7 L (6.3-8.2) g/dL Albumin 2.5 L (3.5-5.0) g/dL Procalcitonin (0.02-0.09) ng/mL 07/24/19 Range/Units 12:19 WBC (3.8-10.6) k/uL RBC (3.80-5.40) m/uL Hgb (11.4-16.0) gm/dL Hct (34.0-46.0) % Plt Count (150-450) k/uL D-Dimer (<0.60) mg/L FEU ABG pH (7.35-7.45) ABG pCO2 (35-45) mmHg ABG Total CO2 (19-24) mmol/L ABG O2 Saturation (94-97) % Chloride (98-107) mmol/L Creatinine (0.52-1.04) mg/dL Glucose (74-99) mg/dL POC Glucose (mg/dL) 158 H (75-99) mg/dL Calcium (8.4-10.2) mg/dL Ferritin (10.0-291.0) ng/mL Lactate Dehydrogenase (313-618) U/L C-Reactive Protein (<10.0) mg/L Total Protein (6.3-8.2) g/dL Albumin (3.5-5.0) g/dL Procalcitonin (0.02-0.09) ng/mL Microbiology - Last 24 Hours (Table) 07/21/19 21:04 Gram Stain - Final Sputum Sputum Culture - Final 07/19/19 01:31 Blood Culture - Preliminary Blood No Growth after 120 hours Assessment and Plan Assessment: left lower lobe pneumonia with bilateral pneumonitis suspect secondary bacterial infection with COVID-19 positive infection, acute hypoxic respiratory failure, sepsis, ARDS -Vanco and cefepime for concerns of hospital-acquired pneumonia -Trend CRP, LDH, pro-calcitonin, CPK, and ferritin. (Pro-calcitonin, CRP decreasing from yesterday) -Influenza negative -Procalcitonin greatly positive -Daily CXR -Vent management per pulmonary, attempt to wean off sedation when appropriate with plans for possible thoracentesis - hydorxychloriquine, zinc -Gentle IV fluids Anemia, worsening -Hemoglobin stable after transfusing 1 unit PRBC -Suspect dilutional, MCV and MCH increasing Thrombocytosis -Suspect reactive -Follow CBC Costochondritis -Tylenol and Toradol for pain control Fibromyalgia -Supportive care DVT prophylaxis: Heparin Discussed with: nursing Anticipated discharge: Undetermined Anticipated discharge place: home A total of 35 minutes was spent on the care of this complex patient more than 50% of the time was spent in counseling and care coordination.
--- NOTE | 2019-07-24 17:21 | PN ---
PROGRESS NOTE DATE OF SERVICE: 07/24/2019 REASON FOR FOLLOWUP: Acute COVID-19 pneumonia. INTERVAL HISTORY: The patient is currently afebrile. The patient is hemodynamically stable, not requiring a pressor support. FiO2 is currently stable. No vomiting or diarrhea has been reported. PHYSICAL EXAMINATION: Blood pressure is 151/77 with a pulse of 73, temperature 98, she is 98% on 40% FiO2. General description is a young female, lying in bed in no distress. RESPIRATORY SYSTEM: Unlabored breathing, decreased distant breath sounds. No wheeze. HEART: S1, S2. Regular rate and rhythm. ABDOMEN: Soft, nontender. LABS: White count 20,000, BUN of 14, creatinine 0.45. LDH is slightly up to 783. Sputum has been negative. DIAGNOSTIC IMPRESSION AND PLAN: Patient with acute respiratory failure which is likely multifactorial in this patient, did have acute COVID-19 pneumonia. Patient has a completed her 5-day course of Plaquenil. Currently on Zinc and Solu-Medrol. He is off on cefepime and vanco with concern for possible secondary bacterial pneumonia in the sputum has been negative for any resistant gram-positive we will go ahead and discontinue vancomycin to decrease risk of nephrotoxicity and monitor her clinical course closely. MMODL / IJN: [id number] /
[2019-07-24 18:15] LABS: Glucose,Whole Blood 120 mg/dL (75-99)
[2019-07-24] MEDS: CLEVIDIPINE BUTYRATE 25 MG in EMPTY BAG 1 BAG IV SCH (20:53)
[2019-07-24 23:48] LABS: Glucose,Whole Blood 122 mg/dL (75-99)
[2019-07-25] MEDS: PROPOFOL 1,000 MG in EMPTY BAG 1 BAG IV SCH ×5 (04:58→20:40)
[2019-07-25] MEDS: SODIUM CHLORIDE 0.9% 1,000 ML IV SCH (04:58)
[2019-07-25] MEDS: fentaNYL (PF) 1,000 MCG in SODIUM CHLORIDE 0.9% 80 ML IV SCH ×4 (04:59→22:38)
[2019-07-25 05:34] LABS: HCT 28.5 % (34.0-46.0); HGB 9.2 gm/dL (11.4-16.0); Hypochromasia Slight; MCH 29.6 pg (25.0-35.0); MCHC 32.2 g/dL (31.0-37.0); Mean Platelet Volume 7.1; Platelet Count 574 k/uL (150-450); RDW 14.4 % (11.5-15.5); WBC 21.7 k/uL (3.8-10.6)
[2019-07-25 05:45] LABS: ALT 37 U/L (4-34); AST 54 U/L (14-36); African American GFR (CKD) >90 (>60 ml/min/1.73 sqM); Albumin 2.7 g/dL (3.5-5.0); Alkaline Phosphatase 117 U/L (38-126); Anion Gap 8 mmol/L; Blood Urea Nitrogen 12 mg/dL (7-17); C Reactive Protein 45.6 mg/L (<10.0); Calcium 8.2 mg/dL (8.4-10.2); Carbon Dioxide 27 mmol/L (22-30); Chloride 104 mmol/L (98-107); Glucose 114 mg/dL (74-99); LDH 987 U/L (313-618); Non-African American GFR(CKD) >90 (>60 ml/min/1.73 sqM); Potassium 3.8 mmol/L (3.5-5.1); Sodium 139 mmol/L (137-145); Total Bilirubin 0.5 mg/dL (0.2-1.3)
[2019-07-25 05:59] LABS: Creatine Kinase 43 U/L (30-135)
[2019-07-25] MEDS ORDERED: POTASSIUM BICARBONATE/CIT AC 20 MEQ TABLET.EFF NG-TUBE SCH (06:00)
[2019-07-25] MEDS: INSULIN ASPART (NovoLOG) 100 UNIT/ML VIAL SQ SCH ×4 (06:14→23:45)
[2019-07-25 07:50] LABS: ABG Base Excess 5.6 mmol/L; ABG HCO3 28 mmol/L (21-25); ABG Oxygen Saturation 95.5 % (94-97); ABG PCO2 33 mmHg (35-45); ABG PH 7.54 (7.35-7.45); ABG PO2 70 mmHg (83-108); ABG TCO2 29 mmol/L (19-24)
[2019-07-25 07:51] LABS: Allen Test Performed? no
--- NOTE | 2019-07-25 08:04 | XR ---
EXAMINATION TYPE: XR chest 1V portable DATE OF EXAM: 07/25/2019 COMPARISON: 07/24/2019 INDICATION: Tube placement TECHNIQUE: Single frontal view of the chest is obtained. FINDINGS: The heart size is normal. The pulmonary vasculature is normal. Mild streak opacities in the right lower lobe. Correlate for atelectasis. There is some diffuse incre ased lung markings present bilaterally. Moderate left pleural effusion appears to be present. This ma y be slightly improved over the interval. Endotracheal tube tip is above the guillermo. Nasogastric tube transverses the thorax. IMPRESSION: 1. Bibasilar infiltrates greater on the left. 2. Slight improvement of a left lower lobe effusion
[2019-07-25] MEDS: CEFEPIME 2 GM in SODIUM CHLORIDE 0.9% 100 ML IVPB SCH ×2 (08:54→20:41)
[2019-07-25] MEDS: CHLORHEXIDINE GLUCONATE 15 ML CUP MUCOUS MEM SCH ×2 (08:54→20:42)
[2019-07-25] MEDS: ZINC SULFATE 220 MG CAP PO SCH (08:54)
[2019-07-25] MEDS: PANTOPRAZOLE 40 MG/10 ML VIAL IVP SCH (08:54)
[2019-07-25] MEDS: HEPARIN SODIUM,PORCINE 5,000 UNIT/ML 1 ML VIAL SQ SCH ×2 (08:54→16:45)
[2019-07-25] MEDS: methylPREDNISolone SOD SUCCI 40 MG/ML 1 ML VIAL IV SCH ×2 (08:54→20:42)
[2019-07-25 11:46] LABS: Glucose,Whole Blood 127 mg/dL (75-99)
--- NOTE | 2019-07-25 13:14 | P.PN ---
Subjective Progress Note Date: 07/25/19 Principal diagnosis: Acute hypoxic and hypercapnic respiratory failure secondary to acute covid 19 pneumonitis. Patient is a 44-year-old -[place] female past medical history of fibromyalgia who presented as a transfer from [facility] as part of the Covid 19 relief process. Patient had been having symptoms starting on July 05 and she was tested for Covid which came back on July 16 as positive. She initially been hospitalized for one day. She went back to the hospital on 07/18/2019 due to increased work of breathing. She was found to be hypoxic at 87% on room air, chest x-ray showed diffuse bilateral infiltrates, white blood cell count 16, platelets 511, lymphocytes 3.14, d-dimer 2.5 and BNP and troponins were negative. She was subsequently transferred here. She was started on hydroxychloroquine, doxycycline for possible atypical pneumonia and Rocephin for possible secondary bacterial infection. On her O2 requirements increased and pul was consulted they agreed with plan of care. On the morning of she was having increased work of breathing and her heart rate was up to 154. She was given 2 1L bolus with good result. WBC increasing and CXR with more consolidation her ABX were changed to zosyn and vanco. She had worsening respiratory distress. She was subsequently transferred to the ICU. She was intubated on the morning of 07/21/2019. She was started on a Nimbex, propofol, and fentanyl. She was requiring large amounts of sedation. Patient seen and examined at bedside. Currently sedated and paralyzed on vent. Discussed with nursing. Patient intubated this morning at approximately 9:30. Had central line and arterial line placed. On 07/22/2019 patient seen in follow-up in the intensive care unit. She is sedated, intubated, on mechanical ventilator, current vent settings are assist- control with a rate of 26, tidal vital 400, FiO2 40% and PEEP of 5, this morning his blood gases revealed pO2 175, pCO2 of 30, pH of 7.40, this was done on FiO2 of 40%. Today's blood work shows persistent leukocytosis, with white blood cell count of 22.1, hemoglobin is 7.4, lymphopenia with lymphocyte count is 0.7, neutrophilia with neutrophil count of 20.6, d-dimer slightly trending down, 2.04, sodium is 139, potassium is 4.2, chloride is 111, CO2 is 18, BUN of 9, creatinine 0.48. Ferritin remains elevated at 1267, CRP down slightly, at 345, pro-calcitonin was greater than 100. Influenza screen was negative. Blood cult ures were negative, sputum culture is pending. Fever pattern has improved, and last episode of fever was yesterday in the afternoon with a temp of 99.9F, afebrile overnight. Patient is currently on combination of cefepime, and vancomycin for antibiotic coverage, continues on IV Solu-Medrol, hydro xychloroquine. Today's chest x-ray shows some improvement in the right perihilar and infrahilar interstitial airspace disease, and persistent confluent left midlung and left basilar opacity with suspected trace to small left pleural effusion. Current IVs include 0.9 normal saline at a rate of 100 ML per hour, Diprivan is a 40 mics per kilo per minute, fentanyl at 1.5 mics per kilo per minute, Nimbex is at 2 mics per kilo per minute. No vasoactive drips. Reevaluated today on 07/23/19, patient remains in the intensive care unit, intubated and mechanically ventilated. Present vent settings are assist control rate of 26 tidal volume 400 FiO2 40% and PEEP is 12. Patient has a peak airway pressure of 35 plateau pressure of 27. Patient is still on fentanyl Nimbex and on propofol. Propofol is at 60 mcg/kg/m, fentanyl is at 2 mcg/kg/h, and Nimbex is at 1 mcg/kg. Her FiO2 was decreased down to 35%. And I plan to wean and possibly discontinue Nimbex today. CBC continues to show leukocytosis with WBC count of 20.4 hemoglobin is 7 and I plan to give the patient a unit of packed RBCs. Her ABG showed a pO2 of 138 pCO2 of 31 pH of 7.45. FiO2 was decreased down to 35%. Basic metabolic profile is normal renal profile is normal. LDH is down to 707 C-reactive protein is 167 pro-calcitonin is high, hence patient is being covered with antibiotics for superimposed bacterial infection. Chest x- ray continues to show significant left lower lobe consolidation, possibly associated with pleural effusion hence we will likely recommend ultrasound of the chest if does not improve in the next 24 hours. Reevaluated today on 07/24/19, patient remains in the ICU, intubated and mechanically ventilated. Ventilator settings are assist control of 26 tidal volume 400 FiO2 is 35% PEEP is at 12. Decreased down to 8. Her markers are basically about the same. Chest x-ray continues to show dense consolidation in the left lower lobe, possible pleural effusion. However ultrasound of the chest did not show the effusion isn't large enough or safe the Pap at this point. Hence I recommended no thoracentesis at this point. ABG today showed a pO2 of 95 pCO2 of 33 pH of 7.46. And this was on 35% FiO2 and PEEP of 12. WBC count is 20.5 hemoglobin is 8.3 electrolytes in the upper profile are normal. Ferritin remains elevated at 1325 LDH is 783, improving, C-reactive protein is 64.3. Pro-calcitonin remains high at 8.04. Patient remains on cefepime and vancomycin. Today the patient remains on Nimbex fentanyl and propofol at 60 mcg/kg/m, Nimbex is at 2 mcg/kg/m, and fentanyl is 2 mcg/kg/h. Remains on IV fluid of 0.9 normal saline S3 0 mL per hour. The ventilator settings changes today included increase FiO2 to 40% and decrease PEEP to 8. Planning to hold Nimbex, however the patient did not tolerate being off Nimbex, had to be placed back on Nimbex because of extreme agitation and tachypnea and could not be properly ventilated off Nimbex Patient was reevaluated today on 07/25/19, patient has covid 19 pneumonitis, remains intubated, and mechanically ventilated. Her ventilator settings are assist control rate of 26 tidal volume is 400 FiO2 is 40% PEEP is 8. Patient remains on multiple drips including Nimbex at 2 mcg/kg/m propofol at 50 mcg/kg/m, and fentanyl at 2 mcg/kg/m. Multiple attempts have been made yesterday and today to discontinue Nimbex and hopefully maintain the patient on propofol and fentanyl. However the patient seems to get extremely agitated, tachypneic, tachycardic, hypertensive, and have not been able to wean off Nimbex. I will give the patient another trial today. And if could not wean off the Nimbex, at least will cut down the propofol to 40 mcg/kg/m cut down the fentanyl to 1 mcg/kg per hour. Chest x-ray continues to show by basilar infi ltrates with slight improvement. Inflammatory markers are actually showing improvement LDH is down to 1987 and C-reactive protein is 45.6 pro-calcitonin is a bit high at 4.61. ABG today showed a pO2 of 70 pCO2 of 33 pH of 7.54. Electrolytes and renal profile are normal. Liver enzymes are borderline elevated. WBC count is 21.7 hemoglobin is 9.2 Objective - Vital Signs Vital signs: Vital Signs Temp 99.1 F 07/25/19 12:00 Pulse 79 07/25/19 12:00 Resp 26 H 07/25/19 12:00 BP 161/87 07/23/19 15:55 Pulse Ox 98 07/25/19 12:00 Intake & Output 07/24/19 07/25/19 07/25/19 18:59 06:59 18:59 Intake Total 2458.997 1354.39 808.464 Output Total 2800 1280 1000 Balance -341.003 74.39 -191.536 Weight 88.2 kg 88.5 kg 88.5 kg Intake: IV 936 636 418 .9 550 600 300 Cefepime 2 gm In Sodium 100 100 Chloride 0.9% 100 ml @ 200 mls/hr IVPB Q12HR [facility] Rx#:[id number] Vancomycin 1,500 mg In 250 Sodium Chloride 0.9% 250 ml @ 125 mls/hr IVPB Q8HR [facility] Rx#:[id number] pressure bag 36 36 18 Intake, IV Titration 1021.997 377.39 267.464 Amount Cisatracurium 200 mg In 32.562 96.39 Sodium Chloride 0.9% 180 ml @ 1 MCG/KG/MIN 4.86 mls/hr IV .Q24H [facility] Rx#: [id number] Propofol 1,000 mg In 289.435 100 202.124 Empty Bag 1 bag @ Titrate IV .Q0M [facility] Rx#: [id number] Vancomycin 1,750 mg In 500 Sodium Chloride 0.9% 500 ml 500 ml @ 167 mls/hr IVPB Q8HR [facility] Rx#: [id number] fentaNYL (PF) 1,000 mcg 200.000 181 65.34 In Sodium Chloride 0.9% 80 ml @ 1 MCG/KG/HR 8.1 mls/hr IV .[id number] [facility] Rx #:[id number] Tube Feeding 441 341 93 Other 60 30 Output: Urine 2800 1280 1000 Other: Voiding Method Indwelling Catheter Indwelling Catheter ABP, PAP, CO, CI - Last Documented Arterial Blood Pressure 132/63 - Exam GENERAL EXAM: Sedated, intubated, 44-year-old -[place] female, intubated and on mechanical ventilation. HEENT: PERRLA, EOMI, no icterus, no neck masses, no JVD, no stridor, endotracheal tube and orogastric tube are intact. NECK: No masses, no JVD, no thyroid enlargement, no adenopathy. CHEST: No chest wall deformity. Symmetrical expansion. LUNGS: Equal air entry with no crackles, wheeze, rhonchi or dullness. CVS: Regular rate and rhythm, normal S1 and S2, no gallops, no murmurs, no rubs ABDOMEN: Soft, nontender. No hepatosplenomegaly, normal bowel sounds, no guarding or rigidity. EXTREMITIES: No clubbing, no edema, no cyanosis, 2+ pulses and upper and lower extremities. SPINE: No scoliosis or deformity SKIN: No rashes CENTRAL NERVOUS SYSTEM: Sedated, intubated. Cannot be assessed. Psychiatric: Cannot be assessed. - Labs CBC & Chem 7: 07/25/19 05:20 07/25/19 05:20 Labs: Abnormal Lab Results - Last 24 Hours (Table) 07/24/19 07/24/19 07/25/19 Range/Units 18:14 23:46 05:20 WBC (3.8-10.6) k/uL RBC (3.80-5.40) m/uL Hgb (11.4-16.0) gm/dL Hct (34.0-46.0) % Plt Count (150-450) k/uL D-Dimer (<0.60) mg/L FEU ABG pH (7.35-7.45) ABG pCO2 (35-45) mmHg ABG pO2 (83-108) mmHg ABG HCO3 (21-25) mmol/L ABG Total CO2 (19-24) mmol/L Creatinine (0.52-1.04) mg/dL Glucose (74-99) mg/dL POC Glucose (mg/dL) 120 H 122 H (75-99) mg/dL Calcium (8.4-10.2) mg/dL Ferritin (10.0-291.0) ng/mL AST (14-36) U/L ALT (4-34) U/L Lactate Dehydrogenase (313-618) U/L C-Reactive Protein (<10.0) mg/L Total Protein (6.3-8.2) g/dL Albumin (3.5-5.0) g/dL Procalcitonin 4.61 H (0.02-0.09) ng/mL 07/25/19 07/25/19 07/25/19 Range/Units 05: 05:20 05:20 WBC 21.7 H (3.8-10.6) k/uL RBC 3.10 L (3.80-5.40) m/uL Hgb 9.2 L (11.4-16.0) gm/dL Hct 28.5 L (34.0-46.0) % Plt Count 574 H (150-450) k/uL D-Dimer 3.62 H (<0.60) mg/L FEU ABG pH (7.35-7.45) ABG pCO2 (35-45) mmHg ABG pO2 (83-108) mmHg ABG HCO3 (21-25) mmol/L ABG Total CO2 (19-24) mmol/L Creatinine 0.46 L (0.52-1.04) mg/dL Glucose 114 H (74-99) mg/dL POC Glucose (mg/dL) (75-99) mg/dL Calcium 8.2 L (8.4-10.2) mg/dL Ferritin (10.0-291.0) ng/mL AST 54 H (14-36) U/L ALT 37 H (4-34) U/L Lactate Dehydrogenase 987 H (313-618) U/L C-Reactive Protein 45.6 H (<10.0) mg/L Total Protein 6.0 L (6.3-8.2) g/dL Albumin 2.7 L (3.5-5.0) g/dL Procalcitonin (0.02-0.09) ng/mL 07/25/19 07/25/19 07/25/19 Range/Units 05:20 07:44 11:44 WBC (3.8-10.6) k/uL RBC (3.80-5.40) m/uL Hgb (11.4-16.0) gm/dL Hct (34.0-46.0) % Plt Count (150-450) k/uL D-Dimer (<0.60) mg/L FEU ABG pH 7.54 H (7.35-7.45) ABG pCO2 33 L (35-45) mmHg ABG pO2 70 L (83-108) mmHg ABG HCO3 28 H (21-25) mmol/L ABG Total CO2 29 H (19-24) mmol/L Creatinine (0.52-1.04) mg/dL Glucose (74-99) mg/dL POC Glucose (mg/dL) 127 H (75-99) mg/dL Calcium (8.4-10.2) mg/dL Ferritin 1268.3 H (10.0-291.0) ng/mL AST (14-36) U/L ALT (4-34) U/L Lactate Dehydrogenase (313-618) U/L C-Reactive Protein (<10.0) mg/L Total Protein (6.3-8.2) g/dL Albumin (3.5-5.0) g/dL Procalcitonin (0.02-0.09) ng/mL Microbiology - Last 24 Hours (Table) 07/19/19 01:31 Blood Culture - Final Blood No Growth after 144 hours 07/21/19 21:04 Gram Stain - Final Sputum Sputum Culture - Final Assessment and Plan Assessment: Impression: Acute hypoxic and hypercapnic respiratory failure secondary to covid 19 pneumonitis, requiring intubation and mechanical ventilation. Acute covid 19 pneumonitis with elevated inflammatory markers including LDH C- reactive protein ferritin and d-dimer. However they seem to be improving today. Left lower lobe consolidation, possible left pleural effusion with elevated pro calcitonin level, possible superimposed bacterial infection, ultrasound of the chest was reviewed, based on the findings I believe the patient will not have a safe thoracentesis. History of fibromyalgia. History of tubal ligation and breast reduction. Recommendation: Continue ventilatory support. Continue same ventilator settings assist control rate of 24 FiO2 is 40% tidal volume 400 PEEP is 8. Peak pressure today is 30 and plateau pressure is 24 We'll attempt to wean and discontinue Nimbex if possible today. And will adjust the dosages of fentanyl and propofol. Continue enteral feeding. Continue GI and DVT prophylaxis. Continue antibiotics. Followed by ID. Daily interruption of sedation and assessment of mental status. Monitor labs daily. Prognosis is extremely poor and guarded, patient is critically ill. Critical care time is 33 minutes. Time with Patient: Greater than 30
[2019-07-25] MEDS: CLEVIDIPINE BUTYRATE 25 MG in EMPTY BAG 1 BAG IV SCH (14:33)
--- NOTE | 2019-07-25 16:07 | P.PN ---
Subjective Progress Note Date: 07/25/19 Principal diagnosis: COVID 19 pneumonia Patient is a 44-year-old -[place] female past medical history of fibromyalgia who presented as a transfer from [facility] as part of the Covid 19 relief process. Patient had been having symptoms starting on July 05 and she was tested for Covid which came back on July 16 as positive. She initially been hospitalized for one day. She went back to the hospital on 07/18/2019 due to increased work of breathing. She was found to be hypoxic at 87% on room air, chest x-ray showed diffuse bilateral infiltrates, white blood cell count 16, platelets 511, lymphocytes 3.14, d-dimer 2.5 and BNP and troponins were negative. She was subsequently transferred here. She was started on hydroxychloroquine, doxycycline for possible atypical pneumonia and Rocephin for possible secondary bacterial infection. On her O2 requirements increased and pul was consulted they agreed with plan of care. On the morning of she was having increased work of breathing and her heart rate was up to 154. She was given 2 1L bolus with good result. WBC increasing and CXR with more consolidation her ABX were changed to zosyn and vanco. She had worsening respiratory distress. She was subsequently transferred to the ICU. She was in tubated on the morning of 07/21/2019. She was started on a Nimbex, propofol, and fentanyl. She was requiring large amounts of sedation. Patient was seen and examined. Currently sedated on ventilator. Discussed with nursing, no reported events. PEEP unchanged at 8. Will attempt trial of Nibex weaning again today. Hemoglobin improved after one PRBC from 7-9.2 with 1 PRBC. Chest x-ray is stable. Chest ultrasound shows 8.2 cm pocket size effusion on the left side. Her pro-calcitonin is steadily decreasing. CRP is coming down. Lactate dehydrogenase slightly increased. Liver enzymes slightly increased. Ferritin slightly coming down. D-dimer is elevated from 2.25-3.6 to today. Objective - Vital Signs Vital signs: Vital Signs Temp 99.1 F 07/25/19 12:00 Pulse 67 07/25/19 14:00 Resp 26 H 07/25/19 14:00 BP 161/87 07/23/19 15:55 Pulse Ox 98 07/25/19 14:00 Intake & Output 07/24/19 07/25/19 07/25/19 18:59 06:59 18:59 Intake Total 2458.997 1354.39 1033.583 Output Total 2800 1280 1300 Balance -341.003 74.39 -266.417 Weight 88.2 kg 88.5 kg 88.5 kg Intake: IV 936 636 524 .9 550 600 400 Cefepime 2 gm In Sodium 100 100 Chloride 0.9% 100 ml @ 200 mls/hr IVPB Q12HR [facility] Rx#:[id number] Vancomycin 1,500 mg In 250 Sodium Chloride 0.9% 250 ml @ 125 mls/hr IVPB Q8HR [facility] Rx#:[id number] pressure bag 36 36 24 Intake, IV Titration 1021.997 377.39 386.583 Amount Cisatracurium 200 mg In 32.562 96.39 Sodium Chloride 0.9% 180 ml @ 1 MCG/KG/MIN 4.86 mls/hr IV .Q24H [facility] Rx#: [id number] Clevidipine Butyrate 25 50 mg In Empty Bag 1 bag @ 1 MG/HR 2 mls/hr IV .Q24H [facility] Rx#:[id number] Propofol 1,000 mg In 289.435 100 271.243 Empty Bag 1 bag @ Titrate IV .Q0M [facility] Rx#: [id number] Vancomycin 1,750 mg In 500 Sodium Chloride 0.9% 500 ml 500 ml @ 167 mls/hr IVPB Q8HR [facility] Rx#: [id number] fentaNYL (PF) 1,000 mcg 200.000 181 65.34 In Sodium Chloride 0.9% 80 ml @ 1 MCG/KG/HR 8.1 mls/hr IV .[id number] [facility] Rx #:[id number] Tube Feeding 441 341 93 Other 60 30 Output: Urine 2800 1280 1300 Other: Voiding Method Indwelling Catheter Indwelling Catheter Indwelling Catheter ABP, PAP, CO, CI - Last Documented Arterial Blood Pressure 127/57 - Exam General: [non toxic], [intubated], [appears at stated age] Derm: [warm], [dry] Head: [atraumatic], [normocephalic], [symmetric] Eyes: [EOMI], [no lid lag], [anicteric sclera] Mouth: [no lip lesion], [mucus membranes moist] Cardiovascular: [S1S2 reg], [no murmur], [positive DP pulse bilateral], Lungs: [Coarse breath sounds bilateral], [no rhonchi, no rales] , [no accessory muscle use] Abdominal: [soft], [ nontender to palpation], [no guarding], [no appreciable organomegaly] Ext: [no gross muscle atrophy], [no edema], [no contractures] Neuro: [Unable to determine] Psych: [Unable to determine] - Labs CBC & Chem 7: 07/25/19 05:07/25/19 05:20 Labs: Abnormal Lab Results - Last 24 Hours (Table) 07/24/19 07/24/19 07/25/19 Range/Units 18:14 23:46 05:20 WBC (3.8-10.6) k/uL RBC (3.80-5.40) m/uL Hgb (11.4-16.0) gm/dL Hct (34.0-46.0) % Plt Count (150-450) k/uL D-Dimer (<0.60) mg/L FEU ABG pH (7.35-7.45) ABG pCO2 (35-45) mmHg ABG pO2 (83-108) mmHg ABG HCO3 (21-25) mmol/L ABG Total CO2 (19-24) mmol/L Creatinine (0.52-1.04) mg/dL Glucose (74-99) mg/dL POC Glucose (mg/dL) 120 H 122 H (75-99) mg/dL Calcium (8.4-10.2) mg/dL Ferritin (10.0-291.0) ng/mL AST (14-36) U/L ALT (4-34) U/L Lactate Dehydrogenase (313-618) U/L C-Reactive Protein (<10.0) mg/L Total Protein (6.3-8.2) g/dL Albumin (3.5-5.0) g/dL Procalcitonin 4.61 H (0.02-0.09) ng/mL 07/25/19 07/25/19 07/25/19 Range/Units 05:20 05:20 05:20 WBC 21.7 H (3.8-10.6) k/uL RBC 3.10 L (3.80-5.40) m/uL Hgb 9.2 L (11.4-16.0) gm/dL Hct 28.5 L (34.0-46.0) % Plt Count 574 H (150-450) k/uL D-Dimer 3.62 H (<0.60) mg/L FEU ABG pH (7.35-7.45) ABG pCO2 (35-45) mmHg ABG pO2 (83-108) mmHg ABG HCO3 (21-25) mmol/L ABG Total CO2 (19-24) mmol/L Creatinine 0.46 L (0.52-1.04) mg/dL Glucose 114 H (74-99) mg/dL POC Glucose (mg/dL) (75-99) mg/dL Calcium 8.2 L (8.4-10.2) mg/dL Ferritin (10.0-291.0) ng/mL AST 54 H (14-36) U/L ALT 37 H (4-34) U/L Lactate Dehydrogenase 987 H (313-618) U/L C-Reactive Protein 45.6 H (<10.0) mg/L Total Protein 6.0 L (6.3-8.2) g/dL Albumin 2.7 L (3.5-5.0) g/dL Procalcitonin (0.02-0.09) ng/mL 07/25/19 07/25/19 07/25/19 Range/Units 05:20 07:44 11:44 WBC (3.8-10.6) k/uL RBC (3.80-5.40) m/uL Hgb (11.4-16.0) gm/dL Hct (34.0-46.0) % Plt Count (150-450) k/uL D-Dimer (<0.60) mg/L FEU ABG pH 7.54 H (7.35-7.45) ABG pCO2 33 L (35-45) mmHg ABG pO2 70 L (83-108) mmHg ABG HCO3 28 H (21-25) mmol/L ABG Total CO2 29 H (19-24) mmol/L Creatinine (0.52-1.04) mg/dL Glucose (74-99) mg/dL POC Glucose (mg/dL) 127 H (75-99) mg/dL Calcium (8.4-10.2) mg/dL Ferritin 1268.3 H (10.0-291.0) ng/mL AST (14-36) U/L ALT (4-34) U/L Lactate Dehydrogenase (313-618) U/L C-Reactive Protein (<10.0) mg/L Total Protein (6.3-8.2) g/dL Albumin (3.5-5.0) g/dL Procalcitonin (0.02-0.09) ng/mL Microbiology - Last 24 Hours (Table) 07/19/19 01:31 Blood Culture - Final Blood No Growth after 144 hours Assessment and Plan Assessment: left lower lobe pneumonia with bilateral pneumonitis suspect secondary bacterial infection with COVID-19 positive infection, acute hypoxic respiratory failure, sepsis, ARDS -Vanco discontinued by infectious disease and cefepime continued for concerns of hospital-acquired pneumonia -Trend CRP, LDH, pro-calcitonin, CPK, and ferritin -Influenza negative -Procalcitonin greatly positive -Daily CXR -Vent management per pulmonary, attempt to wean off sedation when appropriate, patient not safe for thoracentesis as per pulmonology - hydorxychloriquine, zinc -Gentle IV fluids Anemia, worsening -Hemoglobin stable after transfusing 1 unit PRBC 07/23/2019 -Suspect dilutional, MCV and MCH increasing Thrombocytosis -Suspect reactive -Follow CBC Costochondritis -Tylenol and Toradol for pain control Fibromyalgia -Supportive care DVT prophylaxis: Heparin Discussed with: nursing Anticipated discharge: Undetermined Anticipated discharge place: home A total of 35 minutes was spent on the care of this complex patient more than 50% of the time was spent in counseling and care coordination.
[2019-07-25 18:26] LABS: Glucose,Whole Blood 129 mg/dL (75-99)
--- NOTE | 2019-07-25 22:21 | PN ---
PROGRESS NOTE DATE OF SERVICE: 07/25/2019 REASON FOR FOLLOWUP: Acute COVID-19 pneumonia. INTERVAL HISTORY: The patient is currently afebrile. The patient is hemodynamically stable. FiO2 is currently stable at 40%. No apparent secretions in the ET or any diarrhea has been reported. PHYSICAL EXAMINATION: Blood pressure 138/62 with a pulse of 67, temperature 99. She is 97% on 40% FiO2. General description is a middle-aged female lying in bed in no distress. RESPIRATORY: Lungs are clear to auscultation per the RN. EXTREMITIES: No edema of the feet. LABS: Hemoglobin 9.2, white count 21.7, BUN of 12, creatinine 0.46. DIAGNOSTIC IMPRESSION AND PLAN: 1. Patient with acute COVID-19 pneumonia in this patient who has completed her Plaquenil therapy. She will continue with zinc, steroids, and we will monitor clinical course closely. 2. Patient with elevated white count, more likely steroid effect. Will be monitored. There is currently no evidence of any secondary bacterial infection. MMODL / IJN: [id number] /
[2019-07-25 23:44] LABS: Glucose,Whole Blood 109 mg/dL (75-99)
[2019-07-26] MEDS: PROPOFOL 1,000 MG in EMPTY BAG 1 BAG IV SCH ×4 (00:05→08:13)
[2019-07-26] MEDS: HEPARIN SODIUM,PORCINE 5,000 UNIT/ML 1 ML VIAL SQ SCH ×2 (00:05→08:16)
[2019-07-26] MEDS: SODIUM CHLORIDE 0.9% 1,000 ML IV SCH (03:11)
[2019-07-26 04:23] LABS: HCT 28.1 % (34.0-46.0); MCH 30.1 pg (25.0-35.0); MCHC 32.2 g/dL (31.0-37.0); MCV 93.4 fL (80.0-100.0); Mean Platelet Volume 7.2; Platelet Count 486 k/uL (150-450); RBC 3.01 m/uL (3.80-5.40); RDW 14.7 % (11.5-15.5)
[2019-07-26 04:33] LABS: Sodium 136 mmol/L (137-145)
[2019-07-26 04:36] LABS: ALT 45 U/L (4-34); AST 51 U/L (14-36); African American GFR (CKD) >90 (>60 ml/min/1.73 sqM); Albumin 2.5 g/dL (3.5-5.0); Alkaline Phosphatase 107 U/L (38-126); Anion Gap 6 mmol/L; Blood Urea Nitrogen 14 mg/dL (7-17); C Reactive Protein 41.8 mg/L (<10.0); Calcium 8.2 mg/dL (8.4-10.2); Carbon Dioxide 26 mmol/L (22-30); Chloride 104 mmol/L (98-107); Creatine Kinase 167 U/L (30-135); Glucose 106 mg/dL (74-99); LDH 953 U/L (313-618); Non-African American GFR(CKD) >90 (>60 ml/min/1.73 sqM); Potassium 3.3 mmol/L (3.5-5.1); Total Bilirubin 0.5 mg/dL (0.2-1.3); Total Protein 5.6 g/dL (6.3-8.2)
[2019-07-26] MEDS ORDERED: Potassium Replacement Protocol 1 EACH MISC MISCELLANE PRN (04:56)
[2019-07-26] MEDS: POTASSIUM BICARBONATE/CIT AC 20 MEQ TABLET.EFF NG-TUBE SCH ×2 (05:17→06:32)
[2019-07-26] MEDS: fentaNYL (PF) 1,000 MCG in SODIUM CHLORIDE 0.9% 80 ML IV SCH (05:17)
[2019-07-26] MEDS: INSULIN ASPART (NovoLOG) 100 UNIT/ML VIAL SQ SCH ×3 (05:25→18:50)
[2019-07-26 05:38] LABS: Band Neutrophils % 6 %; Eosinophils # (M) 0.37 k/uL (0-0.7); Lymphocytes # (M) 2.78 k/uL (1.0-4.8); Metamyelocytes # (M) 0.74 k/uL (0); Metamyelocytes % 4 %; Myelocytes # (M) 0.37 k/uL (0); Myelocytes % 2 %; Neutrophils % (M) 66 %; Nucleated Red Blood Cells 3 /100 WBC (0-0); Polychromasia Present; Total Cells Counted 200; WBC 18.5 k/uL (3.8-10.6)
--- NOTE | 2019-07-26 06:48 | XR ---
EXAMINATION TYPE: XR chest 1V portable DATE OF EXAM: 07/26/2019 CLINICAL HISTORY: Difficulty breathing progress study. TECHNIQUE: Single AP portable semiupright view of the chest is obtained. COMPARISON: Chest x-ray from one day earlier and older studies. FINDINGS: Stable endotracheal and orogastric tubes. Cardiac silhouette size stable and upper limits of normal. Persistent left greater than right bibasilar opacities with silhouetting left hemidiaphrag m. More central opacities bilaterally show improvement. Osseous structures are intact. IMPRESSION: Improving central opacities bilaterally. Persistent left greater than right bibasilar acu te infiltrates fairly stable. Cannot exclude small left pleural effusion.
[2019-07-26 07:36] LABS: ABG Base Excess 4.1 mmol/L; ABG HCO3 27 mmol/L (21-25); ABG Oxygen Saturation 99.8 % (94-97); ABG PCO2 31 mmHg (35-45); ABG PH 7.55 (7.35-7.45); ABG PO2 155 mmHg (83-108); ABG TCO2 27 mmol/L (19-24)
[2019-07-26 07:59] LABS: Allen Test Performed? no
[2019-07-26] MEDS: CEFEPIME 2 GM in SODIUM CHLORIDE 0.9% 100 ML IVPB SCH ×2 (08:15→20:04)
[2019-07-26] MEDS: methylPREDNISolone SOD SUCCI 40 MG/ML 1 ML VIAL IV SCH ×2 (08:16→20:05)
[2019-07-26] MEDS: ZINC SULFATE 220 MG CAP PO SCH (08:16)
[2019-07-26] MEDS: PANTOPRAZOLE 40 MG/10 ML VIAL IVP SCH (08:16)
[2019-07-26] MEDS: CHLORHEXIDINE GLUCONATE 15 ML CUP MUCOUS MEM SCH ×2 (08:17→21:15)
[2019-07-26 09:10] LABS: ABG Base Excess 3.4 mmol/L; ABG HCO3 27 mmol/L (21-25); ABG Oxygen Saturation 99.1 % (94-97); ABG PCO2 39 mmHg (35-45); ABG PH 7.45 (7.35-7.45); ABG PO2 126 mmHg (83-108); ABG TCO2 29 mmol/L (19-24); Allen Test Performed? Yes
[2019-07-26 11:19] LABS: Ferritin 989.7 ng/mL (10.0-291.0)
[2019-07-26 11:51] LABS: Glucose,Whole Blood 124 mg/dL (75-99)
--- NOTE | 2019-07-26 12:55 | P.PN ---
Subjective Progress Note Date: 07/26/19 Principal diagnosis: Acute hypoxic and hypercapnic respiratory failure secondary to acute covid 19 pneumonitis. Patient is a 44-year-old -[place] female past medical history of fibromyalgia who presented as a transfer from [facility] as part of the Covid 19 relief process. Patient had been having symptoms starting on July 05 and she was tested for Covid which came back on July 16 as positive. She initially been hospitalized for one day. She went back to the hospital on 07/18/2019 due to increased work of breathing. She was found to be hypoxic at 87% on room air, chest x-ray showed diffuse bilateral infiltrates, white blood cell count 16, platelets 511, lymphocytes 3.14, d-dimer 2.5 and BNP and troponins were negative. She was subsequently transferred here. She was started on hydroxychloroquine, doxycycline for possible atypical pneumonia and Rocephin for possible secondary bacterial infection. On her O2 requirements increased and pul was consulted they agreed with plan of care. On the morning of she was having increased work of breathing and her heart rate was up to 154. She was given 2 1L bolus with good result. WBC increasing and CXR with more consolidation her ABX were changed to zosyn and vanco. She had worsening respiratory distress. She was subsequently transferred to the ICU. She was intubated on the morning of 07/21/2019. She was started on a Nimbex, propofol, and fentanyl. She was requiring large amounts of sedation. Patient seen and examined at bedside. Currently sedated and paralyzed on vent. Discussed with nursing. Patient intubated this morning at approximately 9:30. Had central line and arterial line placed. On 07/22/2019 patient seen in follow-up in the intensive care unit. She is sedated, intubated, on mechanical ventilator, current vent settings are assist- control with a rate of 26, tidal vital 400, FiO2 40% and PEEP of 5, this morning his blood gases revealed pO2 175, pCO2 of 30, pH of 7.40, this was done on FiO2 of 40%. Today's blood work shows persistent leukocytosis, with white blood cell count of 22.1, hemoglobin is 7.4, lymphopenia with lymphocyte count is 0.7, neutrophilia with neutrophil count of 20.6, d-dimer slightly trending down, 2.04, sodium is 139, potassium is 4.2, chloride is 111, CO2 is 18, BUN of 9, creatinine 0.48. Ferritin remains elevated at 1267, CRP down slightly, at 345, pro-calcitonin was greater than 100. Influenza screen was negative. Blood cult ures were negative, sputum culture is pending. Fever pattern has improved, and last episode of fever was yesterday in the afternoon with a temp of 99.9F, afebrile overnight. Patient is currently on combination of cefepime, and vancomycin for antibiotic coverage, continues on IV Solu-Medrol, hydro xychloroquine. Today's chest x-ray shows some improvement in the right perihilar and infrahilar interstitial airspace disease, and persistent confluent left midlung and left basilar opacity with suspected trace to small left pleural effusion. Current IVs include 0.9 normal saline at a rate of 100 ML per hour, Diprivan is a 40 mics per kilo per minute, fentanyl at 1.5 mics per kilo per minute, Nimbex is at 2 mics per kilo per minute. No vasoactive drips. Reevaluated today on 07/23/19, patient remains in the intensive care unit, intubated and mechanically ventilated. Present vent settings are assist control rate of 26 tidal volume 400 FiO2 40% and PEEP is 12. Patient has a peak airway pressure of 35 plateau pressure of 27. Patient is still on fentanyl Nimbex and on propofol. Propofol is at 60 mcg/kg/m, fentanyl is at 2 mcg/kg/h, and Nimbex is at 1 mcg/kg. Her FiO2 was decreased down to 35%. And I plan to wean and possibly discontinue Nimbex today. CBC continues to show leukocytosis with WBC count of 20.4 hemoglobin is 7 and I plan to give the patient a unit of packed RBCs. Her ABG showed a pO2 of 138 pCO2 of 31 pH of 7.45. FiO2 was decreased down to 35%. Basic metabolic profile is normal renal profile is normal. LDH is down to 707 C-reactive protein is 167 pro-calcitonin is high, hence patient is being covered with antibiotics for superimposed bacterial infection. Chest x- ray continues to show significant left lower lobe consolidation, possibly associated with pleural effusion hence we will likely recommend ultrasound of the chest if does not improve in the next 24 hours. Reevaluated today on 07/24/19, patient remains in the ICU, intubated and mechanically ventilated. Ventilator settings are assist control of 26 tidal volume 400 FiO2 is 35% PEEP is at 12. Decreased down to 8. Her markers are basically about the same. Chest x-ray continues to show dense consolidation in the left lower lobe, possible pleural effusion. However ultrasound of the chest did not show the effusion isn't large enough or safe the Pap at this point. Hence I recommended no thoracentesis at this point. ABG today showed a pO2 of 95 pCO2 of 33 pH of 7.46. And this was on 35% FiO2 and PEEP of 12. WBC count is 20.5 hemoglobin is 8.3 electrolytes in the upper profile are normal. Ferritin remains elevated at 1325 LDH is 783, improving, C-reactive protein is 64.3. Pro-calcitonin remains high at 8.04. Patient remains on cefepime and vancomycin. Today the patient remains on Nimbex fentanyl and propofol at 60 mcg/kg/m, Nimbex is at 2 mcg/kg/m, and fentanyl is 2 mcg/kg/h. Remains on IV fluid of 0.9 normal saline S3 0 mL per hour. The ventilator settings changes today included increase FiO2 to 40% and decrease PEEP to 8. Planning to hold Nimbex, however the patient did not tolerate being off Nimbex, had to be placed back on Nimbex because of extreme agitation and tachypnea and could not be properly ventilated off Nimbex Patient was reevaluated today on 07/25/19, patient has covid 19 pneumonitis, remains intubated, and mechanically ventilated. Her ventilator settings are assist control rate of 26 tidal volume is 400 FiO2 is 40% PEEP is 8. Patient remains on multiple drips including Nimbex at 2 mcg/kg/m propofol at 50 mcg/kg/m, and fentanyl at 2 mcg/kg/m. Multiple attempts have been made yesterday and today to discontinue Nimbex and hopefully maintain the patient on propofol and fentanyl. However the patient seems to get extremely agitated, tachypneic, tachycardic, hypertensive, and have not been able to wean off Nimbex. I will give the patient another trial today. And if could not wean off the Nimbex, at least will cut down the propofol to 40 mcg/kg/m cut down the fentanyl to 1 mcg/kg per hour. Chest x-ray continues to show by basilar infi ltrates with slight improvement. Inflammatory markers are actually showing improvement LDH is down to 1987 and C-reactive protein is 45.6 pro-calcitonin is a bit high at 4.61. ABG today showed a pO2 of 70 pCO2 of 33 pH of 7.54. Electrolytes and renal profile are normal. Liver enzymes are borderline elevated. WBC count is 21.7 hemoglobin is 9.2 Reevaluated today on 07/26/19, patient remains in the ICU, intubated, mechanically ventilated. Her ventilator settings are assist control rate of 26 tidal volume is 400 FiO2 is 40% and PEEP is at 8. Patient is now off fentanyl and off propofol, and she is awake. Does not seem to be in any distress, she is presently on assist control mode of mechanical ventilation, hence after evaluating the patient and evaluating her chest x-ray as well as her labs, I recommended placing the patient on a pressure support of 8 and CPAP. Discontinued completely her fentanyl propofol, and repeated and ABG after half an hour of being on pressure support and CPAP. Then I recommended extubating the patient. Chest x-ray showing improved central opacities bilaterally nonetheless she continues to have some opacities in the left midlung and right lower lobe. But improved compared to baseline. ABG today showed a pO2 of 126 pCO2 of 39 pH of 7.45. And this was on pressure support of 8 and CPAP. Basic metabolic profile was noted to be normal. CBC was normal. Inflammatory markers seem to be improving including LDH, C-reactive protein, and ferritin. Objective - Vital Signs Vital signs: Vital Signs Temp 100.4 F H 07/26/19 10:00 Pulse 113 H 07/26/19 12:00 Resp 15 07/26/19 12:00 BP 161/87 07/23/19 15:55 Pulse Ox 99 07/26/19 12:00 Intake & Output 07/25/19 07/26/19 07/26/19 18:59 06:59 18:59 Intake Total 7107.325 8995.490 543.547 Output Total 1720 1700 1215 Balance -226.417 -172.510 -671.453 Weight 88.5 kg 87 kg Intake: IV 736 733 318 .9 600 600 300 Cefepime 2 gm In Sodium 100 100 Chloride 0.9% 100 ml @ 200 mls/hr IVPB Q12HR [facility] Rx#:[id number] pressure bag 36 33 18 Intake, IV Titration 586.583 512.490 109.547 Amount Clevidipine Butyrate 25 50 35.833 mg In Empty Bag 1 bag @ 1 MG/HR 2 mls/hr IV .Q24H [facility] Rx#:[id number] Propofol 1,000 mg In 371.243 281.077 57.437 Empty Bag 1 bag @ Titrate IV .Q0M [facility] Rx#: [id number] fentaNYL (PF) 1,000 mcg 165.34 195.58 52.11 In Sodium Chloride 0.9% 80 ml @ 1 MCG/KG/HR 8.1 mls/hr IV .[id number] [facility] Rx #:[id number] Tube Feeding 141 192 16 Lipid 100 Cefepime 2 gm In Sodium 100 Chloride 0.9% 100 ml @ 200 mls/hr IVPB Q12HR [facility] Rx#:[id number] Other 30 90 Output: Urine 1720 1700 1215 Other: Voiding Method Indwelling Catheter Indwelling Catheter Indwelling Catheter # Voids 1 # Bowel Movements 1 ABP, PAP, CO, CI - Last Documented Arterial Blood Pressure 168/88 - Exam GENERAL EXAM: Sedated, intubated, 44-year-old -[place] female, intubated and on mechanical ventilation. Arousable, follows simple instructions with small dose of fentanyl and propofol. HEENT: PERRLA, EOMI, no icterus, no neck masses, no JVD, no stridor, endotracheal tube and orogastric tube are intact. NECK: No masses, no JVD, no thyroid enlargement, no adenopathy. CHEST: No chest wall deformity. Symmetrical expansion. LUNGS: Equal air entry with no crackles, wheeze, rhonchi or dullness. CVS: Regular rate and rhythm, normal S1 and S2, no gallops, no murmurs, no rubs ABDOMEN: Soft, nontender. No hepatosplenomegaly, normal bowel sounds, no guarding or rigidity. EXTREMITIES: No clubbing, no edema, no cyanosis, 2+ pulses and upper and lower extremities. SPINE: No scoliosis or deformity SKIN: No rashes CENTRAL NERVOUS SYSTEM: Awake, follows simple instructions, and comprehending verbal request Psychiatric: Normal mood affect and normal mental status examination - Labs CBC & Chem 7: 07/26/19 04:00 07/26/19 04:00 Labs: Abnormal Lab Results - Last 24 Hours (Table) 07/25/19 07/25/19 07/26/19 Range/Units 18:25 23:42 04:00 WBC 18.5 H (3.8-10.6) k/uL RBC 3.01 L (3.80-5.40) m/uL Hgb 9.0 L (11.4-16.0) gm/dL Hct 28.1 L (34.0-46.0) % Plt Count 486 H (150-450) k/uL Neutrophils # (Manual) 13.30 H (1.3-7.7) k/uL Monocytes # (Manual) 1.30 H (0-1.0) k/uL Metamyelocytes # (Man) 0.74 H (0) k/uL Myelocytes # (Manual) 0.37 H (0) k/uL Nucleated RBCs 3 H (0-0) /100 WBC ABG pH (7.35-7.45) ABG pCO2 (35-45) mmHg ABG pO2 (83-108) mmHg ABG HCO3 (21-25) mmol/L ABG Total CO2 (19-24) mmol/L ABG O2 Saturation (94-97) % Sodium (137-145) mmol/L Potassium (3.5-5.1) mmol/L Creatinine (0.52-1.04) mg/dL Glucose (74-99) mg/dL POC Glucose (mg/dL) 129 H 109 H (75-99) mg/dL Calcium (8.4-10.2) mg/dL Ferritin (10.0-291.0) ng/mL AST (14-36) U/L ALT (4-34) U/L Lactate Dehydrogenase (313-618) U/L Creatine Kinase (30-135) U/L C-Reactive Protein (<10.0) mg/L Total Protein (6.3-8.2) g/dL Albumin (3.5-5.0) g/dL 07/26/19 07/26/19 07/26/19 Range/Units 04:00 07:30 09:04 WBC (3.8-10.6) k/uL RBC (3.80-5.40) m/uL Hgb (11.4-16.0) gm/dL Hct (34.0-46.0) % Plt Count (150-450) k/uL Neutrophils # (Manual) (1.3-7.7) k/uL Monocytes # (Manual) (0-1.0) k/uL Metamyelocytes # (Man) (0) k/uL Myelocytes # (Manual) (0) k/uL Nucleated RBCs (0-0) /100 WBC ABG pH 7.55 H (7.35-7.45) ABG pCO2 31 L (35-45) mmHg ABG pO2 155 H 126 H (83-108) mmHg ABG HCO3 27 H 27 H (21-25) mmol/L ABG Total CO2 27 H 29 H (19-24) mmol/L ABG O2 Saturation 99.8 H 99.1 H (94-97) % Sodium 136 L (137-145) mmol/L Potassium 3.3 L (3.5-5.1) mmol/L Creatinine 0.48 L (0.52-1.04) mg/dL Glucose 106 H (74-99) mg/dL POC Glucose (mg/dL) (75-99) mg/dL Calcium 8.2 L (8.4-10.2) mg/dL Ferritin 989.7 H (10.0-291.0) ng/mL AST 51 H (14-36) U/L ALT 45 H (4-34) U/L Lactate Dehydrogenase 953 H (313-618) U/L Creatine Kinase 167 H (30-135) U/L C-Reactive Protein 41.8 H (<10.0) mg/L Total Protein 5.6 L (6.3-8.2) g/dL Albumin 2.5 L (3.5-5.0) g/dL 07/26/19 Range/Units 11:50 WBC (3.8-10.6) k/uL RBC (3.80-5.40) m/uL Hgb (11.4-16.0) gm/dL Hct (34.0-46.0) % Plt Count (150-450) k/uL Neutrophils # (Manual) (1.3-7.7) k/uL Monocytes # (Manual) (0-1.0) k/uL Metamyelocytes # (Man) (0) k/uL Myelocytes # (Manual) (0) k/uL Nucleated RBCs (0-0) /100 WBC ABG pH (7.35-7.45) ABG pCO2 (35-45) mmHg ABG pO2 (83-108) mmHg ABG HCO3 (21-25) mmol/L ABG Total CO2 (19-24) mmol/L ABG O2 Saturation (94-97) % Sodium (137-145) mmol/L Potassium (3.5-5.1) mmol/L Creatinine (0.52-1.04) mg/dL Glucose (74-99) mg/dL POC Glucose (mg/dL) 124 H (75-99) mg/dL Calcium (8.4-10.2) mg/dL Ferritin (10.0-291.0) ng/mL AST (14-36) U/L ALT (4-34) U/L Lactate Dehydrogenase (313-618) U/L Creatine Kinase (30-135) U/L C-Reactive Protein (<10.0) mg/L Total Protein (6.3-8.2) g/dL Albumin (3.5-5.0) g/dL Assessment and Plan Assessment: Impression: Acute hypoxic and hypercapnic respiratory failure secondary to covid 19 pneumonitis, requiring intubation and mechanical ventilation. Acute covid 19 pneumonitis with elevated inflammatory markers including LDH C- reactive protein ferritin and d-dimer. Continue to improve Left lower lobe consolidation, possible left pleural effusion with elevated pro calcitonin level, possible superimposed bacterial infection, ultrasound of the chest was reviewed, based on the findings I believe the patient will not have a safe thoracentesis. History of fibromyalgia. History of tubal ligation and breast reduction. Recommendation: Patient will be given a trial of pressure support and CPAP, and we'll likely proceed to extubating the patient if tolerated. Discontinue sedatives and narcotics. Hold enteral feeding before extubation. And empty her stomach. Continue GI and DVT prophylaxis. Continue antibiotics. Monitor labs daily. We'll likely extubate, Nonetheless the patient remains critically ill, and she will be monitored at [facility] in the ICU for the next 24 hours if extubated. Critical care time is 32 minutes Time with Patient: Greater than 30
[2019-07-26] MEDS ORDERED: ENOXAPARIN 40 MG/0.4 ML SYRINGE SQ SCH (16:00)
--- NOTE | 2019-07-26 17:31 | P.PN ---
Subjective Progress Note Date: 07/26/19 Principal diagnosis: COVID 19 pneumonia Patient is a 44-year-old -[place] female past medical history of fibromyalgia who presented as a transfer from [facility] as part of the Covid 19 relief process. Patient had been having symptoms starting on July 05 and she was tested for Covid which came back on July 16 as positive. She initially been hospitalized for one day. She went back to the hospital on 07/18/2019 due to increased work of breathing. She was found to be hypoxic at 87% on room air, chest x-ray showed diffuse bilateral infiltrates, white blood cell count 16, platelets 511, lymphocytes 3.14, d-dimer 2.5 and BNP and troponins were negative. She was subsequently transferred here. She was started on hydroxychloroquine, doxycycline for possible atypical pneumonia and Rocephin for possible secondary bacterial infection. On her O2 requirements increased and pul was consulted they agreed with plan of care. On the morning of she was having increased work of breathing and her heart rate was up to 154. She was given 2 1L bolus with good result. WBC increasing and CXR with more consolidation her ABX were changed to zosyn and vanco. She had worsening respiratory distress. She was subsequently transferred to the ICU. She was in tubated on the morning of 07/21/2019. She was started on a Nimbex, propofol, and fentanyl. She was requiring large amounts of sedation. Patient was seen and examined. Extubated today. Complains of hearing voices and seeing things but alert and oriented, likely related to delirium from prolonged ICU stay. Hemoglobin improved after one PRBC from 7-9 with 1 PRBC. Chest x-ray is stable. Chest ultrasound shows 8.2 cm pocket size effusion on the left side. Plans for possible CT chest tomorrow. Discussed with nursing, otherwise no events. Leukocytosis improving. Liver enzymes are steady. La ctate dehydrogenase, CRP slowly down trending. Objective - Vital Signs Vital signs: Vital Signs Temp 99.9 F H 07/26/19 15:00 Pulse 85 07/26/19 16:00 Resp 31 H 07/26/19 16:00 BP 161/87 07/23/19 15:55 Pulse Ox 95 07/26/19 16:00 Intake & Output 07/25/19 07/26/19 07/26/19 18:59 06:59 18:59 Intake Total 8762.846 7172.490 702.547 Output Total 1720 1700 2765 Balance -226.417 -172.510 -2062.453 Weight 88.5 kg 87 kg Intake: IV 736 733 477 .9 600 600 450 Cefepime 2 gm In Sodium 100 100 Chloride 0.9% 100 ml @ 200 mls/hr IVPB Q12HR [facility] Rx#:[id number] pressure bag 36 33 27 Intake, IV Titration 586.583 512.490 109.547 Amount Clevidipine Butyrate 25 50 35.833 mg In Empty Bag 1 bag @ 1 MG/HR 2 mls/hr IV .Q24H [facility] Rx#:[id number] Propofol 1,000 mg In 371.243 281.077 57.437 Empty Bag 1 bag @ Titrate IV .Q0M [facility] Rx#: [id number] fentaNYL (PF) 1,000 mcg 165.34 195.58 52.11 In Sodium Chloride 0.9% 80 ml @ 1 MCG/KG/HR 8.1 mls/hr IV .[id number] [facility] Rx #:[id number] Tube Feeding 141 192 16 Lipid 100 Cefepime 2 gm In Sodium 100 Chloride 0.9% 100 ml @ 200 mls/hr IVPB Q12HR [facility] Rx#:[id number] Other 30 90 Output: Urine 1720 1700 2765 Other: Voiding Method Indwelling Catheter Indwelling Catheter Indwelling Catheter # Voids 1 # Bowel Movements 1 ABP, PAP, CO, CI - Last Documented Arterial Blood Pressure 163/76 - Exam General: [non toxic], [no distress], [appears at stated age] Derm: [warm], [dry] Head: [atraumatic], [normocephalic], [symmetric] Eyes: [EOMI], [no lid lag], [anicteric sclera] Mouth: [no lip lesion], [mucus membranes moist] Cardiovascular: [S1S2 reg], [no murmur], [positive DP pulse bilateral], Lungs: [Coarse breath sounds bilateral], [no rhonchi, no rales] , [no accessory muscle use] Abdominal: [soft], [ nontender to palpation], [no guarding], [no appreciable organomegaly] Ext: [no gross muscle atrophy], [no edema], [no contractures] Neuro: [No focal neurological deficits] Psych: [Alert and oriented 2-3] - Labs CBC & Chem 7: 07/26/19 04:00 07/26/19 04:00 Labs: Abnormal Lab Results - Last 24 Hours (Table) 07/25/19 07/25/19 07/26/19 Range/Units 18:25 23:42 04:00 WBC 18.5 H (3.8-10.6) k/uL RBC 3.01 L (3.80-5.40) m/uL Hgb 9.0 L (11.4-16.0) gm/dL Hct 28.1 L (34.0-46.0) % Plt Count 486 H (150-450) k/uL Neutrophils # (Manual) 13.30 H (1.3-7.7) k/uL Monocytes # (Manual) 1.30 H (0-1.0) k/uL Metamyelocytes # (Man) 0.74 H (0) k/uL Myelocytes # (Manual) 0.37 H (0) k/uL Nucleated RBCs 3 H (0-0) /100 WBC ABG pH (7.35-7.45) ABG pCO2 (35-45) mmHg ABG pO2 (83-108) mmHg ABG HCO3 (21-25) mmol/L ABG Total CO2 (19-24) mmol/L ABG O2 Saturation (94-97) % Sodium (137-145) mmol/L Potassium (3.5-5.1) mmol/L Creatinine (0.52-1.04) mg/dL Glucose (74-99) mg/dL POC Glucose (mg/dL) 129 H 109 H (75-99) mg/dL Calcium (8.4-10.2) mg/dL Ferritin (10.0-291.0) ng/mL AST (14-36) U/L ALT (4-34) U/L Lactate Dehydrogenase (313-618) U/L Creatine Kinase (30-135) U/L C-Reactive Protein (<10.0) mg/L Total Protein (6.3-8.2) g/dL Albumin (3.5-5.0) g/dL 07/26/19 07/26/19 07/26/19 Range/Units 04:00 07:30 09:04 WBC (3.8-10.6) k/uL RBC (3.80-5.40) m/uL Hgb (11.4-16.0) gm/dL Hct (34.0-46.0) % Plt Count (150-450) k/uL Neutrophils # (Manual) (1.3-7.7) k/uL Monocytes # (Manual) (0-1.0) k/uL Metamyelocytes # (Man) (0) k/uL Myelocytes # (Manual) (0) k/uL Nucleated RBCs (0-0) /100 WBC ABG pH 7.55 H (7.35-7.45) ABG pCO2 31 L (35-45) mmHg ABG pO2 155 H 126 H (83-108) mmHg ABG HCO3 27 H 27 H (21-25) mmol/L ABG Total CO2 27 H 29 H (19-24) mmol/L ABG O2 Saturation 99.8 H 99.1 H (94-97) % Sodium 136 L (137-145) mmol/L Potassium 3.3 L (3.5-5.1) mmol/L Creatinine 0.48 L (0.52-1.04) mg/dL Glucose 106 H (74-99) mg/dL POC Glucose (mg/dL) (75-99) mg/dL Calcium 8.2 L (8.4-10.2) mg/dL Ferritin 989.7 H (10.0-291.0) ng/mL AST 51 H (14-36) U/L ALT 45 H (4-34) U/L Lactate Dehydrogenase 953 H (313-618) U/L Creatine Kinase 167 H (30-135) U/L C-Reactive Protein 41.8 H (<10.0) mg/L Total Protein 5.6 L (6.3-8.2) g/dL Albumin 2.5 L (3.5-5.0) g/dL 07/26/19 Range/Units 11:50 WBC (3.8-10.6) k/uL RBC (3.80-5.40) m/uL Hgb (11.4-16.0) gm/dL Hct (34.0-46.0) % Plt Count (150-450) k/uL Neutrophils # (Manual) (1.3-7.7) k/uL Monocytes # (Manual) (0-1.0) k/uL Metamyelocytes # (Man) (0) k/uL Myelocytes # (Manual) (0) k/uL Nucleated RBCs (0-0) /100 WBC ABG pH (7.35-7.45) ABG pCO2 (35-45) mmHg ABG pO2 (83-108) mmHg ABG HCO3 (21-25) mmol/L ABG Total CO2 (19-24) mmol/L ABG O2 Saturation (94-97) % Sodium (137-145) mmol/L Potassium (3.5-5.1) mmol/L Creatinine (0.52-1.04) mg/dL Glucose (74-99) mg/dL POC Glucose (mg/dL) 124 H (75-99) mg/dL Calcium (8.4-10.2) mg/dL Ferritin (10.0-291.0) ng/mL AST (14-36) U/L ALT (4-34) U/L Lactate Dehydrogenase (313-618) U/L Creatine Kinase (30-135) U/L C-Reactive Protein (<10.0) mg/L Total Protein (6.3-8.2) g/dL Albumin (3.5-5.0) g/dL Assessment and Plan Assessment: left lower lobe pneumonia with bilateral pneumonitis suspect secondary bacterial infection with COVID-19 positive infection, acute hypoxic respiratory failure, sepsis, ARDS -Vanco discontinued by infectious disease and cefepime continued for concerns of hospital-acquired pneumonia -Trend CRP, LDH, pro-calcitonin, CPK, and ferritin -Influenza negative -Procalcitonin greatly positive -Daily CXR - hydorxychloriquine, zinc -Gentle IV fluids Hypokalemia -Potassium 3.3. Plans to replace via protocol. Anemia, worsening -Hemoglobin stable after transfusing 1 unit PRBC 07/23/2019 -Suspect dilutional, MCV and MCH increasing Thrombocytosis -Suspect reactive -Follow CBC Costochondritis -Tylenol and Toradol for pain control Fibromyalgia -Supportive care DVT prophylaxis: Heparin Discussed with: nursing Anticipated discharge: Undetermined Anticipated discharge place: home A total of 35 minutes was spent on the care of this complex patient more than 50% of the time was spent in counseling and care coordination.
[2019-07-26 18:06] LABS: Glucose,Whole Blood 88 mg/dL (75-99)
--- NOTE | 2019-07-26 22:47 | PN ---
PROGRESS NOTE DATE OF SERVICE: 07/26/2019 REASON FOR FOLLOWUP: Acute COVID-19 pneumonia. INTERVAL HISTORY: The patient did have a fever of 100.4 this morning. The patient has been afebrile since then. The patient has been extubated. She is breathing comfortably. Did have mild cough, though. No nausea, no vomiting. No abdominal pain or diarrhea. PHYSICAL EXAMINATION: Blood pressure 140/69 with a pulse of 80, temperature 98.6. She is 100% on 4 L nasal cannula. General description is a middle-aged female lying in bed in no distress. RESPIRATORY SYSTEM: Unlabored breathing with decreased breath sounds at the base. No wheeze. HEART: S1, S2. Regular rate and rhythm. ABDOMEN: Soft. No tenderness. LABS/IMAGING: Hemoglobin 9 with a white count of 18.5. BUN of 14, creatinine 0.48. Chest x-ray with left greater than right basilar acute infiltrate; cannot exclude small effusion. DIAGNOSTIC IMPRESSION AND PLAN: Patient with acute COVID-19 pneumonia. The patient now has persistent low-grade fever with concern for left-sided pneumonia with effusion and question of loculated fluid. CT of the chest will be ordered to make sure no evidence of any loculated pleural fluid. The patient is covered with cefepime; to continue. She has completed her 5-day course of Plaquenil. Monitor clinical course closely. MMODL / IJN: [id number] /
[2019-07-26 23:49] LABS: Glucose,Whole Blood 110 mg/dL (75-99)
[2019-07-27] MEDS: CLEVIDIPINE BUTYRATE 25 MG in EMPTY BAG 1 BAG IV SCH ×2 (03:41→23:30)
[2019-07-27] MEDS: SODIUM CHLORIDE 0.9% 1,000 ML IV SCH ×2 (03:43→23:54)
[2019-07-27] MEDS: INSULIN ASPART (NovoLOG) 100 UNIT/ML VIAL SQ SCH ×4 (03:44→18:35)
[2019-07-27 05:05] LABS: Basophils # (A) 0.1 k/uL (0-0.2); Basophils % (A) 0 %; Eosinophils # (A) 0.2 k/uL (0-0.7); Eosinophils % (A) 1 %; HCT 30.5 % (34.0-46.0); HGB 9.6 gm/dL (11.4-16.0); Hypochromasia Slight; Lymphocytes # (A) 2.3 k/uL (1.0-4.8); Lymphocytes % (A) 12 %; MCH 29.2 pg (25.0-35.0); MCHC 31.3 g/dL (31.0-37.0); MCV 93.3 fL (80.0-100.0); Mean Platelet Volume 7.3; Monocytes # (A) 1.2 k/uL (0-1.0); Monocytes % (A) 6 %; Neutrophils # (A) 15.8 k/uL (1.3-7.7); Neutrophils % (A) 79 %; Platelet Count 545 k/uL (150-450); RBC 3.27 m/uL (3.80-5.40); RDW 14.8 % (11.5-15.5)
[2019-07-27 05:20] LABS: ALT 71 U/L (4-34); AST 48 U/L (14-36); African American GFR (CKD) >90 (>60 ml/min/1.73 sqM); Albumin 2.8 g/dL (3.5-5.0); Alkaline Phosphatase 136 U/L (38-126); Anion Gap 5 mmol/L; Blood Urea Nitrogen 12 mg/dL (7-17); C Reactive Protein 74.7 mg/L (<10.0); Calcium 8.7 mg/dL (8.4-10.2); Carbon Dioxide 30 mmol/L (22-30); Chloride 99 mmol/L (98-107); Creatine Kinase 103 U/L (30-135); Glucose 98 mg/dL (74-99); LDH 1061 U/L (313-618); Non-African American GFR(CKD) >90 (>60 ml/min/1.73 sqM); Potassium 4.2 mmol/L (3.5-5.1); Sodium 134 mmol/L (137-145); Total Bilirubin 0.6 mg/dL (0.2-1.3); Total Protein 6.2 g/dL (6.3-8.2)
[2019-07-27 05:57] LABS: Glucose,Whole Blood 103 mg/dL (75-99)
--- NOTE | 2019-07-27 06:57 | XR ---
EXAMINATION TYPE: XR chest 1V portable DATE OF EXAM: 07/27/2019 HISTORY: Tube placement. REFERENCE: Previous study dated 07/26/2019. FINDINGS: The patient has been extubated. The NG tube is been removed. There is continuing left basilar airspace disease. There is a small amount of right basilar airspace disease. The heart is enlarged. I suspect small, bilateral effusions. The overall appearance is very similar to previous. IMPRESSION: NO SIGNIFICANT INTERVAL CHANGE IN THE APPEARANCE OF THE CHEST.
[2019-07-27] MEDS: CEFEPIME 2 GM in SODIUM CHLORIDE 0.9% 100 ML IVPB SCH (08:32)
[2019-07-27] MEDS: ENOXAPARIN 40 MG/0.4 ML SYRINGE SQ SCH ×2 (08:33→20:00)
[2019-07-27] MEDS: methylPREDNISolone SOD SUCCI 40 MG/ML 1 ML VIAL IV SCH ×2 (08:33→20:00)
[2019-07-27] MEDS: PANTOPRAZOLE 40 MG/10 ML VIAL IVP SCH (08:33)
[2019-07-27] MEDS: CHLORHEXIDINE GLUCONATE 15 ML CUP MUCOUS MEM SCH (08:33)
[2019-07-27] MEDS: ZINC SULFATE 220 MG CAP PO SCH (08:34)
[2019-07-27 11:18] LABS: Ferritin 1472.3 ng/mL (10.0-291.0)
--- NOTE | 2019-07-27 11:35 | CT ---
EXAMINATION TYPE: CT chest wo con DATE OF EXAM: 07/27/2019 COMPARISON: None. HISTORY: Pneumonia, Respiratory failure, COVID [address] DLP: 354.7 mGycm. Automated Exposure Control for Dose Reduction was Utilized. TECHNIQUE: CT scan of the thorax is performed without IV contrast. FINDINGS: There are peripheral groundglass opacities. There is dense consolidation in the lung bases, worse on the left than the right with air bronchograms. The heart is minimally enlarged. There is a small left-sided effusion. There is no pericardial fluid. There is no significant axillary, mediastinal or hilar adenopathy. Visualized portions of the upper abdomen are unremarkable. IMPRESSION: Bilateral lower lobe consolidation, worse on the left than the right with a small left-sided effusion and peripheral round glass opacities.
[2019-07-27 11:47] LABS: Glucose,Whole Blood 117 mg/dL (75-99)
--- NOTE | 2019-07-27 13:19 | P.PN ---
Subjective Progress Note Date: 07/27/19 Principal diagnosis: Acute hypoxic and hypercapnic respiratory failure secondary to acute covid 19 pneumonitis. Patient is a 44-year-old -[place] female past medical history of fibromyalgia who presented as a transfer from [facility] as part of the Covid 19 relief process. Patient had been having symptoms starting on July 05 and she was tested for Covid which came back on July 16 as positive. She initially been hospitalized for one day. She went back to the hospital on 07/18/2019 due to increased work of breathing. She was found to be hypoxic at 87% on room air, chest x-ray showed diffuse bilateral infiltrates, white blood cell count 16, platelets 511, lymphocytes 3.14, d-dimer 2.5 and BNP and troponins were negative. She was subsequently transferred here. She was started on hydroxychloroquine, doxycycline for possible atypical pneumonia and Rocephin for possible secondary bacterial infection. On her O2 requirements increased and pul was consulted they agreed with plan of care. On the morning of she was having increased work of breathing and her heart rate was up to 154. She was given 2 1L bolus with good result. WBC increasing and CXR with more consolidation her ABX were changed to zosyn and vanco. She had worsening respiratory distress. She was subsequently transferred to the ICU. She was intubated on the morning of 07/21/2019. She was started on a Nimbex, propofol, and fentanyl. She was requiring large amounts of sedation. Patient seen and examined at bedside. Currently sedated and paralyzed on vent. Discussed with nursing. Patient intubated this morning at approximately 9:30. Had central line and arterial line placed. On 07/22/2019 patient seen in follow-up in the intensive care unit. She is sedated, intubated, on mechanical ventilator, current vent settings are assist- control with a rate of 26, tidal vital 400, FiO2 40% and PEEP of 5, this morning his blood gases revealed pO2 175, pCO2 of 30, pH of 7.40, this was done on FiO2 of 40%. Today's blood work shows persistent leukocytosis, with white blood cell count of 22.1, hemoglobin is 7.4, lymphopenia with lymphocyte count is 0.7, neutrophilia with neutrophil count of 20.6, d-dimer slightly trending down, 2.04, sodium is 139, potassium is 4.2, chloride is 111, CO2 is 18, BUN of 9, creatinine 0.48. Ferritin remains elevated at 1267, CRP down slightly, at 345, pro-calcitonin was greater than 100. Influenza screen was negative. Blood cult ures were negative, sputum culture is pending. Fever pattern has improved, and last episode of fever was yesterday in the afternoon with a temp of 99.9F, afebrile overnight. Patient is currently on combination of cefepime, and vancomycin for antibiotic coverage, continues on IV Solu-Medrol, hydro xychloroquine. Today's chest x-ray shows some improvement in the right perihilar and infrahilar interstitial airspace disease, and persistent confluent left midlung and left basilar opacity with suspected trace to small left pleural effusion. Current IVs include 0.9 normal saline at a rate of 100 ML per hour, Diprivan is a 40 mics per kilo per minute, fentanyl at 1.5 mics per kilo per minute, Nimbex is at 2 mics per kilo per minute. No vasoactive drips. Reevaluated today on 07/23/19, patient remains in the intensive care unit, intubated and mechanically ventilated. Present vent settings are assist control rate of 26 tidal volume 400 FiO2 40% and PEEP is 12. Patient has a peak airway pressure of 35 plateau pressure of 27. Patient is still on fentanyl Nimbex and on propofol. Propofol is at 60 mcg/kg/m, fentanyl is at 2 mcg/kg/h, and Nimbex is at 1 mcg/kg. Her FiO2 was decreased down to 35%. And I plan to wean and possibly discontinue Nimbex today. CBC continues to show leukocytosis with WBC count of 20.4 hemoglobin is 7 and I plan to give the patient a unit of packed RBCs. Her ABG showed a pO2 of 138 pCO2 of 31 pH of 7.45. FiO2 was decreased down to 35%. Basic metabolic profile is normal renal profile is normal. LDH is down to 707 C-reactive protein is 167 pro-calcitonin is high, hence patient is being covered with antibiotics for superimposed bacterial infection. Chest x- ray continues to show significant left lower lobe consolidation, possibly associated with pleural effusion hence we will likely recommend ultrasound of the chest if does not improve in the next 24 hours. Reevaluated today on 07/24/19, patient remains in the ICU, intubated and mechanically ventilated. Ventilator settings are assist control of 26 tidal volume 400 FiO2 is 35% PEEP is at 12. Decreased down to 8. Her markers are basically about the same. Chest x-ray continues to show dense consolidation in the left lower lobe, possible pleural effusion. However ultrasound of the chest did not show the effusion isn't large enough or safe the Pap at this point. Hence I recommended no thoracentesis at this point. ABG today showed a pO2 of 95 pCO2 of 33 pH of 7.46. And this was on 35% FiO2 and PEEP of 12. WBC count is 20.5 hemoglobin is 8.3 electrolytes in the upper profile are normal. Ferritin remains elevated at 1325 LDH is 783, improving, C-reactive protein is 64.3. Pro-calcitonin remains high at 8.04. Patient remains on cefepime and vancomycin. Today the patient remains on Nimbex fentanyl and propofol at 60 mcg/kg/m, Nimbex is at 2 mcg/kg/m, and fentanyl is 2 mcg/kg/h. Remains on IV fluid of 0.9 normal saline S3 0 mL per hour. The ventilator settings changes today included increase FiO2 to 40% and decrease PEEP to 8. Planning to hold Nimbex, however the patient did not tolerate being off Nimbex, had to be placed back on Nimbex because of extreme agitation and tachypnea and could not be properly ventilated off Nimbex Patient was reevaluated today on 07/25/19, patient has covid 19 pneumonitis, remains intubated, and mechanically ventilated. Her ventilator settings are assist control rate of 26 tidal volume is 400 FiO2 is 40% PEEP is 8. Patient remains on multiple drips including Nimbex at 2 mcg/kg/m propofol at 50 mcg/kg/m, and fentanyl at 2 mcg/kg/m. Multiple attempts have been made yesterday and today to discontinue Nimbex and hopefully maintain the patient on propofol and fentanyl. However the patient seems to get extremely agitated, tachypneic, tachycardic, hypertensive, and have not been able to wean off Nimbex. I will give the patient another trial today. And if could not wean off the Nimbex, at least will cut down the propofol to 40 mcg/kg/m cut down the fentanyl to 1 mcg/kg per hour. Chest x-ray continues to show by basilar infi ltrates with slight improvement. Inflammatory markers are actually showing improvement LDH is down to 1987 and C-reactive protein is 45.6 pro-calcitonin is a bit high at 4.61. ABG today showed a pO2 of 70 pCO2 of 33 pH of 7.54. Electrolytes and renal profile are normal. Liver enzymes are borderline elevated. WBC count is 21.7 hemoglobin is 9.2 Reevaluated today on 07/26/19, patient remains in the ICU, intubated, mechanically ventilated. Her ventilator settings are assist control rate of 26 tidal volume is 400 FiO2 is 40% and PEEP is at 8. Patient is now off fentanyl and off propofol, and she is awake. Does not seem to be in any distress, she is presently on assist control mode of mechanical ventilation, hence after evaluating the patient and evaluating her chest x-ray as well as her labs, I recommended placing the patient on a pressure support of 8 and CPAP. Discontinued completely her fentanyl propofol, and repeated and ABG after half an hour of being on pressure support and CPAP. Then I recommended extubating the patient. Chest x-ray showing improved central opacities bilaterally nonetheless she continues to have some opacities in the left midlung and right lower lobe. But improved compared to baseline. ABG today showed a pO2 of 126 pCO2 of 39 pH of 7.45. And this was on pressure support of 8 and CPAP. Basic metabolic profile was noted to be normal. CBC was normal. Inflammatory markers seem to be improving including LDH, C-reactive protein, and ferritin. Patient was reevaluated today on 07/27/19,patient was extubated yesterday, remains off mechanical ventilation. Tolerated the extubation extremely well. She is actually on 3 L nasal cannula, and her O2 saturation is 98%. Chest x-ray and CT of the chest continues to show left lower lobe consolidation, very small tiny effusion, not enough to consider any diagnostic or therapeutic thoracentesis based on the CT of the chest. Patient has mostly consolidation in the left lower lobe, and very minimal effusion if any. Patient remains on antibiotics, finished her treatment for covid 19 pneumonitis.her d-dimer today is 5.07 her ferritin is 1472 LDH remains a bit high at 1061. And C-reactive protein is 74.7., not much globe changer the last couple of days, but clinically the patient is doing much better.WBC count remains high at 20.0. Hemoglobin is 9.6.patient remains on cefepime. Objective - Vital Signs Vital signs: Vital Signs Temp 98.4 F 07/27/19 08:00 Pulse 75 07/27/19 08:00 Resp 21 07/27/19 08:00 BP 161/87 07/23/19 15:55 Pulse Ox 98 07/27/19 08:00 Intake & Output 07/26/19 07/27/19 07/27/19 18:59 06:59 18:59 Intake Total 808.547 836 259 Output Total 3465 2450 220 Balance -2656.453 -1614 39 Intake: IV 583 636 259 .9 550 600 150 Cefepime 2 gm In Sodium 100 Chloride 0.9% 100 ml @ 200 mls/hr IVPB Q12HR [facility] Rx#:[id number] pressure bag 33 36 9 Intake, IV Titration 109.547 Amount Propofol 1,000 mg In 57.437 Empty Bag 1 bag @ Titrate IV .Q0M [facility] Rx#: [id number] fentaNYL (PF) 1,000 mcg 52.11 In Sodium Chloride 0.9% 80 ml @ 1 MCG/KG/HR 8.1 mls/hr IV .[id number] [facility] Rx #:[id number] Oral 200 Tube Feeding 16 Lipid 100 Cefepime 2 gm In Sodium 100 Chloride 0.9% 100 ml @ 200 mls/hr IVPB Q12HR [facility] Rx#:[id number] Output: Urine 3465 2450 220 Other: Voiding Method Indwelling Catheter Indwelling Catheter Indwelling Catheter # Voids 1 # Bowel Movements 1 ABP, PAP, CO, CI - Last Documented Arterial Blood Pressure 143/70 - Exam GENERAL EXAM: 44-year-old -Congolese female, sitting in bed, in no distress, on few liters nasal cannula.O2 saturation is 98% on 3 L. HEENT: PERRLA, EOMI, no icterus, no neck masses, no JVD, no stridor, NECK: No masses, no JVD, no thyroid enlargement, no adenopathy. CHEST: No chest wall deformity. Symmetrical expansion. LUNGS: Equal air entry with no crackles, wheeze, rhonchi or dullness.diminished breath sounds at the left base mostly. CVS: Regular rate and rhythm, normal S1 and S2, no gallops, no murmurs, no rubs ABDOMEN: Soft, nontender. No hepatosplenomegaly, normal bowel sounds, no guarding or rigidity. EXTREMITIES: No clubbing, no edema, no cyanosis, 2+ pulses and upper and lower extremities. SPINE: No scoliosis or deformity SKIN: No rashes CENTRAL NERVOUS SYSTEM: alert oriented 3, no gross focal neurologic deficits. Psychiatric: Normal mood affect and normal mental status examination - Labs CBC & Chem 7: 07/27/19 04:35 07/27/19 04:35 Labs: Abnormal Lab Results - Last 24 Hours (Table) 07/26/19 07/27/19 07/27/19 Range/Units 23:47 04:35 04:35 WBC 20.0 H (3.8-10.6) k/uL RBC 3.27 L (3.80-5.40) m/uL Hgb 9.6 L (11.4-16.0) gm/dL Hct 30.5 L (34.0-46.0) % Plt Count 545 H (150-450) k/uL Neutrophils # 15.8 H (1.3-7.7) k/uL Monocytes # 1.2 H (0-1.0) k/uL D-Dimer (<0.60) mg/L FEU Sodium 134 L (137-145) mmol/L Creatinine 0.44 L (0.52-1.04) mg/dL POC Glucose (mg/dL) 110 H (75-99) mg/dL Ferritin 1472.3 H (10.0-291.0) ng/mL AST 48 H (14-36) U/L ALT 71 H (4-34) U/L Alkaline Phosphatase 136 H (38-126) U/L Lactate Dehydrogenase 1061 H (313-618) U/L C-Reactive Protein 74.7 H (<10.0) mg/L Total Protein 6.2 L (6.3-8.2) g/dL Albumin 2.8 L (3.5-5.0) g/dL 07/27/19 07/27/19 07/27/19 Range/Units 04:35 05:57 11:44 WBC (3.8-10.6) k/uL RBC (3.80-5.40) m/uL Hgb (11.4-16.0) gm/dL Hct (34.0-46.0) % Plt Count (150-450) k/uL Neutrophils # (1.3-7.7) k/uL Monocytes # (0-1.0) k/uL D-Dimer 5.07 H (<0.60) mg/L FEU Sodium (137-145) mmol/L Creatinine (0.52-1.04) mg/dL POC Glucose (mg/dL) 103 H 117 H (75-99) mg/dL Ferritin (10.0-291.0) ng/mL AST (14-36) U/L ALT (4-34) U/L Alkaline Phosphatase (38-126) U/L Lactate Dehydrogenase (313-618) U/L C-Reactive Protein (<10.0) mg/L Total Protein (6.3-8.2) g/dL Albumin (3.5-5.0) g/dL Assessment and Plan Assessment: Impression: Acute hypoxic and hypercapnic respiratory failure secondary to covid 19 pneumonitis, requiring intubation and mechanical ventilation.extubated on 07/26/19. And tolerated extubation well. Acute covid 19 pneumonitis recovering nicely. Left lower lobe consolidation, CT of the chest continues to show by basilar consolidation, left greater than right, and not much fluid to consider thoracentesis therapeutic or diagnostic. History of fibromyalgia. History of tubal ligation and breast reduction. Recommendation: continue to monitor the patient in the ICU for the next 24 hours. advanced diet as tolerated. Incentive spirometry. Physical therapy to evaluate Continue GI and DVT prophylaxis. Continue antibiotics. as per infectious disease on the case. consider discharge planning early next week by Monday. We'll continue to follow. Time with Patient: Less than 30
--- NOTE | 2019-07-27 15:45 | P.PN ---
Subjective Progress Note Date: 07/27/19 Principal diagnosis: COVID 19 pneumonia Patient is a 44-year-old -[place] female past medical history of fibromyalgia who presented as a transfer from [facility] as part of the Covid 19 relief process. Patient had been having symptoms starting on July 05 and she was tested for Covid which came back on July 16 as positive. She initially been hospitalized for one day. She went back to the hospital on 07/18/2019 due to increased work of breathing. She was found to be hypoxic at 87% on room air, chest x-ray showed diffuse bilateral infiltrates, white blood cell count 16, platelets 511, lymphocytes 3.14, d-dimer 2.5 and BNP and troponins were negative. She was subsequently transferred here. She was started on hydroxychloroquine, doxycycline for possible atypical pneumonia and Rocephin for possible secondary bacterial infection. On her O2 requirements increased and pul was consulted they agreed with plan of care. On the morning of she was having increased work of breathing and her heart rate was up to 154. She was given 2 1L bolus with good result. WBC increasing and CXR with more consolidation her ABX were changed to zosyn and vanco. She had worsening respiratory distress. She was subsequently transferred to the ICU. She was in tubated on the morning of 07/21/2019. She was started on a Nimbex, propofol, and fentanyl. She was requiring large amounts of sedation. Infectious disease was consulted and discontinued vancomycin and Zosyn and continue the patient on cefepime. She completed her course of hydroxychloroquine. She was given intermittent Lasix for diuresis. Her hemoglobin down trended to 7 on 07/23/2019 for which she was given 1 unit PRBC. Her hemoglobin trended up to 9.6 and was stable. She continued to be on the vent and underwent daily sedation holidays until she was extubated on 07/26/2019. She did require clevidipine drip for management of her blood pressure. Chest ultrasound was done which showed an 8.2 cm pocket sized effusion on the left side. CT of the chest was done which showed bilateral lower lobe consolidation and small left-sided effusion with groundglass opacities. Patient was seen and examined. No acute events overnight. Currently on 3 L nasal cannula saturating greater than 95%. She has no complaints today. She denies any chest pain, shortness of breath or palpitations. No nausea or vomiting. No fever or chills. Able to tell me what year it is. Also recalls the current president. Objective - Vital Signs Vital signs: Vital Signs Temp 98.4 F 07/27/19 08:00 Pulse 75 07/27/19 08:00 Resp 21 07/27/19 08:00 BP 161/87 07/23/19 15:55 Pulse Ox 98 07/27/19 08:00 Intake & Output 07/26/19 07/27/19 07/27/19 18:59 06:59 18:59 Intake Total 808.547 836 259 Output Total 3465 2450 220 Balance -2656.453 -1614 39 Intake: IV 583 636 259 .9 550 600 150 Cefepime 2 gm In Sodium 100 Chloride 0.9% 100 ml @ 200 mls/hr IVPB Q12HR [facility] Rx#:[id number] pressure bag 33 36 9 Intake, IV Titration 109.547 Amount Propofol 1,000 mg In 57.437 Empty Bag 1 bag @ Titrate IV .Q0M [facility] Rx#: [id number] fentaNYL (PF) 1,000 mcg 52.11 In Sodium Chloride 0.9% 80 ml @ 1 MCG/KG/HR 8.1 mls/hr IV .[id number] [facility] Rx #:[id number] Oral 200 Tube Feeding 16 Lipid 100 Cefepime 2 gm In Sodium 100 Chloride 0.9% 100 ml @ 200 mls/hr IVPB Q12HR [facility] Rx#:[id number] Output: Urine 3465 2450 220 Other: Voiding Method Indwelling Catheter Indwelling Catheter Indwelling Catheter # Voids 1 # Bowel Movements 1 ABP, PAP, CO, CI - Last Documented Arterial Blood Pressure 143/70 - Exam General: [non toxic], [no distress on 3 L since he], [appears at stated age] Derm: [warm], [dry] Head: [atraumatic], [normocephalic], [symmetric] Eyes: [EOMI], [no lid lag], [anicteric sclera] Mouth: [no lip lesion], [mucus membranes moist] Cardiovascular: [S1S2 reg], [no murmur], [positive DP pulse bilateral], Lungs: [Decreased breath sounds bilateral], [no rhonchi, no rales] , [no accessory muscle use] Abdominal: [soft], [ nontender to palpation], [no guarding], [no appreciable organomegaly] Ext: [no gross muscle atrophy], [no edema], [no contractures] Neuro: [No focal neurological deficits] Psych: [Alert and oriented 2-3] - Labs CBC & Chem 7: 07/27/19 04:35 07/27/19 04:35 Labs: Abnormal Lab Results - Last 24 Hours (Table) 07/26/19 07/26/19 07/26/19 Range/Units 04:00 11:50 23:47 WBC (3.8-10.6) k/uL RBC (3.80-5.40) m/uL Hgb (11.4-16.0) gm/dL Hct (34.0-46.0) % Plt Count (150-450) k/uL Neutrophils # (1.3-7.7) k/uL Monocytes # (0-1.0) k/uL D-Dimer (<0.60) mg/L FEU Sodium (137-145) mmol/L Creatinine (0.52-1.04) mg/dL POC Glucose (mg/dL) 124 H 110 H (75-99) mg/dL Ferritin 989.7 H (10.0-291.0) ng/mL AST (14-36) U/L ALT (4-34) U/L Alkaline Phosphatase (38-126) U/L Lactate Dehydrogenase (313-618) U/L C-Reactive Protein (<10.0) mg/L Total Protein (6.3-8.2) g/dL Albumin (3.5-5.0) g/dL 07/27/19 07/27/19 07/27/19 Range/Units 04:35 04:35 04:35 WBC 20.0 H (3.8-10.6) k/uL RBC 3.27 L (3.80-5.40) m/uL Hgb 9.6 L (11.4-16.0) gm/dL Hct 30.5 L (34.0-46.0) % Plt Count 545 H (150-450) k/uL Neutrophils # 15.8 H (1.3-7.7) k/uL Monocytes # 1.2 H (0-1.0) k/uL D-Dimer 5.07 H (<0.60) mg/L FEU Sodium 134 L (137-145) mmol/L Creatinine 0.44 L (0.52-1.04) mg/dL POC Glucose (mg/dL) (75-99) mg/dL Ferritin (10.0-291.0) ng/mL AST 48 H (14-36) U/L ALT 71 H (4-34) U/L Alkaline Phosphatase 136 H (38-126) U/L Lactate Dehydrogenase 1061 H (313-618) U/L C-Reactive Protein 74.7 H (<10.0) mg/L Total Protein 6.2 L (6.3-8.2) g/dL Albumin 2.8 L (3.5-5.0) g/dL 07/27/19 Range/Units 05:57 WBC (3.8-10.6) k/uL RBC (3.80-5.40) m/uL Hgb (11.4-16.0) gm/dL Hct (34.0-46.0) % Plt Count (150-450) k/uL Neutrophils # (1.3-7.7) k/uL Monocytes # (0-1.0) k/uL D-Dimer (<0.60) mg/L FEU Sodium (137-145) mmol/L Creatinine (0.52-1.04) mg/dL POC Glucose (mg/dL) 103 H (75-99) mg/dL Ferritin (10.0-291.0) ng/mL AST (14-36) U/L ALT (4-34) U/L Alkaline Phosphatase (38-126) U/L Lactate Dehydrogenase (313-618) U/L C-Reactive Protein (<10.0) mg/L Total Protein (6.3-8.2) g/dL Albumin (3.5-5.0) g/dL Assessment and Plan Assessment: Left lower lobe pneumonia with bilateral pneumonitis suspect secondary bacterial infection with COVID-19 positive infection, acute hypoxic respiratory failure, sepsis, ARDS -Vanco and cefepime discontinued by infectious disease replaced with Zosyn for concerns of hospital-acquired/aspiration? pneumonia -Trend CRP, LDH, pro-calcitonin, CPK, and ferritin -Influenza negative -Procalcitonin greatly positive but downtrending -D-dimer greatly elevated, will discuss with pulmonology regarding therapeutic Lovenox dosing -Daily CXR -Course of hydroxychloroquine completed, continue zinc -Gentle IV fluids Anemia, worsening -Hemoglobin stable after transfusing 1 unit PRBC 07/23/2019 -Suspect dilutional, MCV and MCH increasing Thrombocytosis -Suspect reactive -Follow CBC Costochondritis -Tylenol and Toradol for pain control Fibromyalgia -Supportive care DVT prophylaxis: Lovenox Discussed with: nursing Anticipated discharge: Undetermined Anticipated discharge place: home A total of 35 minutes was spent on the care of this complex patient more than 50% of the time was spent in counseling and care coordination.
[2019-07-27] MEDS: PIPERACILLIN-TAZOBACTAM 3.375 GM in SODIUM CHLORIDE 0.9% 100 ML IVPB SCH ×2 (16:52→23:50)
[2019-07-27 18:10] LABS: Glucose,Whole Blood 86 mg/dL (75-99)
--- NOTE | 2019-07-27 18:50 | PN ---
PROGRESS NOTE DATE OF SERVICE: 07/27/2019 REASON FOR FOLLOWUP: Pneumonia. INTERVAL HISTORY: The patient is currently afebrile. He is still complaining of cough and is bringing up some blood-stained sputum. Some chest pain on the left side. No nausea, no vomiting. No abdominal pain or diarrhea. PHYSICAL EXAMINATION: On examination, her blood pressure is 135/68 with a pulse of 83, temperature 98.7. She is 98% on 3 L. general description is a middle-aged female lying in bed in no distress. Respiratory system: Unlabored breathing, decreased breath sounds in the bases. No wheeze. Heart S1, S2. Regular rate and rhythm. ABDOMEN: Soft. No tenderness. LABS: Hemoglobin is 9.8, white count 20,000. BUN of 12, creatinine 0.44. CT shows evidence of left lower lobe pneumonia. Some effusion, but no evidence of any loculation. DIAGNOSTIC IMPRESSION AND PLAN: 1. Patient with acute COVID-19 infection that has been adequately treated. 2. Patient now with left lower lobe pneumonia, possible bacterial, no evidence of any loculated fluid on the CT. We will try to obtain a sputum and adjust antibiotic to Zosyn and monitor clinical course closely. MMODL / IJN: [id number] /
[2019-07-28 00:13] LABS: Glucose,Whole Blood 115 mg/dL (75-99)
[2019-07-28] MEDS: INSULIN ASPART (NovoLOG) 100 UNIT/ML VIAL SQ SCH ×5 (02:42→20:12)
[2019-07-28 04:45] LABS: Basophils % (A) 0 %; Eosinophils # (A) 0.1 k/uL (0-0.7); Eosinophils % (A) 1 %; HCT 30.5 % (34.0-46.0); HGB 9.6 gm/dL (11.4-16.0); Hypochromasia Slight; Lymphocytes % (A) 12 %; MCH 29.6 pg (25.0-35.0); MCHC 31.6 g/dL (31.0-37.0); MCV 93.6 fL (80.0-100.0); Mean Platelet Volume 6.9; Monocytes # (A) 1.1 k/uL (0-1.0); Monocytes % (A) 7 %; Neutrophils # (A) 12.6 k/uL (1.3-7.7); Neutrophils % (A) 78 %; Platelet Count 532 k/uL (150-450); RBC 3.26 m/uL (3.80-5.40); RDW 14.8 % (11.5-15.5); WBC 16.2 k/uL (3.8-10.6)
[2019-07-28 05:00] LABS: ALT 67 U/L (4-34); AST 47 U/L (14-36); African American GFR (CKD) >90 (>60 ml/min/1.73 sqM); Albumin 2.9 g/dL (3.5-5.0); Alkaline Phosphatase 130 U/L (38-126); Anion Gap 5 mmol/L; Blood Urea Nitrogen 15 mg/dL (7-17); C Reactive Protein 45.7 mg/L (<10.0); Calcium 8.7 mg/dL (8.4-10.2); Carbon Dioxide 29 mmol/L (22-30); Chloride 101 mmol/L (98-107); Creatine Kinase 40 U/L (30-135); Glucose 109 mg/dL (74-99); LDH 862 U/L (313-618); Non-African American GFR(CKD) >90 (>60 ml/min/1.73 sqM); Potassium 4.5 mmol/L (3.5-5.1); Sodium 135 mmol/L (137-145); Total Bilirubin 0.7 mg/dL (0.2-1.3); Total Protein 6.3 g/dL (6.3-8.2)
[2019-07-28 06:40] LABS: Glucose,Whole Blood 105 mg/dL (75-99)
--- NOTE | 2019-07-28 06:58 | XR ---
EXAMINATION TYPE: XR chest 1V portable DATE OF EXAM: 07/28/2019 HISTORY: SOB. REFERENCE: Previous study dated 07/27/2019. FINDINGS: There continues be bibasilar airspace disease. There are bilateral effusions. Heart size up per limits of normal. IMPRESSION: NO SIGNIFICANT INTERVAL CHANGE IN THE APPEARANCE OF THE CHEST.
[2019-07-28] MEDS: PANTOPRAZOLE 40 MG/10 ML VIAL IVP SCH (08:51)
[2019-07-28] MEDS: ENOXAPARIN 40 MG/0.4 ML SYRINGE SQ SCH ×2 (08:51→20:07)
[2019-07-28] MEDS: PIPERACILLIN-TAZOBACTAM 3.375 GM in SODIUM CHLORIDE 0.9% 100 ML IVPB SCH ×3 (08:51→23:23)
[2019-07-28] MEDS: methylPREDNISolone SOD SUCCI 40 MG/ML 1 ML VIAL IV SCH ×2 (08:52→20:06)
[2019-07-28] MEDS: ZINC SULFATE 220 MG CAP PO SCH (08:52)
[2019-07-28 11:40] LABS: Glucose,Whole Blood 120 mg/dL (75-99)
--- NOTE | 2019-07-28 12:26 | P.PN ---
Subjective Progress Note Date: 07/28/19 Principal diagnosis: Acute hypoxic and hypercapnic respiratory failure secondary to acute covid 19 pneumonitis. Patient is a 44-year-old -[place] female past medical history of fibromyalgia who presented as a transfer from [facility] as part of the Covid 19 relief process. Patient had been having symptoms starting on July 05 and she was tested for Covid which came back on July 16 as positive. She initially been hospitalized for one day. She went back to the hospital on 07/18/2019 due to increased work of breathing. She was found to be hypoxic at 87% on room air, chest x-ray showed diffuse bilateral infiltrates, white blood cell count 16, platelets 511, lymphocytes 3.14, d-dimer 2.5 and BNP and troponins were negative. She was subsequently transferred here. She was started on hydroxychloroquine, doxycycline for possible atypical pneumonia and Rocephin for possible secondary bacterial infection. On her O2 requirements increased and pul was consulted they agreed with plan of care. On the morning of she was having increased work of breathing and her heart rate was up to 154. She was given 2 1L bolus with good result. WBC increasing and CXR with more consolidation her ABX were changed to zosyn and vanco. She had worsening respiratory distress. She was subsequently transferred to the ICU. She was intubated on the morning of 07/21/2019. She was started on a Nimbex, propofol, and fentanyl. She was requiring large amounts of sedation. Patient seen and examined at bedside. Currently sedated and paralyzed on vent. Discussed with nursing. Patient intubated this morning at approximately 9:30. Had central line and arterial line placed. On 07/22/2019 patient seen in follow-up in the intensive care unit. She is sedated, intubated, on mechanical ventilator, current vent settings are assist- control with a rate of 26, tidal vital 400, FiO2 40% and PEEP of 5, this morning his blood gases revealed pO2 175, pCO2 of 30, pH of 7.40, this was done on FiO2 of 40%. Today's blood work shows persistent leukocytosis, with white blood cell count of 22.1, hemoglobin is 7.4, lymphopenia with lymphocyte count is 0.7, neutrophilia with neutrophil count of 20.6, d-dimer slightly trending down, 2.04, sodium is 139, potassium is 4.2, chloride is 111, CO2 is 18, BUN of 9, creatinine 0.48. Ferritin remains elevated at 1267, CRP down slightly, at 345, pro-calcitonin was greater than 100. Influenza screen was negative. Blood cult ures were negative, sputum culture is pending. Fever pattern has improved, and last episode of fever was yesterday in the afternoon with a temp of 99.9F, afebrile overnight. Patient is currently on combination of cefepime, and vancomycin for antibiotic coverage, continues on IV Solu-Medrol, hydro xychloroquine. Today's chest x-ray shows some improvement in the right perihilar and infrahilar interstitial airspace disease, and persistent confluent left midlung and left basilar opacity with suspected trace to small left pleural effusion. Current IVs include 0.9 normal saline at a rate of 100 ML per hour, Diprivan is a 40 mics per kilo per minute, fentanyl at 1.5 mics per kilo per minute, Nimbex is at 2 mics per kilo per minute. No vasoactive drips. Reevaluated today on 07/23/19, patient remains in the intensive care unit, intubated and mechanically ventilated. Present vent settings are assist control rate of 26 tidal volume 400 FiO2 40% and PEEP is 12. Patient has a peak airway pressure of 35 plateau pressure of 27. Patient is still on fentanyl Nimbex and on propofol. Propofol is at 60 mcg/kg/m, fentanyl is at 2 mcg/kg/h, and Nimbex is at 1 mcg/kg. Her FiO2 was decreased down to 35%. And I plan to wean and possibly discontinue Nimbex today. CBC continues to show leukocytosis with WBC count of 20.4 hemoglobin is 7 and I plan to give the patient a unit of packed RBCs. Her ABG showed a pO2 of 138 pCO2 of 31 pH of 7.45. FiO2 was decreased down to 35%. Basic metabolic profile is normal renal profile is normal. LDH is down to 707 C-reactive protein is 167 pro-calcitonin is high, hence patient is being covered with antibiotics for superimposed bacterial infection. Chest x- ray continues to show significant left lower lobe consolidation, possibly associated with pleural effusion hence we will likely recommend ultrasound of the chest if does not improve in the next 24 hours. Reevaluated today on 07/24/19, patient remains in the ICU, intubated and mechanically ventilated. Ventilator settings are assist control of 26 tidal volume 400 FiO2 is 35% PEEP is at 12. Decreased down to 8. Her markers are basically about the same. Chest x-ray continues to show dense consolidation in the left lower lobe, possible pleural effusion. However ultrasound of the chest did not show the effusion isn't large enough or safe the Pap at this point. Hence I recommended no thoracentesis at this point. ABG today showed a pO2 of 95 pCO2 of 33 pH of 7.46. And this was on 35% FiO2 and PEEP of 12. WBC count is 20.5 hemoglobin is 8.3 electrolytes in the upper profile are normal. Ferritin remains elevated at 1325 LDH is 783, improving, C-reactive protein is 64.3. Pro-calcitonin remains high at 8.04. Patient remains on cefepime and vancomycin. Today the patient remains on Nimbex fentanyl and propofol at 60 mcg/kg/m, Nimbex is at 2 mcg/kg/m, and fentanyl is 2 mcg/kg/h. Remains on IV fluid of 0.9 normal saline S3 0 mL per hour. The ventilator settings changes today included increase FiO2 to 40% and decrease PEEP to 8. Planning to hold Nimbex, however the patient did not tolerate being off Nimbex, had to be placed back on Nimbex because of extreme agitation and tachypnea and could not be properly ventilated off Nimbex Patient was reevaluated today on 07/25/19, patient has covid 19 pneumonitis, remains intubated, and mechanically ventilated. Her ventilator settings are assist control rate of 26 tidal volume is 400 FiO2 is 40% PEEP is 8. Patient remains on multiple drips including Nimbex at 2 mcg/kg/m propofol at 50 mcg/kg/m, and fentanyl at 2 mcg/kg/m. Multiple attempts have been made yesterday and today to discontinue Nimbex and hopefully maintain the patient on propofol and fentanyl. However the patient seems to get extremely agitated, tachypneic, tachycardic, hypertensive, and have not been able to wean off Nimbex. I will give the patient another trial today. And if could not wean off the Nimbex, at least will cut down the propofol to 40 mcg/kg/m cut down the fentanyl to 1 mcg/kg per hour. Chest x-ray continues to show by basilar infi ltrates with slight improvement. Inflammatory markers are actually showing improvement LDH is down to 1987 and C-reactive protein is 45.6 pro-calcitonin is a bit high at 4.61. ABG today showed a pO2 of 70 pCO2 of 33 pH of 7.54. Electrolytes and renal profile are normal. Liver enzymes are borderline elevated. WBC count is 21.7 hemoglobin is 9.2 Reevaluated today on 07/26/19, patient remains in the ICU, intubated, mechanically ventilated. Her ventilator settings are assist control rate of 26 tidal volume is 400 FiO2 is 40% and PEEP is at 8. Patient is now off fentanyl and off propofol, and she is awake. Does not seem to be in any distress, she is presently on assist control mode of mechanical ventilation, hence after evaluating the patient and evaluating her chest x-ray as well as her labs, I recommended placing the patient on a pressure support of 8 and CPAP. Discontinued completely her fentanyl propofol, and repeated and ABG after half an hour of being on pressure support and CPAP. Then I recommended extubating the patient. Chest x-ray showing improved central opacities bilaterally nonetheless she continues to have some opacities in the left midlung and right lower lobe. But improved compared to baseline. ABG today showed a pO2 of 126 pCO2 of 39 pH of 7.45. And this was on pressure support of 8 and CPAP. Basic metabolic profile was noted to be normal. CBC was normal. Inflammatory markers seem to be improving including LDH, C-reactive protein, and ferritin. Patient was reevaluated today on 07/27/19,patient was extubated yesterday, remains off mechanical ventilation. Tolerated the extubation extremely well. She is actually on 3 L nasal cannula, and her O2 saturation is 98%. Chest x-ray and CT of the chest continues to show left lower lobe consolidation, very small tiny effusion, not enough to consider any diagnostic or therapeutic thoracentesis based on the CT of the chest. Patient has mostly consolidation in the left lower lobe, and very minimal effusion if any. Patient remains on antibiotics, finished her treatment for covid 19 pneumonitis.her d-dimer today is 5.07 her ferritin is 1472 LDH remains a bit high at 1061. And C-reactive protein is 74.7., not much [employer] the last couple of days, but clinically the patient is doing much better.WBC count remains high at 20.0. Hemoglobin is 9.6.patient remains on cefepime. Reevaluated today on 07/28/19, patient tolerated extubation for the last 3 days now. Patient remains in the ICU, on 2 L nasal cannula, O2 saturation is 98%. Chest x-ray continues to show some left lower lobe consolidation. No evidence of significant pleural effusion or empyema. Patient is tolerating oral diet quite well, she seems to be in good spirits, and she denies any specific complaints. WBC count is down to 16.2 hemoglobin is 9.6. Lites are normal d- dimer remains elevated at 5.31. Patient remains on relatively higher dose of Lovenox. She is presently on 40 mg subcu every 12 hours. Objective - Vital Signs Vital signs: Vital Signs Temp 98.3 F 07/28/19 12:03 Pulse 89 07/28/19 12:03 Resp 20 07/28/19 12:03 BP 129/84 07/28/19 12:03 Pulse Ox 98 07/28/19 12:03 Intake & Output 07/27/19 07/28/19 07/28/19 18:59 06:59 18:59 Intake Total 736 636 482 Output Total 1295 900 340 Balance -559 -264 142 Weight 86.9 kg Intake: IV 736 636 362 .9 600 600 250 Cefepime 2 gm In Sodium 100 Chloride 0.9% 100 ml @ 200 mls/hr IVPB Q12HR [facility] Rx#:[id number] Piperacillin-Tazobactam 3 100 .375 gm In Sodium Chloride 0.9% 100 ml @ 25 mls/hr IVPB Q8HR [facility] Rx# :[id number] pressure bag 36 36 12 Oral 120 Output: Urine 1295 900 340 Other: Voiding Method Indwelling Catheter Indwelling Catheter Indwelling Catheter # Bowel Movements 1 ABP, PAP, CO, CI - Last Documented Arterial Blood Pressure 128/62 - Exam GENERAL EXAM: 44-year-old -[place] female, sitting in bed, in no distress, on 2 L nasal cannula, O2 saturation is 98% HEENT: PERRLA, EOMI, no icterus, no neck masses, no JVD, no stridor, NECK: No masses, no JVD, no thyroid enlargement, no adenopathy. CHEST: No chest wall deformity. Symmetrical expansion. LUNGS: Equal air entry with no crackles, wheeze, rhonchi or dullness.diminished breath sounds at the left base mostly. CVS: Regular rate and rhythm, normal S1 and S2, no gallops, no murmurs, no rubs ABDOMEN: Soft, nontender. No hepatosplenomegaly, normal bowel sounds, no guarding or rigidity. EXTREMITIES: No clubbing, no edema, no cyanosis, 2+ pulses and upper and lower extremities. SPINE: No scoliosis or deformity SKIN: No rashes CENTRAL NERVOUS SYSTEM: alert oriented 3, no gross focal neurologic deficits. Psychiatric: Normal mood affect and normal mental status examination - Labs CBC & Chem 7: 07/28/19 04:28 07/28/19 04:28 Labs: Abnormal Lab Results - Last 24 Hours (Table) 07/28/19 07/28/19 07/28/19 Range/Units 00:10 04:28 04:28 WBC 16.2 H (3.8-10.6) k/uL RBC 3.26 L (3.80-5.40) m/uL Hgb 9.6 L (11.4-16.0) gm/dL Hct 30.5 L (34.0-46.0) % Plt Count 532 H (150-450) k/uL Neutrophils # 12.6 H (1.3-7.7) k/uL Monocytes # 1.1 H (0-1.0) k/uL D-Dimer (<0.60) mg/L FEU Sodium 135 L (137-145) mmol/L Glucose 109 H (74-99) mg/dL POC Glucose (mg/dL) 115 H (75-99) mg/dL AST 47 H (14-36) U/L ALT 67 H (4-34) U/L Alkaline Phosphatase 130 H (38-126) U/L Lactate Dehydrogenase 862 H (313-618) U/L C-Reactive Protein 45.7 H (<10.0) mg/L Albumin 2.9 L (3.5-5.0) g/dL 07/28/19 07/28/19 07/28/19 Range/Units 04:28 06:39 11:38 WBC (3.8-10.6) k/uL RBC (3.80-5.40) m/uL Hgb (11.4-16.0) gm/dL Hct (34.0-46.0) % Plt Count (150-450) k/uL Neutrophils # (1.3-7.7) k/uL Monocytes # (0-1.0) k/uL D-Dimer 5.31 H (<0.60) mg/L FEU Sodium (137-145) mmol/L Glucose (74-99) mg/dL POC Glucose (mg/dL) 105 H 120 H (75-99) mg/dL AST (14-36) U/L ALT (4-34) U/L Alkaline Phosphatase (38-126) U/L Lactate Dehydrogenase (313-618) U/L C-Reactive Protein (<10.0) mg/L Albumin (3.5-5.0) g/dL Microbiology - Last 24 Hours (Table) 07/27/19 19:36 Gram Stain - Preliminary Sputum Sputum Culture - Preliminary Assessment and Plan Assessment: Impression: Acute hypoxic and hypercapnic respiratory failure secondary to covid 19 pneumonitis, requiring intubation and mechanical ventilation.extubated on 07/26/19. And tolerated extubation well. Acute covid 19 pneumonitis recovering nicely. Left lower lobe consolidation, CT of the chest continues to show by basilar consolidation, left greater than right, and not much fluid to consider thoracentesis therapeutic or diagnostic. History of fibromyalgia. History of tubal ligation and breast reduction. Recommendation: Transfer patient out of the ICU to regular medical floor. Continue droplet isolation. Consider discharge planning in the next 24-48 hours. Continue incentive spirometer. Continue physical therapy. Continue antibiotics as per infectious disease on the case. Continue to advance diet Will follow. Time with Patient: Less than 30
--- NOTE | 2019-07-28 13:57 | P.PN ---
Subjective Progress Note Date: 07/28/19 Principal diagnosis: COVID 19 pneumonia Patient is a 44-year-old -[place] female past medical history of fibromyalgia who presented as a transfer from [facility] as part of the Covid 19 relief process. Patient had been having symptoms starting on July 05 and she was tested for Covid which came back on July 16 as positive. She initially been hospitalized for one day. She went back to the hospital on 07/18/2019 due to increased work of breathing. She was found to be hypoxic at 87% on room air, chest x-ray showed diffuse bilateral infiltrates, white blood cell count 16, platelets 511, lymphocytes 3.14, d-dimer 2.5 and BNP and troponins were negative. She was subsequently transferred here. She was started on hydroxychloroquine, doxycycline for possible atypical pneumonia and Rocephin for possible secondary bacterial infection. On her O2 requirements increased and pul was consulted they agreed with plan of care. On the morning of she was having increased work of breathing and her heart rate was up to 154. She was given 2 1L bolus with good result. WBC increasing and CXR with more consolidation her ABX were changed to zosyn and vanco. She had worsening respiratory distress. She was subsequently transferred to the ICU. She was in tubated on the morning of 07/21/2019. She was started on a Nimbex, propofol, and fentanyl. She was requiring large amounts of sedation. Infectious disease was consulted and discontinued vancomycin and Zosyn and continue the patient on cefepime. She completed her course of hydroxychloroquine. She was given intermittent Lasix for diuresis. Her hemoglobin down trended to 7 on 07/23/2019 for which she was given 1 unit PRBC. Her hemoglobin trended up to 9.6 and was stable. She continued to be on the vent and underwent daily sedation holidays until she was extubated on 07/26/2019. She did require clevidipine drip for management of her blood pressure. Chest ultrasound was done which showed an 8.2 cm pocket sized effusion on the left side. CT of the chest was done which showed bilateral lower lobe consolidation and small left-sided effusion with groundglass opacities. Patient was seen and examined. No acute events overnight. Currently on 2 L nasal cannula saturating greater than 95%. She has no complaints today. She denies any chest pain, shortness of breath or palpitations. No nausea or vomiting. No fever or chills. Tolerating clear liquid diet well plans to transition to regular diet today. Leukocytosis downtrending from 20 to 16.2. Hemoglobin stable at 9.6. D-Dimer remains elevated at 5.31. Liver enzymes stable, LDH and CRP downtrending. Objective - Vital Signs Vital signs: Vital Signs Temp 98.3 F 07/28/19 12:03 Pulse 89 07/28/19 12:03 Resp 20 07/28/19 12:03 BP 129/84 07/28/19 12:03 Pulse Ox 98 07/28/19 12:03 Intake & Output 07/27/19 07/28/19 07/28/19 18:59 06:59 18:59 Intake Total 736 636 482 Output Total 1295 900 640 Balance -559 -264 -158 Weight 86.9 kg Intake: IV 736 636 362 .9 600 600 250 Cefepime 2 gm In Sodium 100 Chloride 0.9% 100 ml @ 200 mls/hr IVPB Q12HR [facility] Rx#:[id number] Piperacillin-Tazobactam 3 100 .375 gm In Sodium Chloride 0.9% 100 ml @ 25 mls/hr IVPB Q8HR [facility] Rx# :[id number] pressure bag 36 36 12 Oral 120 Output: Urine 1295 900 640 Other: Voiding Method Indwelling Catheter Indwelling Catheter Indwelling Catheter # Bowel Movements 1 ABP, PAP, CO, CI - Last Documented Arterial Blood Pressure 128/62 - Exam General: [non toxic], [no distress on 2 L NC], [appears at stated age] Derm: [warm], [dry] Head: [atraumatic], [normocephalic], [symmetric] Eyes: [EOMI], [no lid lag], [anicteric sclera] Mouth: [no lip lesion], [mucus membranes moist] Cardiovascular: [S1S2 reg], [no murmur], [positive DP pulse bilateral], Lungs: [Decreased breath sounds bilateral], [no rhonchi, no rales] , [no accessory muscle use] Abdominal: [soft], [ nontender to palpation], [no guarding], [no appreciable organomegaly] Ext: [no gross muscle atrophy], [no edema], [no contractures] Neuro: [No focal neurological deficits] Psych: [Alert and oriented 2-3] - Labs CBC & Chem 7: 07/28/19 04:28 07/28/19 04:28 Labs: Abnormal Lab Results - Last 24 Hours (Table) 07/28/19 07/28/19 07/28/19 Range/Units 00:10 04:28 04:28 WBC 16.2 H (3.8-10.6) k/uL RBC 3.26 L (3.80-5.40) m/uL Hgb 9.6 L (11.4-16.0) gm/dL Hct 30.5 L (34.0-46.0) % Plt Count 532 H (150-450) k/uL Neutrophils # 12.6 H (1.3-7.7) k/uL Monocytes # 1.1 H (0-1.0) k/uL D-Dimer (<0.60) mg/L FEU Sodium 135 L (137-145) mmol/L Glucose 109 H (74-99) mg/dL POC Glucose (mg/dL) 115 H (75-99) mg/dL AST 47 H (14-36) U/L ALT 67 H (4-34) U/L Alkaline Phosphatase 130 H (38-126) U/L Lactate Dehydrogenase 862 H (313-618) U/L C-Reactive Protein 45.7 H (<10.0) mg/L Albumin 2.9 L (3.5-5.0) g/dL 07/28/19 07/28/19 07/28/19 Range/Units 04:28 06:39 11:38 WBC (3.8-10.6) k/uL RBC (3.80-5.40) m/uL Hgb (11.4-16.0) gm/dL Hct (34.0-46.0) % Plt Count (150-450) k/uL Neutrophils # (1.3-7.7) k/uL Monocytes # (0-1.0) k/uL D-Dimer 5.31 H (<0.60) mg/L FEU Sodium (137-145) mmol/L Glucose (74-99) mg/dL POC Glucose (mg/dL) 105 H 120 H (75-99) mg/dL AST (14-36) U/L ALT (4-34) U/L Alkaline Phosphatase (38-126) U/L Lactate Dehydrogenase (313-618) U/L C-Reactive Protein (<10.0) mg/L Albumin (3.5-5.0) g/dL Microbiology - Last 24 Hours (Table) 07/27/19 19:36 Gram Stain - Preliminary Sputum Sputum Culture - Preliminary Assessment and Plan Assessment: Left lower lobe pneumonia with bilateral pneumonitis suspect secondary bacterial infection with COVID-19 positive infection, acute hypoxic respiratory failure, sepsis, ARDS -Vanco and cefepime discontinued by infectious disease replaced with Zosyn for concerns of hospital-acquired/aspiration? pneumonia -Trend CRP, LDH, pro-calcitonin, CPK, and ferritin -Influenza negative -Procalcitonin greatly positive but downtrending -D-dimer greatly elevated, on Lovenox 40 mg subcutaneous twice a day started by pulmonology -Daily CXR -Course of hydroxychloroquine completed, continue zinc -Gentle IV fluids Anemia, worsening -Hemoglobin stable after transfusing 1 unit PRBC 07/23/2019 -Suspect dilutional, MCV and MCH increasing Thrombocytosis -Suspect reactive -Follow CBC Costochondritis -Tylenol and Toradol for pain control Fibromyalgia -Supportive care [Patient extubated 07/26/2019 and progressing well. Patient to be downgraded to the floors today. She is on 2 L nasal cannula. She is pending clinical improvement. We'll need to discuss with social work regarding discharge planning. Likely DC in 1-2 days.]
[2019-07-28] MEDS: SODIUM CHLORIDE 0.9% 1,000 ML IV SCH (15:44)
[2019-07-28 16:35] LABS: Glucose,Whole Blood 106 mg/dL (75-99)
[2019-07-28 20:12] LABS: Glucose,Whole Blood 98 mg/dL (75-99)
[2019-07-28] MEDS ORDERED: KETOROLAC 30 MG/ML 1 ML VIAL IVP STA (20:42)
--- NOTE | 2019-07-28 22:40 | PN ---
PROGRESS NOTE DATE OF SERVICE: 07/28/2019 REASON FOR FOLLOWUP: Pneumonia. INTERVAL HISTORY: The patient is currently afebrile. She is breathing comfortably. The patient denies having any chest pain or shortness of breath. Minimal cough. No nausea, no vomiting. No abdominal pain or diarrhea. PHYSICAL EXAMINATION: Blood pressure 122/84 with a pulse of 91. Temperature 98.3. She is 98% on 2 L nasal cannula. General description is a middle-aged female lying in bed in no distress. Respiratory system: Unlabored breathing, decreased breath sounds at the base. No wheeze. HEART: S1, S2. Regular rate and rhythm. Abdomen soft. No tenderness. LABS: Hemoglobin is 9.6, white count 16.2, BUN of 15, creatinine 0.56. DIAGNOSTIC IMPRESSION AND PLAN: 1. Patient with acute Covid-19 pneumonia has been adequately treated. 2. The patient with left lower lobe pneumonia, possible Gram-negative. Sputum cultures are pending. Clinically responded to Zosyn to continue with adjusting better further based on culture report. 3. Continue supportive care. MMODL / IJN: [id number] /
[2019-07-29 07:18] LABS: Glucose,Whole Blood 114 mg/dL (75-99)
[2019-07-29] MEDS ORDERED: PANTOPRAZOLE 40 MG TABLET PO SCH (07:30)
[2019-07-29] MEDS: INSULIN ASPART (NovoLOG) 100 UNIT/ML VIAL SQ SCH ×2 (08:04→12:01)
[2019-07-29] MEDS: ZINC SULFATE 220 MG CAP PO SCH (08:12)
[2019-07-29] MEDS: methylPREDNISolone SOD SUCCI 40 MG/ML 1 ML VIAL IV SCH (08:13)
[2019-07-29] MEDS: ENOXAPARIN 40 MG/0.4 ML SYRINGE SQ SCH (08:13)
[2019-07-29] MEDS: PIPERACILLIN-TAZOBACTAM 3.375 GM in SODIUM CHLORIDE 0.9% 100 ML IVPB SCH (08:13)
[2019-07-29 10:39] LABS: Ferritin 1465.1 ng/mL (10.0-291.0)
[2019-07-29 11:21] VITALS: TEMP 98
--- NOTE | 2019-07-29 11:48 | P.PN ---
Subjective Progress Note Date: 07/29/19 Principal diagnosis: Acute hypoxic and hypercapnic respiratory failure secondary to acute covid 19 pneumonitis. Patient is a 44-year-old -[place] female past medical history of fibromyalgia who presented as a transfer from [facility] as part of the Covid 19 relief process. Patient had been having symptoms starting on July 05 and she was tested for Covid which came back on July 16 as positive. She initially been hospitalized for one day. She went back to the hospital on 07/18/2019 due to increased work of breathing. She was found to be hypoxic at 87% on room air, chest x-ray showed diffuse bilateral infiltrates, white blood cell count 16, platelets 511, lymphocytes 3.14, d-dimer 2.5 and BNP and troponins were negative. She was subsequently transferred here. She was started on hydroxychloroquine, doxycycline for possible atypical pneumonia and Rocephin for possible secondary bacterial infection. On her O2 requirements increased and pul was consulted they agreed with plan of care. On the morning of she was having increased work of breathing and her heart rate was up to 154. She was given 2 1L bolus with good result. WBC increasing and CXR with more consolidation her ABX were changed to zosyn and vanco. She had worsening respiratory distress. She was subsequently transferred to the ICU. She was intubated on the morning of 07/21/2019. She was started on a Nimbex, propofol, and fentanyl. She was requiring large amounts of sedation. Patient seen and examined at bedside. Currently sedated and paralyzed on vent. Discussed with nursing. Patient intubated this morning at approximately 9:30. Had central line and arterial line placed. On 07/22/2019 patient seen in follow-up in the intensive care unit. She is sedated, intubated, on mechanical ventilator, current vent settings are assist- control with a rate of 26, tidal vital 400, FiO2 40% and PEEP of 5, this morning his blood gases revealed pO2 175, pCO2 of 30, pH of 7.40, this was done on FiO2 of 40%. Today's blood work shows persistent leukocytosis, with white blood cell count of 22.1, hemoglobin is 7.4, lymphopenia with lymphocyte count is 0.7, neutrophilia with neutrophil count of 20.6, d-dimer slightly trending down, 2.04, sodium is 139, potassium is 4.2, chloride is 111, CO2 is 18, BUN of 9, creatinine 0.48. Ferritin remains elevated at 1267, CRP down slightly, at 345, pro-calcitonin was greater than 100. Influenza screen was negative. Blood cult ures were negative, sputum culture is pending. Fever pattern has improved, and last episode of fever was yesterday in the afternoon with a temp of 99.9F, afebrile overnight. Patient is currently on combination of cefepime, and vancomycin for antibiotic coverage, continues on IV Solu-Medrol, hydro xychloroquine. Today's chest x-ray shows some improvement in the right perihilar and infrahilar interstitial airspace disease, and persistent confluent left midlung and left basilar opacity with suspected trace to small left pleural effusion. Current IVs include 0.9 normal saline at a rate of 100 ML per hour, Diprivan is a 40 mics per kilo per minute, fentanyl at 1.5 mics per kilo per minute, Nimbex is at 2 mics per kilo per minute. No vasoactive drips. Reevaluated today on 07/23/19, patient remains in the intensive care unit, intubated and mechanically ventilated. Present vent settings are assist control rate of 26 tidal volume 400 FiO2 40% and PEEP is 12. Patient has a peak airway pressure of 35 plateau pressure of 27. Patient is still on fentanyl Nimbex and on propofol. Propofol is at 60 mcg/kg/m, fentanyl is at 2 mcg/kg/h, and Nimbex is at 1 mcg/kg. Her FiO2 was decreased down to 35%. And I plan to wean and possibly discontinue Nimbex today. CBC continues to show leukocytosis with WBC count of 20.4 hemoglobin is 7 and I plan to give the patient a unit of packed RBCs. Her ABG showed a pO2 of 138 pCO2 of 31 pH of 7.45. FiO2 was decreased down to 35%. Basic metabolic profile is normal renal profile is normal. LDH is down to 707 C-reactive protein is 167 pro-calcitonin is high, hence patient is being covered with antibiotics for superimposed bacterial infection. Chest x- ray continues to show significant left lower lobe consolidation, possibly associated with pleural effusion hence we will likely recommend ultrasound of the chest if does not improve in the next 24 hours. Reevaluated today on 07/24/19, patient remains in the ICU, intubated and mechanically ventilated. Ventilator settings are assist control of 26 tidal volume 400 FiO2 is 35% PEEP is at 12. Decreased down to 8. Her markers are basically about the same. Chest x-ray continues to show dense consolidation in the left lower lobe, possible pleural effusion. However ultrasound of the chest did not show the effusion isn't large enough or safe the Pap at this point. Hence I recommended no thoracentesis at this point. ABG today showed a pO2 of 95 pCO2 of 33 pH of 7.46. And this was on 35% FiO2 and PEEP of 12. WBC count is 20.5 hemoglobin is 8.3 electrolytes in the upper profile are normal. Ferritin remains elevated at 1325 LDH is 783, improving, C-reactive protein is 64.3. Pro-calcitonin remains high at 8.04. Patient remains on cefepime and vancomycin. Today the patient remains on Nimbex fentanyl and propofol at 60 mcg/kg/m, Nimbex is at 2 mcg/kg/m, and fentanyl is 2 mcg/kg/h. Remains on IV fluid of 0.9 normal saline S3 0 mL per hour. The ventilator settings changes today included increase FiO2 to 40% and decrease PEEP to 8. Planning to hold Nimbex, however the patient did not tolerate being off Nimbex, had to be placed back on Nimbex because of extreme agitation and tachypnea and could not be properly ventilated off Nimbex Patient was reevaluated today on 07/25/19, patient has covid 19 pneumonitis, remains intubated, and mechanically ventilated. Her ventilator settings are assist control rate of 26 tidal volume is 400 FiO2 is 40% PEEP is 8. Patient remains on multiple drips including Nimbex at 2 mcg/kg/m propofol at 50 mcg/kg/m, and fentanyl at 2 mcg/kg/m. Multiple attempts have been made yesterday and today to discontinue Nimbex and hopefully maintain the patient on propofol and fentanyl. However the patient seems to get extremely agitated, tachypneic, tachycardic, hypertensive, and have not been able to wean off Nimbex. I will give the patient another trial today. And if could not wean off the Nimbex, at least will cut down the propofol to 40 mcg/kg/m cut down the fentanyl to 1 mcg/kg per hour. Chest x-ray continues to show by basilar infi ltrates with slight improvement. Inflammatory markers are actually showing improvement LDH is down to 1987 and C-reactive protein is 45.6 pro-calcitonin is a bit high at 4.61. ABG today showed a pO2 of 70 pCO2 of 33 pH of 7.54. Electrolytes and renal profile are normal. Liver enzymes are borderline elevated. WBC count is 21.7 hemoglobin is 9.2 Reevaluated today on 07/26/19, patient remains in the ICU, intubated, mechanically ventilated. Her ventilator settings are assist control rate of 26 tidal volume is 400 FiO2 is 40% and PEEP is at 8. Patient is now off fentanyl and off propofol, and she is awake. Does not seem to be in any distress, she is presently on assist control mode of mechanical ventilation, hence after evaluating the patient and evaluating her chest x-ray as well as her labs, I recommended placing the patient on a pressure support of 8 and CPAP. Discontinued completely her fentanyl propofol, and repeated and ABG after half an hour of being on pressure support and CPAP. Then I recommended extubating the patient. Chest x-ray showing improved central opacities bilaterally nonetheless she continues to have some opacities in the left midlung and right lower lobe. But improved compared to baseline. ABG today showed a pO2 of 126 pCO2 of 39 pH of 7.45. And this was on pressure support of 8 and CPAP. Basic metabolic profile was noted to be normal. CBC was normal. Inflammatory markers seem to be improving including LDH, C-reactive protein, and ferritin. Patient was reevaluated today on 07/27/19,patient was extubated yesterday, remains off mechanical ventilation. Tolerated the extubation extremely well. She is actually on 3 L nasal cannula, and her O2 saturation is 98%. Chest x-ray and CT of the chest continues to show left lower lobe consolidation, very small tiny effusion, not enough to consider any diagnostic or therapeutic thoracentesis based on the CT of the chest. Patient has mostly consolidation in the left lower lobe, and very minimal effusion if any. Patient remains on antibiotics, finished her treatment for covid 19 pneumonitis.her d-dimer today is 5.07 her ferritin is 1472 LDH remains a bit high at 1061. And C-reactive protein is 74.7., not much change analyst the last couple of days, but clinically the patient is doing much better.WBC count remains high at 20.0. Hemoglobin is 9.6.patient remains on cefepime. Reevaluated today on 07/28/19, patient tolerated extubation for the last 3 days now. Patient remains in the ICU, on 2 L nasal cannula, O2 saturation is 98%. Chest x-ray continues to show some left lower lobe consolidation. No evidence of significant pleural effusion or empyema. Patient is tolerating oral diet quite well, she seems to be in good spirits, and she denies any specific complaints. WBC count is down to 16.2 hemoglobin is 9.6. Lites are normal d- dimer remains elevated at 5.31. Patient remains on relatively higher dose of Lovenox. She is presently on 40 mg subcu every 12 hours. Reevaluated today on 07/29/2019, patient is sitting up in bed and appears comfortable. Transfer to [facility] yesterday. Currently on 2 L nasal cannula with oxygen saturation 95%. Vital signs stable. Sputum culture negative. States she continues to feel better, denies any complaints. No labs or x-rays complete d today. Continues to be on IV Zosyn, Solu-Medrol. Objective - Vital Signs Vital signs: Vital Signs Temp 98 F 07/29/19 10:45 Pulse 111 H 07/29/19 10:45 Resp 17 07/29/19 10:45 BP 112/76 07/29/19 10:45 Pulse Ox 95 07/29/19 10:45 Intake & Output 07/28/19 07/29/19 07/29/19 18:59 06:59 18:59 Intake Total 482 Output Total 640 Balance -158 Intake: IV 362 .9 250 Piperacillin-Tazobactam 3 100 .375 gm In Sodium Chloride 0.9% 100 ml @ 25 mls/hr IVPB Q8HR [facility] Rx# :[id number] pressure bag 12 Oral 120 Output: Urine 640 Other: Voiding Method Indwelling Catheter Bedpan Bedpan # Voids 2 1 ABP, PAP, CO, CI - Last Documented Arterial Blood Pressure 128/62 - Constitutional Constitutional Comment(s): Appears comfortable General appearance: Present: cooperative, no acute distress, obese - Respiratory Details: Lungs sounds diminished bilaterally, left greater than right. Respirations even, nonlabored. Currently on 2 L nasal cannula. Oxygen saturation 95%. No clubbing or cyanosis present. - Cardiovascular Details: S1, S2 present. Regular rate and rhythm. Palpable peripheral pulses bilaterally. No edema present. No calf pain or tenderness noted. - Gastrointestinal Gastrointestinal Comment(s): Abdomen soft, nontender, nondistended. No organomegaly. Active bowel sounds present 4 quadrants. Tolerating diet. - Genitourinary Genitourinary Comment(s): Continues to void - Integumentary Integumentary Comment(s): Skin is warm and dry. - Neurologic Neurologic: Present: CNII-XII intact - Musculoskeletal Musculoskeletal: Present: strength equal bilaterally - Psychiatric Psychiatric: Present: A&O x's 3, appropriate affect, intact judgment & insight - Allied health notes Allied health notes reviewed: nursing - Labs CBC & Chem 7: 07/28/19 04:28 07/28/19 04:28 Labs: Abnormal Lab Results - Last 24 Hours (Table) 07/28/19 07/28/19 07/28/19 Range/Units 04:28 11:38 16:33 POC Glucose (mg/dL) 120 H 106 H (75-99) mg/dL Ferritin 1465.1 H (10.0-291.0) ng/mL 07/29/19 Range/Units 07:16 POC Glucose (mg/dL) 114 H (75-99) mg/dL Ferritin (10.0-291.0) ng/mL Microbiology - Last 24 Hours (Table) 07/27/19 19:36 Gram Stain - Final Sputum Sputum Culture - Final Assessment and Plan Assessment: Acute hypoxic and hypercapnic respiratory failure secondary to covid 19 pneumonitis, requiring intubation and mechanical ventilation.extubated on 07/26/19, tolerating extubation well. Acute covid 19 pneumonitis recovering nicely. Left lower lobe consolidation, CT of the chest continues to show by basilar consolidation, left greater than right, and not much fluid to consider thoracentesis therapeutic or diagnostic. History of fibromyalgia. History of tubal ligation and breast reduction. Plan: Continue droplet isolation. Consider discharge planning in the next 24-48 hours. Continue incentive spirometer. Continue physical therapy. Continue antibiotics as per infectious disease on the case. Continue IV Solu-Medrol Continue to advance diet Will follow. I, the cosigning physician, performed a history & physical examination of the patient. Lungs sounds are diminished bilaterally, left greater than right. Maintaining good O2 saturations in the 90s on 2 L nasal cannula. I discussed the assessment and plan of care with my nurse practitioner, Valentina Chew. I attest to the above note as dictated by her. Time with Patient: Greater than 30
[2019-07-29 11:53] LABS: Glucose,Whole Blood 145 mg/dL (75-99)
[2019-07-29] MEDS: SODIUM CHLORIDE 0.9% 1,000 ML IV SCH (12:02)
[2019-07-29 14:04] VITALS: BMI 31.8
[2019-07-29 14:42] VITALS: BP 114/74; PULSE 92; RESP 16
--- NOTE | 2019-07-29 15:49 | PN ---
PROGRESS NOTE DATE OF SERVICE: 07/29/2019 REASON FOR FOLLOWUP: Pneumonia. INTERVAL HISTORY: The patient is afebrile. The patient has been breathing comfortably. The patient denies having any chest pain, shortness of breath; with minimal cough. No nausea, no vomiting. No abdominal pain or diarrhea. PHYSICAL EXAMINATION: Blood pressure 112/76, pulse of 111, temperature of 98. She is 95% on 2 L nasal cannula. General description is a middle-aged female up in the chair in no distress. RESPIRATORY SYSTEM: Unlabored breathing. Clear to auscultation anteriorly. HEART: S1, S2. Regular rate and rhythm. ABDOMEN: Soft. No tenderness. LABS: Hemoglobin 9.6, white count 16.2 as of yesterday, not repeated today. Creatinine 0.56. Sputum has been usual respiratory karli. DIAGNOSTIC IMPRESSION AND PLAN: Patient with left lower lobe pneumonia. Patient seems to have shown overall clinical improvement, with sputum negative for any resistant pathogen. Antibiotic adjusted to Augmentin 875 b.i.d. for 10 days and close outpatient followup. Plan of care was discussed with the admitting physician working on discharge. MMODL / IJN: [id number] /
--- NOTE | 2019-07-31 07:22 | P.DS ---
Providers Date of admission: 07/18/19 21:41 Attending physician: John Paul Johnson MD Consults: 07/19/19 00:40 Consult Physician Routine Consulting Provider: Tanisha Hopkins Consult Reason/Comments: covid Do you want consulting provider notified?: Yes 07/19/19 11:22 Consult Physician Routine Consulting Provider: Ida Hough Consult Reason/Comments: covid-19 Do you want consulting provider notified?: Yes Primary care physician: Stated None Hospital Course: Discharge Diagnosis nCoV respiratory disease ARDS Sepsis Pneumonia Anemia Thrombocytosis Costochondritis Fibromyalgia Hospital Course Patient is a 44-year-old -[place] female past medical history of fibromyalgia who presented as a transfer from [facility] as part of the Covid 19 relief process. Patient had been having symptoms starting on July 05 and she was tested for Covid which came back on July 16 as positive. She initially been hospitalized for one day. She went back to the hospital on 07/18/2019 due to increased work of breathing. She was found to be hypoxic at 87% on room air, chest x-ray showed diffuse bilateral infiltrates, white blood cell count 16, platelets 511, lymphocytes 3.14, d-dimer 2.5 and BNP and troponins were negative. She was subsequently transferred here. She was started on hydroxychloroquine, doxycycline for possible atypical pneumonia and Rocephin for possible secondary bacterial infection. On her O2 requirements increased and pul was consulted they agreed with plan of care. On the morning of she was having increased work of breathing and her heart rate was up to 154. She was given 2 1L bolus with good result. WBC increasing and CXR with more consolidation her ABX were changed to zosyn and vanco. She had worsening respiratory distress. She was subsequently transferred to the ICU. She was intubated on the morning of 07/21/2019. She was started on a Nimbex, propofol, and fentanyl. She was requiring large amounts of sedation. Infectious disease was consulted and discontinued vancomycin and Zosyn and continue the patient on cefepime. She completed her course of hydroxychloroquine. She was given intermittent Lasix for diuresis. Her hemoglobin down trended to 7 on 07/23/2019 for which she was given 1 unit PRBC. Her hemoglobin trended up to 9.6 and was stable. She continued to be on the vent and underwent daily sedation holidays until she was extubated on 07/26/2019. She did require clevidipine drip for management of her blood pressure. Chest ultrasound was done which showed an 8.2 cm pocket sized effusion on the left side. CT of the chest was done which showed bilateral lower lobe consolidation and small left-sided effusion with groundglass opacities. respiratory : Equal air entry with no crackles, wheeze, rhonchi or dullne ss.diminished breath sounds at the left base mostly Plan - Discharge Summary Discharge Rx Participant: No New Discharge Prescriptions: New Amoxicillin/Potassium Clav [Augmentin 875-125 Tablet] 1 tab PO Q12HR 10 Days #20 tab Pantoprazole [Protonix] 40 mg PO AC-BRKFST #30 tablet. predniSONE See Taper PO DAILY #1 tab Continue Albuterol Inhaler [Ventolin Hfa Inhaler] 1 - 2 puff INHALATION RT-Q4H PRN PRN Reason: Shortness Of Breath Ipratropium-Albuterol Nebulize [Duoneb 0.5 mg-3 mg/3 ml Soln] 3 ml INHALATION RT-QID PRN PRN Reason: Shortness Of Breath Discharge Medication List Albuterol Inhaler [Ventolin Hfa Inhaler] 1 - 2 puff INHALATION RT-Q4H PRN 07/04 [History] Ipratropium-Albuterol Nebulize [Duoneb 0.5 mg-3 mg/3 ml Soln] 3 ml INHALATION RT-QID PRN 07/19/19 [History] Amoxicillin/Potassium Clav [Augmentin 875-125 Tablet] 1 tab PO Q12HR 10 Days #20 tab 07/29/19 [Rx] Pantoprazole [Protonix] 40 mg PO AC-BRKFST #30 tablet. 07/29/19 [Rx] predniSONE See Taper PO DAILY #1 tab 07/29/19 [Rx] Follow up Appointment(s)/Referral(s): [facility], [NON-STAFF] - Discharge Disposition: HOME SELF-CARE
== END 2019-07-29 16:40 | disposition home or self-care (01) | DRG 870 ==
LOC: 4SSUR 21:41 → 2SICU 07-20 19:56 → 4SSUR 07-28 11:56
PROVIDERS: ADMIT Internal Medicine; ATTEND Internal Medicine
PROC: 03HY32Z Insertion of Monitoring Device into Upper Artery, Percutaneous Approach (ICD-10-PCS; principal; 2019-07-21)
PROC: 4A133B1 Monitoring of Arterial Pressure, Peripheral, Percutaneous Approach (ICD-10-PCS; principal; 2019-07-21)
PROC: 4A133J1 Monitoring of Arterial Pulse, Peripheral, Percutaneous Approach (ICD-10-PCS; principal; 2019-07-21)
PROC: 02HV33Z Insertion of Infusion Device into Superior Vena Cava, Percutaneous Approach (ICD-10-PCS; principal; 2019-07-21)
PROC: 5A1955Z Respiratory Ventilation, Greater than 96 Consecutive Hours (ICD-10-PCS; principal; 2019-07-21)
PROC: 0BH17EZ Insertion of Endotracheal Airway into Trachea, Via Natural or Artificial Opening (ICD-10-PCS; principal; 2019-07-21)
PROC: 5A09357 Assistance with Respiratory Ventilation, Less than 24 Consecutive Hours, Continuous Positive Airway Pressure (ICD-10-PCS; 2019-07-26)
DX: A41.89 Other specified sepsis (principal); U07.1 COVID-19; J12.89 Other viral pneumonia; J80 Acute respiratory distress syndrome; J15.9 Unspecified bacterial pneumonia; D64.9 Anemia, unspecified; D72.810 Lymphocytopenia; E87.6 Hypokalemia; I50.9 Heart failure, unspecified; M79.7 Fibromyalgia; M94.0 Chondrocostal junction syndrome [Tietze]; Y95 Nosocomial condition; Z90.710 Acquired absence of both cervix and uterus; Z98.51 Tubal ligation status; R79.1 Abnormal coagulation profile
CPT/HCPCS: 36600; 71045; 71250; 76604; 80048; 80053; 80202; 82550; 82728; 82805; 83605; 83615; 83735; 83880; 84132; 84145; 85025; 85027; 85379; 86140; 86850; 86900; 86901; 86920; 87040; 87070; 87205; 87502; 93005; 94002; 94003